=== PATIENT | male | born 1940 | race Caucasian/White ===

== ENCOUNTER 2018-04-19 17:39 | Emergency (ER) | payer BC, MEDICAID, MEDICARE | END 2018-04-19 20:10 | disposition home or self-care (01) | LOC: E/R 17:39 | DX: J95.01 Hemorrhage from tracheostomy stoma (principal) | CPT/HCPCS: 99282 ==

== ENCOUNTER 2018-04-28 21:16 | Inpatient (IN) | payer BC, MEDICAID ==
[2018-04-28 21:47] LABS: WHITE BLOOD COUNT 30.9 10^3/ul (4.8-10.8)
[2018-04-28 21:47] LABS: ABNORMAL IP MESSAGE 1; ADD MAN DIFF? YES; HEMOGLOBIN 10.7 g/dl (14.0-18.0); MEAN CORPUSCULAR HEMOGLOBIN 32.6 pg (29.0-33.0); MEAN CORPUSCULAR HGB CONC 30.6 g/dl (32.0-37.0); MEAN CORPUSCULAR VOLUME 106.7 fl (82.0-101.0); MEAN PLATELET VOLUME 11.3 fl (7.4-10.4); NUCLEATED RED BLOOD CELLS% 0.1 /100WBC (0.0-0.0); PLATELET COUNT 255 10^3/UL (140-415); POSITIVE DIFF @See below; RED BLOOD COUNT 3.28 10^6/ul (4.70-6.10); RED CELL DISTRIBUTION WIDTH 17.2 % (11.5-14.5)
[2018-04-28] MEDS: CEFEPIME 2GM/50 ML (PMX) 50 ML IVPB (22:01)
[2018-04-28] MEDS: ACETAMINOPHEN 650 MG SUPP PR (22:01)
[2018-04-28] MEDS: SOD CHLORIDE 0.9% 1,000 ML IV ×3 (22:01→23:10)
[2018-04-28 22:06] LABS: ANION GAP 22 (8-16); CARBON DIOXIDE 16 mmol/L (21-31); CHLORIDE 122 mmol/L (97-110); GLUCOSE 197 mg/dl (70-220); SODIUM 154 mmol/L (135-144)
[2018-04-28 22:07] LABS: INR 1.49; PROTIME 18.3 Sec (11.9-14.9); PT RATIO 1.4
[2018-04-28 22:08] LABS: PARTIAL THROMBOPLASTIN TIME 30.7 Sec (23.0-35.0)
[2018-04-28 22:19] LABS: LACTIC ACID 3.2 mmol/L (0.5-2.0)
[2018-04-28 22:30] LABS: POTASSIUM 6.2 mmol/L (3.5-5.1)
[2018-04-28 22:31] LABS: BLOOD UREA NITROGEN > 240 mg/dl (7-20); TROPONIN-I 0.016 ng/ml (0.000-0.120)
[2018-04-28 22:36] LABS: ANISOCYTOSIS 1+ (0-0); BAND NEUTROPHILS % (M) 13 % (0-4); EOSINOPHILS % (M) 1 % (0-7); LYMPHOCYTES #M 0.9 10^3/ul (0.8-2.9); LYMPHOCYTES % (M) 3 % (15-51); MONOCYTE #M 0.3 10^3/ul (0.3-0.9); MONOCYTES % (M) 1 % (0-11); PLATELET ESTIMATE NORMAL; SEG NEUT #M 26.6 10^3/ul (1.6-7.5); SEGMENTED NEUTROPHILS (M) % 82 % (39-77); SMUDGE%M 8 % (0-0)
[2018-04-28] MEDS: VANCOMYCIN 1 GM (PMX) 250 ML IVPB (22:49)
[2018-04-28] MEDS: SOD CHLORIDE 0.9% 150 ML IV (23:11)
[2018-04-28] MEDS: CALCIUM GLUCONATE 10% 1 GM in DEXTROSE 5% 100 ML IVPB (23:12)
[2018-04-28] MEDS: METOPROLOL 5 MG INJ IV (23:16)
[2018-04-28] MEDS ORDERED: IPRATROPIUM (HFA) 12.9 GM INHALER INH (23:30)
[2018-04-28] MEDS ORDERED: VANCOMYCIN IV PER PHARMACY XX (23:30)
[2018-04-28] MEDS ORDERED: ALBUTEROL 0.083% (NEB) 2.5 MG/3 ML AMP NEB ×2 (23:30)
[2018-04-28] MEDS: DOCUSATE SODIUM 100 MG CAP PO (23:30)
[2018-04-28] MEDS: MIDODRINE 5 MG TAB GTB (23:45)
[2018-04-29] MEDS ORDERED: DEXTROSE 50% 50 ML SYRINGE IV
[2018-04-29] MEDS: NORepinephrine 8MG/250 ML (PMX 250 ML IV (00:08)
[2018-04-29] MEDS: NA BICARBONATE 8.4% 50 ML SYG IV ×3 (00:12→07:00)
[2018-04-29 00:16] LABS: ADD UMIC YES; UR ASCORBIC ACID NEGATIVE (NEGATIVE); UR BACTERIA MODERATE /HPF (NONE SEEN); UR BILIRUBIN (Dip) NEGATIVE (NEGATIVE); UR BLOOD (Dip) 2+ mg/dL (NEGATIVE); UR CLARITY TURBID (CLEAR); UR COLOR AMBER (YELLOW); UR GLUCOSE (Dip) 1+ mg/dL (NEGATIVE); UR KETONES (Dip) TRACE mg/dL (NEGATIVE); UR LEUKOCYTE ESTERASE (Dip) 2+ Leu/ul (NEGATIVE); UR NITRITE (Dip) NEGATIVE (NEGATIVE); UR RBC 36 /HPF (0-5); UR SPECIFIC GRAVITY (Dip) 1.026 (1.003-1.030); UR TOTAL PROTEIN (Dip) 2+ mg/dl (NEGATIVE); UR UROBILINOGEN (Dip) NEGATIVE (NEGATIVE); UR WBC 87 /HPF (0-5)
[2018-04-29 00:25] LABS: AADO2 Arterial 188.9 mmHg (7.0-24.0); Arterial Base Excess -4.9 mmol/L (-3.0-3); Arterial Blood Gas Oxygen Sat 93.2 mmHG (95.0-100.0); Arterial COHb 0.3 % (0.0-3.0); Arterial Fraction of Oxyhgb 92.6 % (93.0-99.0); Arterial MetHb 0.3 % (0.0-1.5); Arterial pCO2 27.4 mmhg (35-45); MODE COOL AEROSOL; Site Right Brachial
[2018-04-29 00:30] LABS: MAGNESIUM 2.5 mg/dl (1.7-2.5)
[2018-04-29] MEDS: DEXTROSE 5% 1,000 ML IV (00:31)
[2018-04-29 00:33] LABS: ALANINE AMINOTRANSFERASE 266 IU/L (13-69); ALBUMIN/GLOBULIN RATIO 0.58; ALKALINE PHOSPHATASE 211 IU/L (42-121); ANION GAP 16 (8-16); ASPARTATE AMINO TRANSFERASE 93 IU/L (15-46); BILIRUBIN,INDIRECT 0.1 mg/dl (0-1.1); BILIRUBIN,TOTAL 0.1 mg/dl (0.2-1.3); CALCIUM 9.1 mg/dl (8.4-10.2); CARBON DIOXIDE 15 mmol/L (21-31); CHLORIDE 127 mmol/L (97-110); CREATININE 4.68 mg/dl (0.61-1.24); GLUCOSE 210 mg/dl (70-220); POTASSIUM 5.2 mmol/L (3.5-5.1); SODIUM 153 mmol/L (135-144); TOTAL PROTEIN 5.4 g/dl (6.1-8.1)
[2018-04-29 00:46] LABS: BLOOD UREA NITROGEN > 240 mg/dl (7-20)
[2018-04-29 00:50] LABS: LACTIC ACID 2.2 mmol/L (0.5-2.0)
[2018-04-29] MEDS: ACCU-CHEK XX ×23 (02:00→23:00)
[2018-04-29 02:03] LABS: HEMOGLOBIN A1C 5.4 % (0-5.9)
[2018-04-29] MEDS: PIPER-TAZO 2.25 GM (PMX) 50 ML IVPB ×3 (02:04→20:57)
[2018-04-29 02:33] LABS: SODIUM,URINE RANDOM 29 mmol/L (30-90)
[2018-04-29 02:38] LABS: CREATININE,URINE RANDOM 90.65 mg/dl (20-370)
[2018-04-29 02:42] LABS: UR AMORPHOUS CRYSTAL FEW /HPF (NONE SEEN); UR BACTERIA FEW /HPF (NONE SEEN); UR RBC 36 /HPF (0-5); UR SQUAMOUS EPITHELIAL CELL FEW /HPF (FEW); UR WBC > 182 /HPF (0-5)
[2018-04-29 02:57] LABS: PROTEIN/CREAT RATIO 2.97 RATIO
[2018-04-29] MEDS: METOPROLOL 5 MG INJ IV (03:08)
[2018-04-29] MEDS ORDERED: CARBOXYMETHYLCELLULOSE 0.5% 0.4 ML OPH BOTH EYES (03:30)
[2018-04-29] MEDS: morphine 2 MG INJ IV (04:26)
[2018-04-29] MEDS: DILTIAZEM 25 MG INJ IV ×2 (04:34→05:00)
[2018-04-29] MEDS: VANCOMYCIN 750 MG in SOD CHLORIDE 0.9% 150 ML IVPB (05:00)
[2018-04-29 05:02] LABS: LACTIC ACID 2.7 mmol/L (0.5-2.0)
[2018-04-29 05:05] LABS: AADO2 Arterial 316.8 mmHg (7.0-24.0); Allen Test ACCEPTAB; Arterial Base Excess -11.4 mmol/L (-3.0-3); Arterial COHb 0.3 % (0.0-3.0); Arterial Fraction of Oxyhgb 95.4 % (93.0-99.0); Arterial HCO3 12.6 mmol/L (22.0-26.0); Arterial MetHb 0.3 % (0.0-1.5); Arterial Total Hemglobin 11.3 g/dl (12.0-18.0); Arterial pCO2 23.9 mmhg (35-45); MODE TRACH COLLAR; Site Right Radial
[2018-04-29] MEDS: INSULIN HUMAN REGULAR 100 UNIT in SOD CHLORIDE 0.9% 99 ML IV (05:10)
[2018-04-29] MEDS: PANTOPRAZOLE 40 MG INJ IV (05:32)
[2018-04-29] MEDS: LEVOTHYROXINE 50 MCG TAB GTB (06:14)
[2018-04-29] MEDS: DILTIAZEM-D5W 125MG/125ML DRIP 125 ML IV (06:22)
[2018-04-29 06:25] LABS: OSMOLALITY,URINE 466 mOsm/kg (250-1200)
[2018-04-29 06:25] LABS: OSMOLALITY 431 mOsm/kg (280-295)
[2018-04-29 06:42] LABS: ALANINE AMINOTRANSFERASE 244 IU/L (13-69); ALBUMIN 2.2 g/dl (3.3-4.9); ALBUMIN/GLOBULIN RATIO 0.56; ALKALINE PHOSPHATASE 215 IU/L (42-121); ANION GAP 16 (8-16); ASPARTATE AMINO TRANSFERASE 89 IU/L (15-46); BILIRUBIN,INDIRECT 0.1 mg/dl (0-1.1); BILIRUBIN,TOTAL 0.1 mg/dl (0.2-1.3); CARBON DIOXIDE 16 mmol/L (21-31); CHLORIDE 127 mmol/L (97-110); CREATINE KINASE 768 IU/L (23-200); CREATININE 4.49 mg/dl (0.61-1.24); GLUCOSE 273 mg/dl (70-220); POTASSIUM 4.8 mmol/L (3.5-5.1); SODIUM 154 mmol/L (135-144); TOTAL PROTEIN 6.1 g/dl (6.1-8.1)
[2018-04-29 06:54] LABS: CK INDEX 1.2; TROPONIN-I 0.051 ng/ml (0.000-0.120)
[2018-04-29] MEDS: SOD CHLORIDE 0.45% 1,000 ML IV ×3 (07:00→20:24)
[2018-04-29] MEDS ORDERED: AMIODARONE 900 MG in DEXTROSE 5% 482 ML IV (08:00)
[2018-04-29] MEDS ORDERED: AMIODARONE 150MG/D5W BOLUS 100 ML IV (08:00)
[2018-04-29] MEDS ORDERED: AMIODARONE 150MG/D5W BOLUS 100 ML ×2 (08:18→12:22)
[2018-04-29 08:35] LABS: ALANINE AMINOTRANSFERASE 229 IU/L (13-69); ALBUMIN 2.2 g/dl (3.3-4.9); ALBUMIN/GLOBULIN RATIO 0.57; ALKALINE PHOSPHATASE 198 IU/L (42-121); ANION GAP 15 (8-16); ASPARTATE AMINO TRANSFERASE 79 IU/L (15-46); BILIRUBIN,INDIRECT 0.1 mg/dl (0-1.1); BILIRUBIN,TOTAL 0.1 mg/dl (0.2-1.3); CALCIUM 8.9 mg/dl (8.4-10.2); CARBON DIOXIDE 17 mmol/L (21-31); CHLORIDE 127 mmol/L (97-110); CREATININE 4.39 mg/dl (0.61-1.24); GLUCOSE 168 mg/dl (70-220); POTASSIUM 4.4 mmol/L (3.5-5.1); SODIUM 155 mmol/L (135-144)
[2018-04-29] MEDS ORDERED: NON-FORMULARY/PATIENT OWN MED (Protein Supplement (Promod) 30 ML) GTB (09:00)
[2018-04-29 09:10] LABS: PHOSPHORUS 3.1 mg/dl (2.5-4.9)
[2018-04-29 09:10] LABS: MAGNESIUM 2.3 mg/dl (1.7-2.5)
[2018-04-29] MEDS: ASCORBIC ACID 500 MG TAB GTB (09:54)
[2018-04-29] MEDS: FLUDROCORTISONE 0.1 MG TAB GTB (09:55)
[2018-04-29] MEDS: DOCUSATE SODIUM 100 MG CAP PO ×2 (11:30→22:59)
[2018-04-29] MEDS: AMIODARONE 150MG/D5W BOLUS 100 ML IV (12:46)
[2018-04-29] MEDS: ASPIRIN 325 MG TAB PO (13:08)
[2018-04-29] MEDS: DIGOXIN 500 MCG INJ IV ×2 (13:08→17:56)
[2018-04-29 13:14] LABS: ALANINE AMINOTRANSFERASE 219 IU/L (13-69); ALBUMIN 1.9 g/dl (3.3-4.9); ALBUMIN/GLOBULIN RATIO 0.54; ALKALINE PHOSPHATASE 200 IU/L (42-121); ANION GAP 17 (8-16); ASPARTATE AMINO TRANSFERASE 73 IU/L (15-46); BILIRUBIN,INDIRECT 0.2 mg/dl (0-1.1); BILIRUBIN,TOTAL 0.2 mg/dl (0.2-1.3); CALCIUM 8.6 mg/dl (8.4-10.2); CARBON DIOXIDE 17 mmol/L (21-31); CHLORIDE 127 mmol/L (97-110); GLUCOSE 110 mg/dl (70-220); POTASSIUM 4.7 mmol/L (3.5-5.1); SODIUM 156 mmol/L (135-144); TOTAL PROTEIN 5.4 g/dl (6.1-8.1)
[2018-04-29 13:17] LABS: CREATINE KINASE 593 IU/L (23-200)
[2018-04-29 13:25] LABS: CK INDEX 1.1; CK-MB 6.73 ng/ml (0.0-2.4); TROPONIN-I 0.055 ng/ml (0.000-0.120)
[2018-04-29] MEDS: HEPARIN 5,000 UNIT/0.5 ML VIAL SC ×2 (14:00→21:49)
[2018-04-29] MEDS: AMIODARONE 900 MG in DEXTROSE 5% 482 ML IV (14:38)
[2018-04-29] MEDS: HYDROCORTISONE 100 MG INJ IV ×2 (14:54→21:48)
[2018-04-29 15:37] LABS: ALANINE AMINOTRANSFERASE 190 IU/L (13-69); ALBUMIN 2.5 g/dl (3.3-4.9); ALBUMIN/GLOBULIN RATIO 0.71; ALKALINE PHOSPHATASE 186 IU/L (42-121); ANION GAP 13 (8-16); ASPARTATE AMINO TRANSFERASE 70 IU/L (15-46); BILIRUBIN,INDIRECT 0.1 mg/dl (0-1.1); BILIRUBIN,TOTAL 0.1 mg/dl (0.2-1.3); CALCIUM 8.6 mg/dl (8.4-10.2); CARBON DIOXIDE 17 mmol/L (21-31); CHLORIDE 128 mmol/L (97-110); CREATININE 4.26 mg/dl (0.61-1.24); GLUCOSE 116 mg/dl (70-220); POTASSIUM 4.7 mmol/L (3.5-5.1); SODIUM 153 mmol/L (135-144)
[2018-04-29 15:39] LABS: LACTIC ACID 1.4 mmol/L (0.5-2.0)
[2018-04-29] MEDS: VASOPRESSIN 60 UNIT in DEXTROSE 5% 57 ML IV (15:42)
[2018-04-29 15:46] LABS: BLOOD UREA NITROGEN 236 mg/dl (7-20)
[2018-04-29] MEDS: ATORVASTATIN 10 MG TAB GTB (20:24)
[2018-04-29 20:43] LABS: ALANINE AMINOTRANSFERASE 182 IU/L (13-69); ALBUMIN 2.2 g/dl (3.3-4.9); ALBUMIN/GLOBULIN RATIO 0.59; ALKALINE PHOSPHATASE 196 IU/L (42-121); ANION GAP 16 (8-16); ASPARTATE AMINO TRANSFERASE 61 IU/L (15-46); BILIRUBIN,INDIRECT 0.1 mg/dl (0-1.1); BILIRUBIN,TOTAL 0.1 mg/dl (0.2-1.3); CALCIUM 8.5 mg/dl (8.4-10.2); CARBON DIOXIDE 17 mmol/L (21-31); CHLORIDE 125 mmol/L (97-110); CREATININE 4.27 mg/dl (0.61-1.24); GLUCOSE 132 mg/dl (70-220); POTASSIUM 4.8 mmol/L (3.5-5.1); SODIUM 153 mmol/L (135-144); TOTAL PROTEIN 5.9 g/dl (6.1-8.1)
[2018-04-29 20:52] LABS: BLOOD UREA NITROGEN 230 mg/dl (7-20)
[2018-04-29 21:06] LABS: AADO2 Arterial 275.8 mmHg (7.0-24.0); Allen Test ACCEPTAB; Arterial Base Excess -8.3 mmol/L (-3.0-3); Arterial Blood Gas Oxygen Sat 98.3 mmHG (95.0-100.0); Arterial COHb 0.2 % (0.0-3.0); Arterial Fraction of Oxyhgb 97.7 % (93.0-99.0); Arterial HCO3 14.7 mmol/L (22.0-26.0); Arterial MetHb 0.4 % (0.0-1.5); Arterial Total Hemglobin 9.6 g/dl (12.0-18.0); Arterial pCO2 23.1 mmhg (35-45); MODE TRACH COLLAR; Site Left Radial
[2018-04-29] MEDS: ACETAMINOPHEN 650 MG SUPP PR (21:17)
[2018-04-30] MEDS: ACCU-CHEK XX ×20 (00:20→19:00)
[2018-04-30] MEDS: INSULIN HUMAN REGULAR 100 UNIT in SOD CHLORIDE 0.9% 99 ML IV (01:57)
[2018-04-30] MEDS: DEXTROSE 50% 50 ML SYRINGE IV (02:23)
[2018-04-30] MEDS: VASOPRESSIN 60 UNIT in DEXTROSE 5% 57 ML IV ×2 (03:30→06:26)
[2018-04-30] MEDS: SOD CHLORIDE 0.45% 1,000 ML IV ×3 (03:41→16:20)
[2018-04-30 05:13] LABS: ABNORMAL IP MESSAGE 1; HEMATOCRIT 26.4 % (42.0-52.0); HEMOGLOBIN 8.1 g/dl (14.0-18.0); MEAN CORPUSCULAR HEMOGLOBIN 32.9 pg (29.0-33.0); MEAN CORPUSCULAR HGB CONC 30.7 g/dl (32.0-37.0); MEAN CORPUSCULAR VOLUME 107.3 fl (82.0-101.0); MEAN PLATELET VOLUME 11.9 fl (7.4-10.4); NUCLEATED RED BLOOD CELLS% 0.1 /100WBC (0.0-0.0); PLATELET COUNT 175 10^3/UL (140-415); POSITIVE DIFF @See below; RED BLOOD COUNT 2.46 10^6/ul (4.70-6.10); RED CELL DISTRIBUTION WIDTH 17.3 % (11.5-14.5)
[2018-04-30 05:13] LABS: WHITE BLOOD COUNT 32.2 10^3/ul (4.8-10.8)
[2018-04-30 05:46] LABS: ANION GAP 18 (8-16); CALCIUM 7.9 mg/dl (8.4-10.2); CARBON DIOXIDE 15 mmol/L (21-31); CHLORIDE 122 mmol/L (97-110); CREATININE 4.06 mg/dl (0.61-1.24); GLUCOSE 154 mg/dl (70-220); MAGNESIUM 2.1 mg/dl (1.7-2.5); PHOSPHORUS 3.7 mg/dl (2.5-4.9); SODIUM 150 mmol/L (135-144)
[2018-04-30 05:48] LABS: ADD MAN DIFF? YES
[2018-04-30 05:56] LABS: BLOOD UREA NITROGEN 219 mg/dl (7-20)
[2018-04-30] MEDS: HYDROCORTISONE 100 MG INJ IV ×3 (06:11→21:10)
[2018-04-30] MEDS: PANTOPRAZOLE 40 MG INJ IV (06:11)
[2018-04-30] MEDS: LEVOTHYROXINE 100 MCG VIAL IV (06:11)
[2018-04-30] MEDS: HEPARIN 5,000 UNIT/0.5 ML VIAL SC ×3 (06:31→21:11)
[2018-04-30 06:42] LABS: ANISOCYTOSIS 1+ (0-0); BAND NEUTROPHILS #M 0.9 10^3/ul (0.0-0.6); BAND NEUTROPHILS % (M) 3 % (0-4); BURR CELLS 1+ (0-0); EOSINOPHILS % (M) 1 % (0-7); LYMPHOCYTES #M 1.6 10^3/ul (0.8-2.9); LYMPHOCYTES % (M) 5 % (15-51); PLATELET ESTIMATE NORMAL; POIKILOCYTOSIS 1+ (0-0); SEG NEUT #M 29.6 10^3/ul (1.6-7.5); SEGMENTED NEUTROPHILS (M) % 91 % (39-77); SMUDGE%M 15 % (0-0)
[2018-04-30] MEDS: FLUDROCORTISONE 0.1 MG TAB GTB (10:00)
[2018-04-30] MEDS: ASCORBIC ACID 500 MG TAB GTB (10:00)
[2018-04-30] MEDS: ASPIRIN 325 MG TAB PO (10:00)
[2018-04-30] MEDS: ACETAMINOPHEN 650 MG SUPP PR (10:01)
[2018-04-30] MEDS: PIPER-TAZO 2.25 GM (PMX) 50 ML IVPB (10:01)
[2018-04-30] MEDS: HYDROmorphONE 1 MG/ML SYG IV ×4 (11:00→21:09)
[2018-04-30] MEDS ORDERED: HYDROmorphONE 2 MG/ML SYG (11:14)
[2018-04-30] MEDS: INSULIN ASPART [NOVOLOG] 3 ML PEN SC ×3 (11:23→21:00)
[2018-04-30] MEDS: DOCUSATE SODIUM 100 MG CAP PO ×2 (11:54→22:38)
[2018-04-30 13:18] LABS: HEPATITIS B SURFACE ANTIBODY NEGATIVE (NEGATIVE)
[2018-04-30] MEDS: MUPIROCIN 2% 22 GM OINT TOP (14:00)
[2018-04-30 14:15] LABS: HEPATITIS B SURFACE ANTIGEN NEGATIVE (NEGATIVE)
[2018-04-30 14:27] LABS: ANION GAP 18 (8-16); CARBON DIOXIDE 14 mmol/L (21-31); CHLORIDE 123 mmol/L (97-110); CREATININE 4.38 mg/dl (0.61-1.24); GLUCOSE 147 mg/dl (70-220); POTASSIUM 4.9 mmol/L (3.5-5.1); SODIUM 150 mmol/L (135-144)
[2018-04-30 14:37] LABS: BLOOD UREA NITROGEN 222 mg/dl (7-20)
[2018-04-30] MEDS: MEROPENEM 500MG/50 ML (PMX) 50 ML IVPB ×2 (17:29→22:36)
[2018-04-30] MEDS: PHENYLephrine 80 MG in DEXTROSE 5% 492 ML IV (19:00)
[2018-04-30] MEDS: AMIODARONE 900 MG in DEXTROSE 5% 482 ML IV (20:17)
[2018-04-30 20:28] LABS: AADO2 Arterial 152.8 mmHg (7.0-24.0); Allen Test ACCEPTAB; Arterial Base Excess -10.4 mmol/L (-3.0-3); Arterial Blood Gas Oxygen Sat 97.4 mmHG (95.0-100.0); Arterial COHb 0.3 % (0.0-3.0); Arterial Fraction of Oxyhgb 96.7 % (93.0-99.0); Arterial HCO3 14.2 mmol/L (22.0-26.0); Arterial MetHb 0.4 % (0.0-1.5); Arterial Total Hemglobin 8.8 g/dl (12.0-18.0); Arterial pCO2 27.1 mmhg (35-45); MODE VENT - AC; Site Right Radial
[2018-04-30] MEDS: ATORVASTATIN 10 MG TAB GTB (21:10)
[2018-05-01] MEDS: SOD CHLORIDE 0.45% 1,000 ML IV (00:51)
[2018-05-01] MEDS: MUPIROCIN 2% 22 GM OINT TOP ×3 (00:52→23:27)
[2018-05-01] MEDS: PHENYLephrine 80 MG in DEXTROSE 5% 492 ML IV ×3 (03:05→22:43)
[2018-05-01] MEDS: VASOPRESSIN 60 UNIT in DEXTROSE 5% 57 ML IV ×2 (03:30→14:34)
[2018-05-01] MEDS: HYDROmorphONE 1 MG/ML SYG IV ×2 (03:45→13:29)
[2018-05-01] MEDS: COLLAGENASE 5 GM (UD JAR) TOP ×3 (03:56→08:19)
[2018-05-01] MEDS ORDERED: PENDING SANTYL ORDER FOR WOUND CARE XX (04:00)
[2018-05-01] MEDS: HYDROCORTISONE 100 MG INJ IV ×3 (05:06→22:06)
[2018-05-01] MEDS: PANTOPRAZOLE 40 MG INJ IV (05:06)
[2018-05-01] MEDS: LEVOTHYROXINE 100 MCG VIAL IV (05:06)
[2018-05-01] MEDS: HEPARIN 5,000 UNIT/0.5 ML VIAL SC ×3 (05:14→22:12)
[2018-05-01 05:19] LABS: ADD MAN DIFF? NO
[2018-05-01 05:28] LABS: ABNORMAL IP MESSAGE 1; BASOPHIL # 0.1 10^3/ul (0.0-0.1); BASOPHILS % 0.2 % (0.0-2.0); HEMATOCRIT 25.6 % (42.0-52.0); HEMOGLOBIN 7.8 g/dl (14.0-18.0); LYMPHOCYTES # 0.9 10^3/ul (0.8-2.9); LYMPHOCYTES % 2.5 % (15.0-51.0); MEAN CORPUSCULAR HEMOGLOBIN 33.1 pg (29.0-33.0); MEAN CORPUSCULAR HGB CONC 30.5 g/dl (32.0-37.0); MEAN CORPUSCULAR VOLUME 108.5 fl (82.0-101.0); MEAN PLATELET VOLUME 11.5 fl (7.4-10.4); MONOCYTE # 0.6 10^3/ul (0.3-0.9); MONOCYTES % 1.6 % (0.0-11.0); NEUTROPHIL # 34.4 10^3/ul (1.6-7.5); NEUTROPHILS % 93.9 % (39.0-77.0); NUCLEATED RED BLOOD CELLS% 0.1 /100WBC (0.0-0.0); PLATELET COUNT 199 10^3/UL (140-415); POSITIVE DIFF @See below; RED BLOOD COUNT 2.36 10^6/ul (4.70-6.10); RED CELL DISTRIBUTION WIDTH 17.2 % (11.5-14.5)
[2018-05-01 05:28] LABS: WHITE BLOOD COUNT 36.7 10^3/ul (4.8-10.8)
[2018-05-01 05:36] LABS: VANCOMYCIN,RANDOM 11.1 ug/ml
[2018-05-01 05:46] LABS: ANION GAP 19 (8-16); CALCIUM 7.9 mg/dl (8.4-10.2); CARBON DIOXIDE 14 mmol/L (21-31); CHLORIDE 119 mmol/L (97-110); CREATININE 4.34 mg/dl (0.61-1.24); GLUCOSE 171 mg/dl (70-220); MAGNESIUM 2.2 mg/dl (1.7-2.5); PHOSPHORUS 6.6 mg/dl (2.5-4.9); POTASSIUM 4.8 mmol/L (3.5-5.1); SODIUM 147 mmol/L (135-144)
[2018-05-01 05:57] LABS: BLOOD UREA NITROGEN 217 mg/dl (7-20)
[2018-05-01] MEDS ORDERED: PHENYLephrine 20MG IN 250 ML 250 ML ×2 (07:38→10:44)
[2018-05-01] MEDS: SOD CHLORIDE 0.9% 1,000 ML IV ×2 (07:49→23:27)
[2018-05-01] MEDS: ASCORBIC ACID 500 MG TAB GTB (08:19)
[2018-05-01] MEDS: MEROPENEM 500MG/50 ML (PMX) 50 ML IVPB (08:19)
[2018-05-01] MEDS: ASPIRIN 325 MG TAB PO (08:19)
[2018-05-01] MEDS: FLUDROCORTISONE 0.1 MG TAB GTB (08:19)
[2018-05-01] MEDS: INSULIN ASPART [NOVOLOG] 3 ML PEN SC ×4 (08:52→21:00)
[2018-05-01] MEDS: DOCUSATE SODIUM 100 MG CAP PO ×2 (12:14→23:26)
[2018-05-01 16:06] LABS: MYCOPLASMA PNEUMONIAE AB (IGG) 1.43
[2018-05-01] MEDS: PIPER-TAZO 2.25 GM (PMX) 50 ML IVPB ×2 (17:43→23:32)
[2018-05-01] MEDS: AMIODARONE 200 MG TAB PO (17:44)
[2018-05-01] MEDS: VANCOMYCIN 1 GM 250 ML IVPB (17:44)
[2018-05-01] MEDS: MANNITOL 25% 50 ML INJ IV* ×2 (20:30→22:55)
[2018-05-01] MEDS ORDERED: ALBUMIN HUMAN 25% 0 ML (21:01)
[2018-05-01] MEDS: ATORVASTATIN 10 MG TAB GTB (22:06)
[2018-05-01] MEDS ORDERED: HEPARIN 1000 UNITS/ML 10 ML INJ CATHETER (22:30)
[2018-05-01] MEDS: HEPARIN 1000 UNITS/ML 10 ML INJ CATHETER (23:54)
[2018-05-02] MEDS: VASOPRESSIN 60 UNIT in DEXTROSE 5% 57 ML IV ×2 (03:30→15:30)
[2018-05-02 04:58] LABS: WHITE BLOOD COUNT 22.6 10^3/ul (4.8-10.8)
[2018-05-02 04:58] LABS: ABNORMAL IP MESSAGE 1; HEMATOCRIT 21.5 % (42.0-52.0); MEAN CORPUSCULAR HEMOGLOBIN 32.8 pg (29.0-33.0); MEAN CORPUSCULAR HGB CONC 31.2 g/dl (32.0-37.0); MEAN CORPUSCULAR VOLUME 105.4 fl (82.0-101.0); MEAN PLATELET VOLUME 11.7 fl (7.4-10.4); NUCLEATED RED BLOOD CELLS% 0.2 /100WBC (0.0-0.0); PLATELET COUNT 138 10^3/UL (140-415); POSITIVE DIFF @See below; RED BLOOD COUNT 2.04 10^6/ul (4.70-6.10); RED CELL DISTRIBUTION WIDTH 16.9 % (11.5-14.5)
[2018-05-02 05:18] LABS: ADD MAN DIFF? YES; HEMOGLOBIN 6.7 g/dl (14.0-18.0)
[2018-05-02 05:19] LABS: ANION GAP 13 (8-16); CALCIUM 7.3 mg/dl (8.4-10.2); CARBON DIOXIDE 20 mmol/L (21-31); CHLORIDE 114 mmol/L (97-110); CREATININE 2.97 mg/dl (0.61-1.24); GLUCOSE 145 mg/dl (70-220); MAGNESIUM 1.9 mg/dl (1.7-2.5); PHOSPHORUS 5.4 mg/dl (2.5-4.9); POTASSIUM 3.6 mmol/L (3.5-5.1); SODIUM 143 mmol/L (135-144)
[2018-05-02 05:32] LABS: BLOOD UREA NITROGEN 138 mg/dl (7-20)
[2018-05-02] MEDS: PANTOPRAZOLE 40 MG INJ IV (05:38)
[2018-05-02] MEDS: HYDROCORTISONE 100 MG INJ IV ×3 (05:38→21:22)
[2018-05-02] MEDS: PIPER-TAZO 2.25 GM (PMX) 50 ML IVPB ×3 (05:39→21:23)
[2018-05-02] MEDS: LEVOTHYROXINE 100 MCG VIAL IV (05:39)
[2018-05-02] MEDS: HEPARIN 5,000 UNIT/0.5 ML VIAL SC ×3 (05:41→21:24)
[2018-05-02 07:36] LABS: ANISOCYTOSIS 1+ (0-0); PLATELET ESTIMATE DECREASED; POIKILOCYTOSIS 1+ (0-0); POLYCHROMASIA 1+ (0-0); SEGMENTED NEUTROPHILS (M) % 100 % (39-77); SMUDGE%M 4 % (0-0); TOXIC GRANULATION 1+ (0-0)
[2018-05-02] MEDS: ASPIRIN 325 MG TAB PO (08:16)
[2018-05-02] MEDS: MUPIROCIN 2% 22 GM OINT TOP (08:17)
[2018-05-02] MEDS: COLLAGENASE 5 GM (UD JAR) TOP (08:17)
[2018-05-02] MEDS: SODIUM HYPOCHLORITE (1/40) 1 APPLIC BTL IRR (08:17)
[2018-05-02] MEDS: FLUDROCORTISONE 0.1 MG TAB GTB (08:17)
[2018-05-02] MEDS: ASCORBIC ACID 500 MG TAB GTB (08:17)
[2018-05-02] MEDS: AMIODARONE 200 MG TAB PO ×3 (08:18→21:22)
[2018-05-02 08:27] LABS: SODIUM,URINE RANDOM < 13 mmol/L (30-90)
[2018-05-02 08:30] LABS: ADD UMIC YES; UR ASCORBIC ACID NEGATIVE (NEGATIVE); UR BILIRUBIN (Dip) NEGATIVE (NEGATIVE); UR BLOOD (Dip) 2+ mg/dL (NEGATIVE); UR BUDDING YEAST FEW /HPF (NONE SEEN); UR CLARITY SLIGHTLY CLOUDY (CLEAR); UR COLOR YELLOW (YELLOW); UR GLUCOSE (Dip) NEGATIVE (NEGATIVE); UR KETONES (Dip) NEGATIVE (NEGATIVE); UR LEUKOCYTE ESTERASE (Dip) 3+ Leu/ul (NEGATIVE); UR NITRITE (Dip) NEGATIVE (NEGATIVE); UR RBC 2 /HPF (0-5); UR SPECIFIC GRAVITY (Dip) 1.012 (1.003-1.030); UR TOTAL PROTEIN (Dip) NEGATIVE (NEGATIVE); UR UROBILINOGEN (Dip) NEGATIVE (NEGATIVE); UR WBC 28 /HPF (0-5)
[2018-05-02] MEDS: INSULIN ASPART [NOVOLOG] 3 ML PEN SC ×4 (08:30→21:00)
[2018-05-02 11:26] LABS: IMMEDIATE SPIN CROSSMATCH 1 2
[2018-05-02] MEDS: DOCUSATE SODIUM 100 MG CAP PO ×2 (11:30→23:42)
[2018-05-02 11:52] LABS: HEMOGLOBIN 6.2 g/dl (14.0-18.0)
[2018-05-02] MEDS: SOD CHLORIDE 0.9% 1,000 ML IV ×2 (13:22→22:43)
[2018-05-02] MEDS: HYDROmorphONE 1 MG/ML SYG IV (14:30)
[2018-05-02] MEDS: MANNITOL 25% 50 ML INJ IV* (15:30)
[2018-05-02] MEDS: ONDANSETRON 4 MG INJ IV (16:02)
[2018-05-02] MEDS: NYSTATIN SUSP 5 ML CUP PO ×2 (18:40→21:21)
[2018-05-02] MEDS: HEPARIN 1000 UNITS/ML 10 ML INJ CATHETER (19:37)
[2018-05-02] MEDS: ATORVASTATIN 10 MG TAB GTB (21:22)
[2018-05-02] MEDS ORDERED: VANCOMYCIN IV PER PHARMACY XX (21:30)
[2018-05-02] MEDS: LORAZEPAM 2 MG INJ IV (23:27)
[2018-05-03] MEDS: PHENYLephrine 80 MG in DEXTROSE 5% 492 ML IV (01:38)
[2018-05-03] MEDS: MUPIROCIN 2% 22 GM OINT TOP ×3 (03:13→22:20)
[2018-05-03] MEDS: VASOPRESSIN 60 UNIT in DEXTROSE 5% 57 ML IV ×2 (03:15→15:30)
[2018-05-03] MEDS: SOD CHLORIDE 0.9% 1,000 ML IV ×2 (03:17→12:50)
[2018-05-03 04:48] LABS: ADD MAN DIFF? NO
[2018-05-03 04:49] LABS: ABNORMAL IP MESSAGE 1; BASOPHILS % 0.1 % (0.0-2.0); HEMATOCRIT 27.6 % (42.0-52.0); HEMOGLOBIN 8.9 g/dl (14.0-18.0); LYMPHOCYTES # 0.7 10^3/ul (0.8-2.9); LYMPHOCYTES % 4.5 % (15.0-51.0); MEAN CORPUSCULAR HEMOGLOBIN 31.4 pg (29.0-33.0); MEAN CORPUSCULAR HGB CONC 32.2 g/dl (32.0-37.0); MEAN CORPUSCULAR VOLUME 97.5 fl (82.0-101.0); MEAN PLATELET VOLUME 11.1 fl (7.4-10.4); MONOCYTE # 0.4 10^3/ul (0.3-0.9); MONOCYTES % 2.6 % (0.0-11.0); NEUTROPHIL # 13.2 10^3/ul (1.6-7.5); NEUTROPHILS % 91.1 % (39.0-77.0); NUCLEATED RED BLOOD CELLS% 0.1 /100WBC (0.0-0.0); PLATELET COUNT 98 10^3/UL (140-415); POSITIVE DIFF @See below; RED BLOOD COUNT 2.83 10^6/ul (4.70-6.10); RED CELL DISTRIBUTION WIDTH 18.9 % (11.5-14.5)
[2018-05-03 04:49] LABS: WHITE BLOOD COUNT 14.5 10^3/ul (4.8-10.8)
[2018-05-03 05:09] LABS: ANION GAP 10 (8-16); BLOOD UREA NITROGEN 95 mg/dl (7-20); CARBON DIOXIDE 21 mmol/L (21-31); CHLORIDE 117 mmol/L (97-110); CREATININE 2.16 mg/dl (0.61-1.24); GLUCOSE 138 mg/dl (70-220); POTASSIUM 3.9 mmol/L (3.5-5.1); SODIUM 144 mmol/L (135-144)
[2018-05-03] MEDS: PIPER-TAZO 2.25 GM (PMX) 50 ML IVPB ×3 (05:46→22:12)
[2018-05-03] MEDS: HYDROCORTISONE 100 MG INJ IV ×2 (05:46→17:53)
[2018-05-03] MEDS: LEVOTHYROXINE 100 MCG VIAL IV (05:46)
[2018-05-03] MEDS: HEPARIN 5,000 UNIT/0.5 ML VIAL SC ×2 (05:47→14:45)
[2018-05-03] MEDS: PANTOPRAZOLE 40 MG INJ IV (05:48)
[2018-05-03] MEDS: INSULIN ASPART [NOVOLOG] 3 ML PEN SC ×4 (07:35→22:12)
[2018-05-03] MEDS: ASPIRIN 325 MG TAB PO (08:42)
[2018-05-03] MEDS: ASCORBIC ACID 500 MG TAB GTB (08:42)
[2018-05-03] MEDS: AMIODARONE 200 MG TAB PO ×3 (08:42→22:09)
[2018-05-03] MEDS: NYSTATIN SUSP 5 ML CUP PO ×4 (08:42→22:09)
[2018-05-03] MEDS: COLLAGENASE 5 GM (UD JAR) TOP (08:42)
[2018-05-03] MEDS: SODIUM HYPOCHLORITE (1/40) 1 APPLIC BTL IRR (08:43)
[2018-05-03] MEDS: FLUDROCORTISONE 0.1 MG TAB GTB (09:19)
[2018-05-03] MEDS: HYDROmorphONE 1 MG/ML SYG IV ×2 (10:06→22:20)
[2018-05-03] MEDS: DOCUSATE SODIUM 100 MG CAP PO ×2 (11:30→23:51)
[2018-05-03] MEDS: LORAZEPAM 2 MG INJ IV (15:15)
[2018-05-03] MEDS: MAGNESIUM SULFATE 2 GM/50 ML 50 ML IVPB (16:12)
[2018-05-03] MEDS: ATORVASTATIN 10 MG TAB GTB (22:09)
[2018-05-04] MEDS: LORAZEPAM 2 MG INJ IV ×3 (00:17→21:46)
[2018-05-04] MEDS: ACETAMINOPHEN 650MG/20.3ML CUP GTB (00:18)
[2018-05-04] MEDS: SOD CHLORIDE 0.9% 1,000 ML IV ×3 (02:10→19:32)
[2018-05-04] MEDS: HYDROmorphONE 1 MG/ML SYG IV ×3 (03:21→19:57)
[2018-05-04] MEDS: VASOPRESSIN 60 UNIT in DEXTROSE 5% 57 ML IV ×2 (03:30→15:30)
[2018-05-04 04:55] LABS: ADD MAN DIFF? NO
[2018-05-04 05:05] LABS: ABNORMAL IP MESSAGE 1; BASOPHILS % 0.1 % (0.0-2.0); HEMATOCRIT 24.4 % (42.0-52.0); LYMPHOCYTES # 0.8 10^3/ul (0.8-2.9); LYMPHOCYTES % 5.9 % (15.0-51.0); MEAN CORPUSCULAR HEMOGLOBIN 32.3 pg (29.0-33.0); MEAN CORPUSCULAR HGB CONC 32.8 g/dl (32.0-37.0); MEAN CORPUSCULAR VOLUME 98.4 fl (82.0-101.0); MEAN PLATELET VOLUME 11.3 fl (7.4-10.4); MONOCYTE # 0.5 10^3/ul (0.3-0.9); MONOCYTES % 3.5 % (0.0-11.0); NEUTROPHIL # 12.5 10^3/ul (1.6-7.5); NEUTROPHILS % 88.3 % (39.0-77.0); PLATELET COUNT 87 10^3/UL (140-415); POSITIVE DIFF @See below; RED BLOOD COUNT 2.48 10^6/ul (4.70-6.10); RED CELL DISTRIBUTION WIDTH 18.3 % (11.5-14.5)
[2018-05-04 05:05] LABS: WHITE BLOOD COUNT 14.1 10^3/ul (4.8-10.8)
[2018-05-04 05:27] LABS: INR 1.22; PROTIME 15.6 Sec (11.9-14.9); PT RATIO 1.2
[2018-05-04 05:28] LABS: PARTIAL THROMBOPLASTIN TIME 29.4 Sec (23.0-35.0)
[2018-05-04] MEDS: HYDROCORTISONE 100 MG INJ IV ×2 (05:35→16:04)
[2018-05-04] MEDS: PANTOPRAZOLE 40 MG INJ IV (05:35)
[2018-05-04] MEDS: PIPER-TAZO 2.25 GM (PMX) 50 ML IVPB (05:35)
[2018-05-04] MEDS: LEVOTHYROXINE 100 MCG VIAL IV (05:35)
[2018-05-04 05:43] LABS: LACTIC ACID 1.7 mmol/L (0.5-2.0)
[2018-05-04 05:46] LABS: ANION GAP 11 (8-16); BLOOD UREA NITROGEN 90 mg/dl (7-20); CALCIUM 6.9 mg/dl (8.4-10.2); CARBON DIOXIDE 20 mmol/L (21-31); CHLORIDE 114 mmol/L (97-110); CREATININE 2.36 mg/dl (0.61-1.24); GLUCOSE 148 mg/dl (70-220); MAGNESIUM 2.2 mg/dl (1.7-2.5); PHOSPHORUS 5.7 mg/dl (2.5-4.9); POTASSIUM 3.3 mmol/L (3.5-5.1); SODIUM 142 mmol/L (135-144)
[2018-05-04 05:55] LABS: VANCOMYCIN,RANDOM 10.3 ug/ml
[2018-05-04 06:26] LABS: HIV 1&2 ANTIBODY NEGATIVE (NEGATIVE)
[2018-05-04 06:26] LABS: HEPATITIS C VIRAL ANTIBODY NEGATIVE (NEGATIVE)
[2018-05-04] MEDS: INSULIN ASPART [NOVOLOG] 3 ML PEN SC ×4 (07:35→21:00)
[2018-05-04 07:45] LABS: AADO2 Arterial 67.8 mmHg (7.0-24.0); Allen Test ACCEPTAB; Arterial Base Excess -6.7 mmol/L (-3.0-3); Arterial Blood Gas Oxygen Sat 97.6 mmHG (95.0-100.0); Arterial COHb 0.3 % (0.0-3.0); Arterial HCO3 17.9 mmol/L (22.0-26.0); Arterial MetHb 0.3 % (0.0-1.5); Arterial Total Hemglobin 9.9 g/dl (12.0-18.0); Arterial pCO2 32.2 mmhg (35-45); MODE VENT - AC; Site Right Radial
[2018-05-04] MEDS: MUPIROCIN 2% 22 GM OINT TOP ×2 (08:07→21:47)
[2018-05-04] MEDS: POTASSIUM CHLORIDE 20 MEQ POWDER FOR ORAL SOLN GTB (08:07)
[2018-05-04] MEDS: NYSTATIN SUSP 5 ML CUP PO ×4 (08:07→21:46)
[2018-05-04] MEDS: FLUDROCORTISONE 0.1 MG TAB GTB (08:08)
[2018-05-04] MEDS: COLLAGENASE 5 GM (UD JAR) TOP (08:08)
[2018-05-04] MEDS: ASCORBIC ACID 500 MG TAB GTB (08:08)
[2018-05-04] MEDS: DOCUSATE SODIUM 100 MG CAP PO ×2 (08:08→22:46)
[2018-05-04] MEDS: AMIODARONE 200 MG TAB PO (09:00)
[2018-05-04] MEDS: SODIUM HYPOCHLORITE (1/40) 1 APPLIC BTL IRR (09:09)
[2018-05-04] MEDS ORDERED: VANCOMYCIN 1.25 GM in SOD CHLORIDE 0.9% 250 ML IVPB (14:00)
[2018-05-04] MEDS ORDERED: CASPOFUNGIN 35 MG in SOD CHLORIDE 0.9% 250 ML IVPB (16:00)
[2018-05-04 16:11] LABS: CREATININE, RANDOM URINE 28 mg/dL (20-320); MICROALBUMIN 1.8 mg/dL; MICROALBUMIN/CREATININE RATIO 64 (<30)
[2018-05-04] MEDS: CASPOFUNGIN 70 MG in SOD CHLORIDE 0.9% 250 ML IVPB (16:54)
[2018-05-04] MEDS ORDERED: COLISTIMETHATE IVPB (17:00)
[2018-05-04] MEDS ORDERED: SOD CHLORIDE 0.9% IVPB (17:00)
[2018-05-04] MEDS: COLISTIMETHATE 100 MG in SOD CHLORIDE 0.9% 100 ML IVPB (18:00)
[2018-05-04] MEDS: ATORVASTATIN 10 MG TAB GTB (21:46)
[2018-05-04] MEDS: ZYVOX 600 MG TAB PO (21:46)
[2018-05-05] MEDS: VASOPRESSIN 60 UNIT in DEXTROSE 5% 57 ML IV ×2 (02:57→15:30)
[2018-05-05] MEDS: HYDROmorphONE 1 MG/ML SYG IV ×3 (03:41→23:15)
[2018-05-05 04:57] LABS: ADD MAN DIFF? NO
[2018-05-05 05:00] LABS: WHITE BLOOD COUNT 20.8 10^3/ul (4.8-10.8)
[2018-05-05 05:00] LABS: BASOPHILS % 0.1 % (0.0-2.0); EOSINOPHILS # 0.1 10^3/ul (0.0-0.5); EOSINOPHILS % 0.6 % (0.0-7.0); HEMATOCRIT 28.5 % (42.0-52.0); HEMOGLOBIN 9.2 g/dl (14.0-18.0); LYMPHOCYTES # 1.6 10^3/ul (0.8-2.9); LYMPHOCYTES % 7.9 % (15.0-51.0); MEAN CORPUSCULAR HEMOGLOBIN 31.5 pg (29.0-33.0); MEAN CORPUSCULAR HGB CONC 32.3 g/dl (32.0-37.0); MEAN CORPUSCULAR VOLUME 97.6 fl (82.0-101.0); MEAN PLATELET VOLUME 11.2 fl (7.4-10.4); MONOCYTE # 0.5 10^3/ul (0.3-0.9); MONOCYTES % 2.3 % (0.0-11.0); NEUTROPHIL # 17.9 10^3/ul (1.6-7.5); NEUTROPHILS % 85.8 % (39.0-77.0); NUCLEATED RED BLOOD CELLS% 0.1 /100WBC (0.0-0.0); PLATELET COUNT 121 10^3/UL (140-415); RED BLOOD COUNT 2.92 10^6/ul (4.70-6.10); RED CELL DISTRIBUTION WIDTH 17.8 % (11.5-14.5)
[2018-05-05 05:22] LABS: ANION GAP 10 (8-16); BLOOD UREA NITROGEN 86 mg/dl (7-20); CALCIUM 7.2 mg/dl (8.4-10.2); CARBON DIOXIDE 20 mmol/L (21-31); CHLORIDE 116 mmol/L (97-110); CREATININE 2.33 mg/dl (0.61-1.24); GLUCOSE 94 mg/dl (70-220); MAGNESIUM 1.9 mg/dl (1.7-2.5); PHOSPHORUS 4.7 mg/dl (2.5-4.9); SODIUM 143 mmol/L (135-144)
[2018-05-05] MEDS: HYDROCORTISONE 100 MG INJ IV ×2 (05:39→19:00)
[2018-05-05] MEDS: PANTOPRAZOLE 40 MG INJ IV (05:39)
[2018-05-05] MEDS: LEVOTHYROXINE 100 MCG VIAL IV (05:39)
[2018-05-05 05:46] LABS: POTASSIUM 2.7 mmol/L (3.5-5.1)
[2018-05-05] MEDS: PHENYLephrine 80 MG in DEXTROSE 5% 492 ML IV (06:01)
[2018-05-05] MEDS: POTASSIUM CHLORIDE 50 ML IVPB ×4 (06:29→10:00)
[2018-05-05] MEDS ORDERED: POTASSIUM CHLORIDE 50 ML IVPB (06:30)
[2018-05-05] MEDS: NYSTATIN SUSP 5 ML CUP PO ×4 (08:13→20:49)
[2018-05-05] MEDS: COLLAGENASE 5 GM (UD JAR) TOP (08:13)
[2018-05-05] MEDS: POTASSIUM CHLORIDE 20 MEQ POWDER FOR ORAL SOLN JT (08:15)
[2018-05-05] MEDS: ASCORBIC ACID 500 MG TAB GTB (08:15)
[2018-05-05] MEDS: ZYVOX 600 MG TAB PO ×2 (08:16→20:49)
[2018-05-05] MEDS: AMIODARONE 200 MG TAB PO (08:16)
[2018-05-05] MEDS: SODIUM HYPOCHLORITE (1/40) 1 APPLIC BTL IRR (09:00)
[2018-05-05] MEDS: INSULIN ASPART [NOVOLOG] 3 ML PEN SC ×4 (09:00→20:49)
[2018-05-05] MEDS: DOCUSATE SODIUM 100 MG CAP PO ×2 (11:30→23:15)
[2018-05-05] MEDS: FLUDROCORTISONE 0.1 MG TAB GTB (12:13)
[2018-05-05] MEDS: MUPIROCIN 2% 22 GM OINT TOP ×2 (12:13→20:49)
[2018-05-05 14:04] LABS: ANION GAP 11 (8-16); BLOOD UREA NITROGEN 83 mg/dl (7-20); CALCIUM 7.4 mg/dl (8.4-10.2); CARBON DIOXIDE 19 mmol/L (21-31); CHLORIDE 117 mmol/L (97-110); CREATININE 2.26 mg/dl (0.61-1.24); GLUCOSE 152 mg/dl (70-220); POTASSIUM 4.1 mmol/L (3.5-5.1); SODIUM 143 mmol/L (135-144)
[2018-05-05] MEDS: LIDOCAINE 1% (MPF) 5 ML VIAL SC ×2 (14:20→17:00)
[2018-05-05] MEDS: COLISTIMETHATE 100 MG in SOD CHLORIDE 0.9% 100 ML IVPB (19:00)
[2018-05-05] MEDS: CASPOFUNGIN 50 MG in SOD CHLORIDE 0.9% 250 ML IVPB (19:00)
[2018-05-05] MEDS: SOD CHLORIDE 0.9% 1,000 ML IV (19:06)
[2018-05-05] MEDS: ATORVASTATIN 10 MG TAB GTB (20:49)
[2018-05-06] MEDS: SOD CHLORIDE 0.9% 1,000 ML IV (01:16)
[2018-05-06] MEDS: PHENYLephrine 80 MG in DEXTROSE 5% 492 ML IV (01:18)
[2018-05-06] MEDS: VASOPRESSIN 60 UNIT in DEXTROSE 5% 57 ML IV ×2 (03:30→14:50)
[2018-05-06] MEDS: HYDROmorphONE 1 MG/ML SYG IV ×2 (03:47→11:31)
[2018-05-06 04:57] LABS: ADD MAN DIFF? NO
[2018-05-06 05:16] LABS: BASOPHILS % 0.1 % (0.0-2.0); HEMATOCRIT 24.6 % (42.0-52.0); HEMOGLOBIN 7.9 g/dl (14.0-18.0); LYMPHOCYTES # 1.3 10^3/ul (0.8-2.9); LYMPHOCYTES % 8.2 % (15.0-51.0); MEAN CORPUSCULAR HGB CONC 32.1 g/dl (32.0-37.0); MEAN CORPUSCULAR VOLUME 99.6 fl (82.0-101.0); MEAN PLATELET VOLUME 11.6 fl (7.4-10.4); MONOCYTE # 0.3 10^3/ul (0.3-0.9); MONOCYTES % 1.8 % (0.0-11.0); NEUTROPHIL # 14.1 10^3/ul (1.6-7.5); NEUTROPHILS % 86.3 % (39.0-77.0); PLATELET COUNT 102 10^3/UL (140-415); RED BLOOD COUNT 2.47 10^6/ul (4.70-6.10); RED CELL DISTRIBUTION WIDTH 17.7 % (11.5-14.5)
[2018-05-06 05:16] LABS: WHITE BLOOD COUNT 16.3 10^3/ul (4.8-10.8)
[2018-05-06] MEDS: LEVOTHYROXINE 100 MCG VIAL IV (05:30)
[2018-05-06] MEDS: HYDROCORTISONE 100 MG INJ IV ×2 (05:30→16:37)
[2018-05-06] MEDS: PANTOPRAZOLE 40 MG INJ IV (05:30)
[2018-05-06 05:41] LABS: ANION GAP 9 (8-16); BLOOD UREA NITROGEN 77 mg/dl (7-20); CALCIUM 7.5 mg/dl (8.4-10.2); CARBON DIOXIDE 19 mmol/L (21-31); CHLORIDE 118 mmol/L (97-110); CREATININE 2.19 mg/dl (0.61-1.24); GLUCOSE 128 mg/dl (70-220); MAGNESIUM 1.7 mg/dl (1.7-2.5); PHOSPHORUS 3.8 mg/dl (2.5-4.9); POTASSIUM 4.1 mmol/L (3.5-5.1); SODIUM 142 mmol/L (135-144)
[2018-05-06] MEDS: AMIODARONE 200 MG TAB PO (08:57)
[2018-05-06] MEDS: ASCORBIC ACID 500 MG TAB GTB (08:57)
[2018-05-06] MEDS: MUPIROCIN 2% 22 GM OINT TOP (08:57)
[2018-05-06] MEDS: NYSTATIN SUSP 5 ML CUP PO ×4 (08:57→21:43)
[2018-05-06] MEDS: COLLAGENASE 5 GM (UD JAR) TOP (08:57)
[2018-05-06] MEDS: ZYVOX 600 MG TAB PO ×2 (08:57→21:43)
[2018-05-06] MEDS: FLUDROCORTISONE 0.1 MG TAB GTB (08:58)
[2018-05-06] MEDS: SODIUM HYPOCHLORITE (1/40) 1 APPLIC BTL IRR (08:58)
[2018-05-06] MEDS: INSULIN ASPART [NOVOLOG] 3 ML PEN SC ×3 (09:00→16:45)
[2018-05-06] MEDS: DOCUSATE SODIUM 100 MG CAP PO ×2 (11:30→23:30)
[2018-05-06] MEDS: LORAZEPAM 2 MG INJ IV (13:01)
[2018-05-06] MEDS: MIDODRINE 5 MG TAB GTB ×2 (13:01→16:38)
[2018-05-06] MEDS: BALSAM PERU/CASTOR OIL 60 GM TUBE TOP (14:16)
[2018-05-06] MEDS: CASPOFUNGIN 50 MG in SOD CHLORIDE 0.9% 250 ML IVPB (15:56)
[2018-05-06] MEDS: COLISTIMETHATE 200 MG in SOD CHLORIDE 0.9% 100 ML IVPB (17:23)
[2018-05-06] MEDS: ATORVASTATIN 10 MG TAB GTB (21:43)
[2018-05-07] MEDS: MUPIROCIN 2% 22 GM OINT TOP ×3 (00:23→22:16)
[2018-05-07] MEDS: INSULIN ASPART [NOVOLOG] 3 ML PEN SC ×5 (00:23→22:14)
[2018-05-07] MEDS: HYDROCORTISONE 100 MG INJ IV ×2 (04:48→16:48)
[2018-05-07] MEDS: PANTOPRAZOLE 40 MG INJ IV (05:20)
[2018-05-07] MEDS: LEVOTHYROXINE 100 MCG VIAL IV (05:26)
[2018-05-07] MEDS: SOD CHLORIDE 0.9% 1,000 ML IV (05:33)
[2018-05-07 07:31] LABS: ADD MAN DIFF? NO
[2018-05-07 07:36] LABS: WHITE BLOOD COUNT 12.8 10^3/ul (4.8-10.8)
[2018-05-07 07:36] LABS: EOSINOPHILS # 0.2 10^3/ul (0.0-0.5); EOSINOPHILS % 1.4 % (0.0-7.0); HEMATOCRIT 24.1 % (42.0-52.0); HEMOGLOBIN 7.7 g/dl (14.0-18.0); LYMPHOCYTES % 7.7 % (15.0-51.0); MEAN PLATELET VOLUME 11.5 fl (7.4-10.4); MONOCYTE # 0.4 10^3/ul (0.3-0.9); MONOCYTES % 3.2 % (0.0-11.0); NEUTROPHIL # 10.8 10^3/ul (1.6-7.5); NEUTROPHILS % 84.7 % (39.0-77.0); PLATELET COUNT 111 10^3/UL (140-415); RED BLOOD COUNT 2.41 10^6/ul (4.70-6.10); RED CELL DISTRIBUTION WIDTH 17.2 % (11.5-14.5)
[2018-05-07 08:03] LABS: ANION GAP 9 (8-16); BLOOD UREA NITROGEN 70 mg/dl (7-20); CALCIUM 8.1 mg/dl (8.4-10.2); CARBON DIOXIDE 18 mmol/L (21-31); CHLORIDE 119 mmol/L (97-110); CREATININE 2.22 mg/dl (0.61-1.24); GLUCOSE 92 mg/dl (70-220); MAGNESIUM 1.5 mg/dl (1.7-2.5); PHOSPHORUS 3.7 mg/dl (2.5-4.9); POTASSIUM 3.4 mmol/L (3.5-5.1); SODIUM 143 mmol/L (135-144)
[2018-05-07] MEDS: NYSTATIN SUSP 5 ML CUP PO ×4 (09:18→22:16)
[2018-05-07] MEDS: MIDODRINE 5 MG TAB GTB ×3 (09:20→16:52)
[2018-05-07] MEDS: ASCORBIC ACID 500 MG TAB GTB (09:21)
[2018-05-07] MEDS: AMIODARONE 200 MG TAB PO (09:21)
[2018-05-07] MEDS: COLLAGENASE 5 GM (UD JAR) TOP (09:21)
[2018-05-07] MEDS: ZYVOX 600 MG TAB PO ×2 (09:21→22:16)
[2018-05-07] MEDS: SODIUM HYPOCHLORITE (1/40) 1 APPLIC BTL IRR (09:22)
[2018-05-07] MEDS: BALSAM PERU/CASTOR OIL 60 GM TUBE TOP (09:22)
[2018-05-07] MEDS: FUROSEMIDE 40 MG INJ IV (09:22)
[2018-05-07] MEDS: DOCUSATE SODIUM 100 MG CAP PO (12:33)
[2018-05-07] MEDS: POTASSIUM CHLORIDE 20 MEQ POWDER FOR ORAL SOLN GTB (16:46)
[2018-05-07] MEDS: CASPOFUNGIN 50 MG in SOD CHLORIDE 0.9% 250 ML IVPB (16:46)
[2018-05-07] MEDS: FLUDROCORTISONE 0.1 MG TAB GTB (16:46)
[2018-05-07] MEDS: MAGNESIUM SULFATE 1 GM/D5W 100 ML IVPB (18:13)
[2018-05-07] MEDS: ATORVASTATIN 10 MG TAB GTB (22:16)
[2018-05-07] MEDS ORDERED: DOCUSATE SODIUM 10 MG/ML (10ML CUP) GTB (22:30)
[2018-05-08] MEDS: HYDROCORTISONE 100 MG INJ IV ×2 (05:55→16:56)
[2018-05-08] MEDS: LEVOTHYROXINE 100 MCG VIAL IV (05:58)
[2018-05-08] MEDS: PANTOPRAZOLE 40 MG INJ IV (05:59)
[2018-05-08] MEDS: COLISTIMETHATE 100 MG in SOD CHLORIDE 0.9% 100 ML IVPB (06:55)
[2018-05-08 07:34] LABS: ADD MAN DIFF? NO
[2018-05-08 07:40] LABS: BASOPHILS % 0.1 % (0.0-2.0); EOSINOPHILS # 0.3 10^3/ul (0.0-0.5); HEMATOCRIT 22.9 % (42.0-52.0); HEMOGLOBIN 7.4 g/dl (14.0-18.0); LYMPHOCYTES % 7.9 % (15.0-51.0); MEAN CORPUSCULAR HEMOGLOBIN 32.3 pg (29.0-33.0); MEAN CORPUSCULAR HGB CONC 32.3 g/dl (32.0-37.0); MEAN PLATELET VOLUME 11.4 fl (7.4-10.4); MONOCYTE # 0.5 10^3/ul (0.3-0.9); MONOCYTES % 3.8 % (0.0-11.0); NEUTROPHIL # 10.5 10^3/ul (1.6-7.5); NEUTROPHILS % 83.9 % (39.0-77.0); PLATELET COUNT 129 10^3/UL (140-415); RED BLOOD COUNT 2.29 10^6/ul (4.70-6.10); RED CELL DISTRIBUTION WIDTH 17.5 % (11.5-14.5)
[2018-05-08 07:40] LABS: WHITE BLOOD COUNT 12.5 10^3/ul (4.8-10.8)
[2018-05-08 08:33] LABS: ANION GAP 11 (8-16); BLOOD UREA NITROGEN 66 mg/dl (7-20); CALCIUM 8.1 mg/dl (8.4-10.2); CARBON DIOXIDE 18 mmol/L (21-31); CHLORIDE 117 mmol/L (97-110); CREATININE 2.12 mg/dl (0.61-1.24); GLUCOSE 110 mg/dl (70-220); MAGNESIUM 1.6 mg/dl (1.7-2.5); POTASSIUM 3.6 mmol/L (3.5-5.1); SODIUM 142 mmol/L (135-144)
[2018-05-08] MEDS: BALSAM PERU/CASTOR OIL 60 GM TUBE TOP (09:00)
[2018-05-08] MEDS: ACETAMINOPHEN 650MG/20.3ML CUP GTB (09:56)
[2018-05-08] MEDS: COLLAGENASE 5 GM (UD JAR) TOP (09:57)
[2018-05-08] MEDS: NYSTATIN SUSP 5 ML CUP PO ×4 (09:57→21:21)
[2018-05-08] MEDS: ASCORBIC ACID 500 MG TAB GTB (09:58)
[2018-05-08] MEDS: ZYVOX 600 MG TAB PO ×2 (09:58→21:21)
[2018-05-08] MEDS: FLUDROCORTISONE 0.1 MG TAB GTB (09:58)
[2018-05-08] MEDS: FUROSEMIDE 40 MG INJ IV (09:58)
[2018-05-08] MEDS: DOCUSATE SODIUM 10 MG/ML (10ML CUP) GTB ×2 (09:58→21:21)
[2018-05-08] MEDS: SODIUM HYPOCHLORITE (1/40) 1 APPLIC BTL IRR (09:59)
[2018-05-08] MEDS: MUPIROCIN 2% 22 GM OINT TOP ×2 (09:59→21:27)
[2018-05-08] MEDS: AMIODARONE 200 MG TAB PO (09:59)
[2018-05-08] MEDS: INSULIN ASPART [NOVOLOG] 3 ML PEN SC ×4 (10:00→23:38)
[2018-05-08] MEDS: MIDODRINE 5 MG TAB GTB ×3 (10:12→17:49)
[2018-05-08] MEDS: MAGNESIUM SULFATE 1 GM/D5W 100 ML IVPB (17:49)
[2018-05-08] MEDS ORDERED: GLUCAGON 1 MG INJ IM (20:30)
[2018-05-08] MEDS ORDERED: GLUCOSE GEL 15 GRAM TUBE BUCCAL (20:30)
[2018-05-08] MEDS ORDERED: GLUCOSE GEL 15 GRAM TUBE PO ×2 (20:30)
[2018-05-08] MEDS ORDERED: DEXTROSE 50% 50 ML SYRINGE IV ×2 (20:30)
[2018-05-08] MEDS: ATORVASTATIN 10 MG TAB GTB (21:21)
[2018-05-09] MEDS: PANTOPRAZOLE 40 MG INJ IV (05:45)
[2018-05-09] MEDS: LEVOTHYROXINE 100 MCG VIAL IV (05:46)
[2018-05-09] MEDS: INSULIN ASPART [NOVOLOG] 3 ML PEN SC ×3 (05:46→17:24)
[2018-05-09] MEDS: HYDROCORTISONE 100 MG INJ IV ×2 (05:46→17:25)
[2018-05-09 07:05] LABS: ADD MAN DIFF? NO
[2018-05-09 07:10] LABS: WHITE BLOOD COUNT 12.7 10^3/ul (4.8-10.8)
[2018-05-09 07:10] LABS: BASOPHILS % 0.1 % (0.0-2.0); EOSINOPHILS # 0.1 10^3/ul (0.0-0.5); EOSINOPHILS % 0.8 % (0.0-7.0); HEMATOCRIT 24.4 % (42.0-52.0); HEMOGLOBIN 7.6 g/dl (14.0-18.0); LYMPHOCYTES # 1.4 10^3/ul (0.8-2.9); LYMPHOCYTES % 10.9 % (15.0-51.0); MEAN CORPUSCULAR HEMOGLOBIN 31.8 pg (29.0-33.0); MEAN CORPUSCULAR HGB CONC 31.1 g/dl (32.0-37.0); MEAN CORPUSCULAR VOLUME 102.1 fl (82.0-101.0); MONOCYTE # 0.6 10^3/ul (0.3-0.9); MONOCYTES % 4.9 % (0.0-11.0); NEUTROPHIL # 10.4 10^3/ul (1.6-7.5); NEUTROPHILS % 81.8 % (39.0-77.0); PLATELET COUNT 131 10^3/UL (140-415); RED BLOOD COUNT 2.39 10^6/ul (4.70-6.10); RED CELL DISTRIBUTION WIDTH 17.3 % (11.5-14.5)
[2018-05-09 07:37] LABS: ANION GAP 9 (8-16); BLOOD UREA NITROGEN 61 mg/dl (7-20); CALCIUM 8.2 mg/dl (8.4-10.2); CARBON DIOXIDE 19 mmol/L (21-31); CHLORIDE 119 mmol/L (97-110); CREATININE 2.08 mg/dl (0.61-1.24); GLUCOSE 110 mg/dl (70-220); POTASSIUM 3.4 mmol/L (3.5-5.1); SODIUM 144 mmol/L (135-144)
[2018-05-09 07:40] LABS: MAGNESIUM 1.7 mg/dl (1.7-2.5)
[2018-05-09 07:40] LABS: PHOSPHORUS 4.5 mg/dl (2.5-4.9)
[2018-05-09] MEDS: FLUDROCORTISONE 0.1 MG TAB GTB (08:48)
[2018-05-09] MEDS: NYSTATIN SUSP 5 ML CUP PO ×3 (08:48→17:24)
[2018-05-09] MEDS: ZYVOX 600 MG TAB PO (08:48)
[2018-05-09] MEDS: COLLAGENASE 5 GM (UD JAR) TOP (08:48)
[2018-05-09] MEDS: DOCUSATE SODIUM 10 MG/ML (10ML CUP) GTB (08:48)
[2018-05-09] MEDS: ASCORBIC ACID 500 MG TAB GTB (08:48)
[2018-05-09] MEDS: AMIODARONE 200 MG TAB PO (08:48)
[2018-05-09] MEDS: FUROSEMIDE 40 MG INJ IV (08:49)
[2018-05-09] MEDS: SODIUM HYPOCHLORITE (1/40) 1 APPLIC BTL IRR ×2 (08:49)
[2018-05-09] MEDS: MUPIROCIN 2% 22 GM OINT TOP (08:50)
[2018-05-09] MEDS: BALSAM PERU/CASTOR OIL 60 GM TUBE TOP (08:51)
[2018-05-09] MEDS: MIDODRINE 5 MG TAB GTB ×3 (08:54→17:25)
[2018-05-09] MEDS: HYDROmorphONE 1 MG/ML SYG IV (12:31)
[2018-05-09] MEDS: ONDANSETRON 4 MG INJ IV (15:31)
[2018-05-09] MEDS: BARIUM SULF 2% 450 ML BTL (BERRY SMOOTHIE) PO (16:00)
[2018-05-09] MEDS: COLISTIMETHATE 100 MG in SOD CHLORIDE 0.9% 100 ML IVPB (17:24)
[2018-05-09] MEDS: DEXTROSE 5%-0.45% NACL 1,000 ML IV (17:25)
[2018-05-09 22:52] LABS: OCCULT BLOOD STOOL NEGATIVE (NEGATIVE)
[2018-05-10] MEDS: ATORVASTATIN 10 MG TAB GTB ×3 (00:14→20:34)
[2018-05-10] MEDS: NYSTATIN SUSP 5 ML CUP PO ×5 (00:14→20:34)
[2018-05-10] MEDS: ZYVOX 600 MG TAB PO ×4 (00:14→20:34)
[2018-05-10] MEDS: MUPIROCIN 2% 22 GM OINT TOP ×3 (00:14→20:30)
[2018-05-10] MEDS: DOCUSATE SODIUM 10 MG/ML (10ML CUP) GTB ×3 (00:24→20:34)
[2018-05-10] MEDS: LINEZOLID 600 MG/D5W (PMX) 300 ML IVPB ×3 (00:46→20:29)
[2018-05-10] MEDS: PANTOPRAZOLE 40 MG INJ IV (05:38)
[2018-05-10] MEDS: LEVOTHYROXINE 100 MCG VIAL IV (05:38)
[2018-05-10] MEDS: HYDROCORTISONE 100 MG INJ IV ×2 (05:38→17:29)
[2018-05-10] MEDS: INSULIN ASPART [NOVOLOG] 3 ML PEN SC ×4 (05:39→17:32)
[2018-05-10 06:28] LABS: ADD MAN DIFF? NO
[2018-05-10 06:39] LABS: BASOPHILS % 0.1 % (0.0-2.0); EOSINOPHILS % 0.3 % (0.0-7.0); HEMOGLOBIN 7.4 g/dl (14.0-18.0); LYMPHOCYTES # 1.3 10^3/ul (0.8-2.9); LYMPHOCYTES % 11.3 % (15.0-51.0); MEAN CORPUSCULAR HEMOGLOBIN 32.6 pg (29.0-33.0); MEAN CORPUSCULAR HGB CONC 32.2 g/dl (32.0-37.0); MEAN CORPUSCULAR VOLUME 101.3 fl (82.0-101.0); MEAN PLATELET VOLUME 10.8 fl (7.4-10.4); MONOCYTE # 0.6 10^3/ul (0.3-0.9); NEUTROPHIL # 9.4 10^3/ul (1.6-7.5); NEUTROPHILS % 81.9 % (39.0-77.0); PLATELET COUNT 134 10^3/UL (140-415); RED BLOOD COUNT 2.27 10^6/ul (4.70-6.10); RED CELL DISTRIBUTION WIDTH 17.3 % (11.5-14.5)
[2018-05-10 06:39] LABS: WHITE BLOOD COUNT 11.5 10^3/ul (4.8-10.8)
[2018-05-10 07:32] LABS: ANION GAP 10 (8-16); BLOOD UREA NITROGEN 59 mg/dl (7-20); CALCIUM 8.4 mg/dl (8.4-10.2); CARBON DIOXIDE 19 mmol/L (21-31); CHLORIDE 115 mmol/L (97-110); CREATININE 2.09 mg/dl (0.61-1.24); GLUCOSE 108 mg/dl (70-220); POTASSIUM 3.1 mmol/L (3.5-5.1); SODIUM 141 mmol/L (135-144)
[2018-05-10] MEDS: DEXTROSE 5%-0.45% NACL 1,000 ML IV ×2 (08:10→13:38)
[2018-05-10] MEDS: FUROSEMIDE 40 MG INJ IV (08:53)
[2018-05-10] MEDS: COLLAGENASE 5 GM (UD JAR) TOP (08:54)
[2018-05-10] MEDS: BALSAM PERU/CASTOR OIL 60 GM TUBE TOP (08:54)
[2018-05-10] MEDS: SODIUM HYPOCHLORITE (1/40) 1 APPLIC BTL IRR ×2 (08:54)
[2018-05-10] MEDS: MIDODRINE 5 MG TAB GTB ×3 (09:00→17:30)
[2018-05-10] MEDS: ASCORBIC ACID 500 MG TAB GTB (09:00)
[2018-05-10] MEDS: AMIODARONE 200 MG TAB PO (09:00)
[2018-05-10] MEDS: FLUDROCORTISONE 0.1 MG TAB GTB (09:00)
[2018-05-10] MEDS: POTASSIUM CHLORIDE 100 ML IVPB ×2 (12:56→14:57)
[2018-05-10 18:30] LABS: ALANINE AMINOTRANSFERASE 38 IU/L (13-69); ALBUMIN/GLOBULIN RATIO 0.64; ASPARTATE AMINO TRANSFERASE 16 IU/L (15-46); BILIRUBIN,INDIRECT 0.3 mg/dl (0-1.1); BILIRUBIN,TOTAL 0.3 mg/dl (0.2-1.3); GLUCOSE 91 mg/dl (70-220); POTASSIUM 3.6 mmol/L (3.5-5.1); TOTAL PROTEIN 5.1 g/dl (6.1-8.1)
[2018-05-10 18:51] LABS: ALKALINE PHOSPHATASE 93 IU/L (42-121); ANION GAP 13 (8-16); BLOOD UREA NITROGEN 56 mg/dl (7-20); CALCIUM 8.3 mg/dl (8.4-10.2); CARBON DIOXIDE 19 mmol/L (21-31); CHLORIDE 114 mmol/L (97-110); CREATININE 2.17 mg/dl (0.61-1.24); SODIUM 142 mmol/L (135-144)
[2018-05-10 20:50] LABS: IMMEDIATE SPIN CROSSMATCH 1 3
[2018-05-11] MEDS: HYDROCORTISONE 100 MG INJ IV ×2 (05:11→16:35)
[2018-05-11] MEDS: PANTOPRAZOLE 40 MG INJ IV (05:11)
[2018-05-11] MEDS: COLISTIMETHATE 100 MG in SOD CHLORIDE 0.9% 100 ML IVPB (05:11)
[2018-05-11] MEDS: LEVOTHYROXINE 100 MCG VIAL IV (05:11)
[2018-05-11] MEDS: INSULIN ASPART [NOVOLOG] 3 ML PEN SC ×4 (05:11→18:00)
[2018-05-11 07:26] LABS: ADD MAN DIFF? NO
[2018-05-11 07:33] LABS: WHITE BLOOD COUNT 13.6 10^3/ul (4.8-10.8)
[2018-05-11 07:33] LABS: BASOPHILS % 0.1 % (0.0-2.0); HEMATOCRIT 31.9 % (42.0-52.0); HEMOGLOBIN 10.3 g/dl (14.0-18.0); LYMPHOCYTES # 0.8 10^3/ul (0.8-2.9); LYMPHOCYTES % 5.9 % (15.0-51.0); MEAN CORPUSCULAR HEMOGLOBIN 30.9 pg (29.0-33.0); MEAN CORPUSCULAR HGB CONC 32.3 g/dl (32.0-37.0); MEAN CORPUSCULAR VOLUME 95.8 fl (82.0-101.0); MEAN PLATELET VOLUME 10.5 fl (7.4-10.4); MONOCYTE # 0.5 10^3/ul (0.3-0.9); MONOCYTES % 3.3 % (0.0-11.0); NEUTROPHIL # 12.2 10^3/ul (1.6-7.5); NEUTROPHILS % 89.5 % (39.0-77.0); PLATELET COUNT 122 10^3/UL (140-415); RED BLOOD COUNT 3.33 10^6/ul (4.70-6.10); RED CELL DISTRIBUTION WIDTH 17.4 % (11.5-14.5)
[2018-05-11 07:53] LABS: ANION GAP 9 (8-16); BLOOD UREA NITROGEN 53 mg/dl (7-20); CALCIUM 8.4 mg/dl (8.4-10.2); CARBON DIOXIDE 20 mmol/L (21-31); CHLORIDE 115 mmol/L (97-110); GLUCOSE 115 mg/dl (70-220); POTASSIUM 3.5 mmol/L (3.5-5.1); SODIUM 140 mmol/L (135-144)
[2018-05-11] MEDS: ASCORBIC ACID 500 MG TAB GTB (08:23)
[2018-05-11] MEDS: MIDODRINE 5 MG TAB GTB ×3 (08:23→16:36)
[2018-05-11] MEDS: NYSTATIN SUSP 5 ML CUP PO ×4 (08:23→21:16)
[2018-05-11] MEDS: AMIODARONE 200 MG TAB PO (08:23)
[2018-05-11] MEDS: DOCUSATE SODIUM 10 MG/ML (10ML CUP) GTB ×2 (08:23→21:16)
[2018-05-11] MEDS: FLUDROCORTISONE 0.1 MG TAB GTB (08:24)
[2018-05-11] MEDS: COLLAGENASE 5 GM (UD JAR) TOP (08:24)
[2018-05-11] MEDS: ZYVOX 600 MG TAB PO ×2 (08:24→21:16)
[2018-05-11] MEDS: LINEZOLID 600 MG/D5W (PMX) 300 ML IVPB ×2 (08:25→21:19)
[2018-05-11] MEDS: SODIUM HYPOCHLORITE (1/40) 1 APPLIC BTL IRR ×2 (08:27→08:29)
[2018-05-11] MEDS: MUPIROCIN 2% 22 GM OINT TOP ×2 (08:27→21:17)
[2018-05-11] MEDS: BALSAM PERU/CASTOR OIL 60 GM TUBE TOP (12:15)
[2018-05-11] MEDS: DEXTROSE 5%-0.45% NACL 1,000 ML IV (14:09)
[2018-05-11] MEDS: ATORVASTATIN 10 MG TAB GTB (21:16)
[2018-05-12] MEDS: INSULIN ASPART [NOVOLOG] 3 ML PEN SC ×4 (05:35→17:28)
[2018-05-12] MEDS: HYDROCORTISONE 100 MG INJ IV ×2 (05:36→17:26)
[2018-05-12] MEDS: DEXTROSE 5%-0.45% NACL 1,000 ML IV (05:36)
[2018-05-12] MEDS: PANTOPRAZOLE 40 MG INJ IV (05:36)
[2018-05-12] MEDS: LEVOTHYROXINE 100 MCG VIAL IV (05:36)
[2018-05-12 09:05] LABS: ADD MAN DIFF? NO
[2018-05-12 09:18] LABS: WHITE BLOOD COUNT 15.1 10^3/ul (4.8-10.8)
[2018-05-12 09:18] LABS: BASOPHILS % 0.1 % (0.0-2.0); EOSINOPHILS % 0.1 % (0.0-7.0); HEMOGLOBIN 10.7 g/dl (14.0-18.0); LYMPHOCYTES # 0.7 10^3/ul (0.8-2.9); LYMPHOCYTES % 4.5 % (15.0-51.0); MEAN CORPUSCULAR HEMOGLOBIN 32.3 pg (29.0-33.0); MEAN CORPUSCULAR HGB CONC 33.4 g/dl (32.0-37.0); MEAN CORPUSCULAR VOLUME 96.7 fl (82.0-101.0); MEAN PLATELET VOLUME 10.4 fl (7.4-10.4); MONOCYTE # 0.5 10^3/ul (0.3-0.9); NEUTROPHIL # 13.8 10^3/ul (1.6-7.5); NEUTROPHILS % 91.4 % (39.0-77.0); PLATELET COUNT 117 10^3/UL (140-415); RED BLOOD COUNT 3.31 10^6/ul (4.70-6.10); RED CELL DISTRIBUTION WIDTH 17.2 % (11.5-14.5)
[2018-05-12 09:56] LABS: ANION GAP 8 (8-16); BLOOD UREA NITROGEN 49 mg/dl (7-20); CALCIUM 8.1 mg/dl (8.4-10.2); CARBON DIOXIDE 20 mmol/L (21-31); CHLORIDE 112 mmol/L (97-110); CREATININE 1.98 mg/dl (0.61-1.24); GLUCOSE 155 mg/dl (70-220); MAGNESIUM 1.2 mg/dl (1.7-2.5); PHOSPHORUS 4.3 mg/dl (2.5-4.9); POTASSIUM 3.1 mmol/L (3.5-5.1); SODIUM 137 mmol/L (135-144)
[2018-05-12] MEDS: DOCUSATE SODIUM 10 MG/ML (10ML CUP) GTB ×2 (10:02→22:41)
[2018-05-12] MEDS: ASCORBIC ACID 500 MG TAB GTB (10:02)
[2018-05-12] MEDS: FLUDROCORTISONE 0.1 MG TAB GTB (10:02)
[2018-05-12] MEDS: NYSTATIN SUSP 5 ML CUP PO ×4 (10:02→21:00)
[2018-05-12] MEDS: MIDODRINE 5 MG TAB GTB ×3 (10:03→17:27)
[2018-05-12] MEDS: ZYVOX 600 MG TAB PO ×2 (10:03→22:42)
[2018-05-12] MEDS: COLLAGENASE 5 GM (UD JAR) TOP (10:03)
[2018-05-12] MEDS: AMIODARONE 200 MG TAB PO (10:03)
[2018-05-12] MEDS: SODIUM HYPOCHLORITE (1/40) 1 APPLIC BTL IRR (10:04)
[2018-05-12] MEDS: MUPIROCIN 2% 22 GM OINT TOP ×2 (10:05→22:46)
[2018-05-12] MEDS: BALSAM PERU/CASTOR OIL 60 GM TUBE TOP (10:05)
[2018-05-12] MEDS: HYDROmorphONE 1 MG/ML SYG IV (13:47)
[2018-05-12] MEDS: MAGNESIUM SULFATE 2 GM/50 ML 50 ML IVPB (15:57)
[2018-05-12] MEDS: POTASSIUM CHLORIDE 100 ML IVPB ×2 (17:25→18:58)
[2018-05-12] MEDS: COLISTIMETHATE 100 MG in SOD CHLORIDE 0.9% 100 ML IVPB (18:29)
[2018-05-12] MEDS: ATORVASTATIN 10 MG TAB GTB (22:42)
[2018-05-13] MEDS: INSULIN ASPART [NOVOLOG] 3 ML PEN SC ×4 (00:40→17:52)
[2018-05-13] MEDS: DEXTROSE 5%-0.45% NACL 1,000 ML IV (03:49)
[2018-05-13] MEDS: LEVOTHYROXINE 100 MCG VIAL IV (06:00)
[2018-05-13] MEDS: HYDROCORTISONE 100 MG INJ IV ×2 (06:01→17:00)
[2018-05-13] MEDS: PANTOPRAZOLE 40 MG INJ IV (06:06)
[2018-05-13 06:44] LABS: ADD MAN DIFF? NO
[2018-05-13 06:47] LABS: BASOPHILS % 0.1 % (0.0-2.0); EOSINOPHILS % 0.2 % (0.0-7.0); HEMATOCRIT 30.4 % (42.0-52.0); LYMPHOCYTES # 1.7 10^3/ul (0.8-2.9); LYMPHOCYTES % 12.6 % (15.0-51.0); MEAN CORPUSCULAR HEMOGLOBIN 31.8 pg (29.0-33.0); MEAN CORPUSCULAR HGB CONC 32.9 g/dl (32.0-37.0); MEAN CORPUSCULAR VOLUME 96.8 fl (82.0-101.0); MEAN PLATELET VOLUME 10.3 fl (7.4-10.4); MONOCYTE # 0.7 10^3/ul (0.3-0.9); MONOCYTES % 5.5 % (0.0-11.0); NEUTROPHIL # 10.7 10^3/ul (1.6-7.5); NEUTROPHILS % 80.9 % (39.0-77.0); PLATELET COUNT 105 10^3/UL (140-415); RED BLOOD COUNT 3.14 10^6/ul (4.70-6.10); RED CELL DISTRIBUTION WIDTH 17.2 % (11.5-14.5)
[2018-05-13 06:47] LABS: WHITE BLOOD COUNT 13.2 10^3/ul (4.8-10.8)
[2018-05-13 07:34] LABS: ANION GAP 10 (8-16); BLOOD UREA NITROGEN 47 mg/dl (7-20); CALCIUM 8.1 mg/dl (8.4-10.2); CARBON DIOXIDE 19 mmol/L (21-31); CHLORIDE 114 mmol/L (97-110); GLUCOSE 112 mg/dl (70-220); MAGNESIUM 1.6 mg/dl (1.7-2.5); POTASSIUM 3.5 mmol/L (3.5-5.1); SODIUM 139 mmol/L (135-144)
[2018-05-13] MEDS: DOCUSATE SODIUM 10 MG/ML (10ML CUP) GTB ×2 (09:27→20:26)
[2018-05-13] MEDS: NYSTATIN SUSP 5 ML CUP PO ×4 (09:27→20:26)
[2018-05-13] MEDS: ZYVOX 600 MG TAB PO ×2 (09:29→20:26)
[2018-05-13] MEDS: COLLAGENASE 5 GM (UD JAR) TOP (09:29)
[2018-05-13] MEDS: FLUDROCORTISONE 0.1 MG TAB GTB (09:29)
[2018-05-13] MEDS: AMIODARONE 200 MG TAB PO (09:29)
[2018-05-13] MEDS: ASCORBIC ACID 500 MG TAB GTB (09:30)
[2018-05-13] MEDS: MAGNESIUM SULFATE 2 GM/50 ML 50 ML IVPB (09:31)
[2018-05-13] MEDS: SODIUM HYPOCHLORITE (1/40) 1 APPLIC BTL IRR (09:31)
[2018-05-13] MEDS: MUPIROCIN 2% 22 GM OINT TOP ×2 (09:32→20:26)
[2018-05-13] MEDS: MIDODRINE 5 MG TAB GTB ×3 (09:54→17:00)
[2018-05-13] MEDS: BALSAM PERU/CASTOR OIL 60 GM TUBE TOP (09:54)
[2018-05-13] MEDS: ATORVASTATIN 10 MG TAB GTB (20:26)
[2018-05-14] MEDS: LEVOTHYROXINE 100 MCG VIAL IV (05:09)
[2018-05-14] MEDS: COLISTIMETHATE 100 MG in SOD CHLORIDE 0.9% 100 ML IVPB (05:09)
[2018-05-14] MEDS: PANTOPRAZOLE 40 MG INJ IV (05:09)
[2018-05-14] MEDS: HYDROCORTISONE 100 MG INJ IV ×2 (05:12→16:12)
[2018-05-14] MEDS: INSULIN ASPART [NOVOLOG] 3 ML PEN SC ×4 (05:19→18:00)
[2018-05-14 07:25] LABS: ADD MAN DIFF? NO
[2018-05-14 07:29] LABS: WHITE BLOOD COUNT 14.3 10^3/ul (4.8-10.8)
[2018-05-14 07:29] LABS: ABNORMAL IP MESSAGE 1; EOSINOPHILS # 0.1 10^3/ul (0.0-0.5); EOSINOPHILS % 0.9 % (0.0-7.0); HEMATOCRIT 29.7 % (42.0-52.0); HEMOGLOBIN 9.8 g/dl (14.0-18.0); LYMPHOCYTES # 1.1 10^3/ul (0.8-2.9); LYMPHOCYTES % 7.7 % (15.0-51.0); MEAN CORPUSCULAR VOLUME 97.1 fl (82.0-101.0); MEAN PLATELET VOLUME 10.2 fl (7.4-10.4); MONOCYTE # 0.5 10^3/ul (0.3-0.9); MONOCYTES % 3.4 % (0.0-11.0); NEUTROPHIL # 12.5 10^3/ul (1.6-7.5); PLATELET COUNT 90 10^3/UL (140-415); POSITIVE DIFF @See below; RED BLOOD COUNT 3.06 10^6/ul (4.70-6.10); RED CELL DISTRIBUTION WIDTH 17.1 % (11.5-14.5)
[2018-05-14 07:55] LABS: ANION GAP 9 (5-13); BLOOD UREA NITROGEN 46 mg/dl (7-20); CALCIUM 8.3 mg/dl (8.4-10.2); CARBON DIOXIDE 18 mmol/L (21-31); CHLORIDE 111 mmol/L (97-110); GLUCOSE 105 mg/dl (70-220); MAGNESIUM 1.9 mg/dl (1.7-2.5); PHOSPHORUS 3.6 mg/dl (2.5-4.9); POTASSIUM 3.4 mmol/L (3.5-5.1); SODIUM 138 mmol/L (135-144)
[2018-05-14] MEDS: NYSTATIN SUSP 5 ML CUP PO ×4 (09:00→20:45)
[2018-05-14] MEDS: DOCUSATE SODIUM 10 MG/ML (10ML CUP) GTB ×2 (09:18→20:45)
[2018-05-14] MEDS: ASCORBIC ACID 500 MG TAB GTB (09:18)
[2018-05-14] MEDS: COLLAGENASE 5 GM (UD JAR) TOP (09:18)
[2018-05-14] MEDS: FLUDROCORTISONE 0.1 MG TAB GTB (09:18)
[2018-05-14] MEDS: AMIODARONE 200 MG TAB PO (09:18)
[2018-05-14] MEDS: MIDODRINE 5 MG TAB GTB ×3 (09:19→16:13)
[2018-05-14] MEDS: MUPIROCIN 2% 22 GM OINT TOP ×2 (09:19→20:46)
[2018-05-14] MEDS: SODIUM HYPOCHLORITE (1/40) 1 APPLIC BTL IRR (09:19)
[2018-05-14] MEDS: ZYVOX 600 MG TAB PO ×2 (09:19→20:45)
[2018-05-14] MEDS: BALSAM PERU/CASTOR OIL 60 GM TUBE TOP (09:20)
[2018-05-14] MEDS ORDERED: HEPARIN 5,000 UNIT/0.5 ML VIAL ×2 (12:39→20:36)
[2018-05-14] MEDS: HEPARIN SODIUM 5,000 UNIT/ML VIAL SC ×3 (12:46→20:58)
[2018-05-14] MEDS: LEVALBUTEROL (NEB) 1.25 MG/0.5 ML AMP HHN (15:09)
[2018-05-14] MEDS: POTASSIUM CHLORIDE 100 ML IVPB (16:12)
[2018-05-14] MEDS: ATORVASTATIN 10 MG TAB GTB (20:45)
[2018-05-15] MEDS ORDERED: HEPARIN 5,000 UNIT/0.5 ML VIAL ×3 (03:23→21:12)
[2018-05-15] MEDS: HYDROCORTISONE 100 MG INJ IV ×2 (04:09→17:16)
[2018-05-15] MEDS: PANTOPRAZOLE 40 MG INJ IV (05:02)
[2018-05-15] MEDS: LEVOTHYROXINE 100 MCG VIAL IV (05:03)
[2018-05-15] MEDS: HEPARIN SODIUM 5,000 UNIT/ML VIAL SC ×3 (05:06→21:46)
[2018-05-15] MEDS: INSULIN ASPART [NOVOLOG] 3 ML PEN SC ×4 (05:10→18:00)
[2018-05-15 06:42] LABS: ADD MAN DIFF? NO
[2018-05-15 06:51] LABS: WHITE BLOOD COUNT 13.2 10^3/ul (4.8-10.8)
[2018-05-15 06:51] LABS: ABNORMAL IP MESSAGE 1; BASOPHILS % 0.1 % (0.0-2.0); EOSINOPHILS # 0.1 10^3/ul (0.0-0.5); EOSINOPHILS % 0.5 % (0.0-7.0); HEMATOCRIT 28.8 % (42.0-52.0); HEMOGLOBIN 9.5 g/dl (14.0-18.0); LYMPHOCYTES # 0.8 10^3/ul (0.8-2.9); LYMPHOCYTES % 5.8 % (15.0-51.0); MEAN CORPUSCULAR HEMOGLOBIN 32.1 pg (29.0-33.0); MEAN CORPUSCULAR VOLUME 97.3 fl (82.0-101.0); MEAN PLATELET VOLUME 9.9 fl (7.4-10.4); MONOCYTE # 0.4 10^3/ul (0.3-0.9); MONOCYTES % 2.9 % (0.0-11.0); NEUTROPHIL # 11.9 10^3/ul (1.6-7.5); NEUTROPHILS % 89.7 % (39.0-77.0); PLATELET COUNT 73 10^3/UL (140-415); POSITIVE DIFF @See below; RED BLOOD COUNT 2.96 10^6/ul (4.70-6.10); RED CELL DISTRIBUTION WIDTH 16.8 % (11.5-14.5)
[2018-05-15 07:24] LABS: ANION GAP 8 (5-13); BLOOD UREA NITROGEN 47 mg/dl (7-20); CALCIUM 8.8 mg/dl (8.4-10.2); CARBON DIOXIDE 19 mmol/L (21-31); CHLORIDE 108 mmol/L (97-110); CREATININE 1.77 mg/dl (0.61-1.24); GLUCOSE 122 mg/dl (70-220); POTASSIUM 3.8 mmol/L (3.5-5.1); SODIUM 135 mmol/L (135-144)
[2018-05-15] MEDS: FLUDROCORTISONE 0.1 MG TAB GTB (09:12)
[2018-05-15] MEDS: ZYVOX 600 MG TAB PO ×2 (09:12→21:21)
[2018-05-15] MEDS: MIDODRINE 5 MG TAB GTB ×3 (09:13→17:13)
[2018-05-15] MEDS: ASCORBIC ACID 500 MG TAB GTB (09:13)
[2018-05-15] MEDS: DOCUSATE SODIUM 10 MG/ML (10ML CUP) GTB ×2 (09:13→21:21)
[2018-05-15] MEDS: AMIODARONE 200 MG TAB PO (09:13)
[2018-05-15] MEDS: NYSTATIN SUSP 5 ML CUP PO ×4 (09:13→21:21)
[2018-05-15] MEDS: BALSAM PERU/CASTOR OIL 60 GM TUBE TOP (09:14)
[2018-05-15] MEDS: COLLAGENASE 5 GM (UD JAR) TOP (09:14)
[2018-05-15] MEDS: MUPIROCIN 2% 22 GM OINT TOP ×2 (09:14→21:22)
[2018-05-15] MEDS: SODIUM HYPOCHLORITE (1/40) 1 APPLIC BTL IRR (09:47)
[2018-05-15] MEDS: ACETAMINOPHEN 650MG/20.3ML CUP GTB (17:12)
[2018-05-15] MEDS: COLISTIMETHATE 100 MG in SOD CHLORIDE 0.9% 100 ML IVPB (17:12)
[2018-05-15] MEDS: ATORVASTATIN 10 MG TAB GTB (21:21)
[2018-05-16] MEDS ORDERED: HEPARIN 5,000 UNIT/0.5 ML VIAL ×2 (03:51→14:13)
[2018-05-16] MEDS: HYDROCORTISONE 100 MG INJ IV ×2 (04:03→17:17)
[2018-05-16] MEDS: PANTOPRAZOLE 40 MG INJ IV (05:26)
[2018-05-16] MEDS: LEVOTHYROXINE 100 MCG VIAL IV (05:26)
[2018-05-16] MEDS: HEPARIN SODIUM 5,000 UNIT/ML VIAL SC ×2 (05:29→14:39)
[2018-05-16] MEDS: INSULIN ASPART [NOVOLOG] 3 ML PEN SC ×5 (05:39→23:54)
[2018-05-16 07:59] LABS: ADD MAN DIFF? NO
[2018-05-16 08:02] LABS: ABNORMAL IP MESSAGE 1; BASOPHILS % 0.1 % (0.0-2.0); EOSINOPHILS % 0.3 % (0.0-7.0); HEMATOCRIT 26.9 % (42.0-52.0); HEMOGLOBIN 8.9 g/dl (14.0-18.0); LYMPHOCYTES # 0.9 10^3/ul (0.8-2.9); LYMPHOCYTES % 7.3 % (15.0-51.0); MEAN CORPUSCULAR HEMOGLOBIN 32.5 pg (29.0-33.0); MEAN CORPUSCULAR HGB CONC 33.1 g/dl (32.0-37.0); MEAN CORPUSCULAR VOLUME 98.2 fl (82.0-101.0); MEAN PLATELET VOLUME 10.7 fl (7.4-10.4); MONOCYTE # 0.3 10^3/ul (0.3-0.9); MONOCYTES % 2.3 % (0.0-11.0); PLATELET COUNT 68 10^3/UL (140-415); POSITIVE DIFF @See below; RED BLOOD COUNT 2.74 10^6/ul (4.70-6.10); RED CELL DISTRIBUTION WIDTH 16.6 % (11.5-14.5)
[2018-05-16 08:02] LABS: WHITE BLOOD COUNT 12.3 10^3/ul (4.8-10.8)
[2018-05-16] MEDS: DOCUSATE SODIUM 10 MG/ML (10ML CUP) GTB ×2 (08:15→21:30)
[2018-05-16] MEDS: MIDODRINE 5 MG TAB GTB ×3 (08:15→17:17)
[2018-05-16] MEDS: AMIODARONE 200 MG TAB PO (08:16)
[2018-05-16] MEDS: ASCORBIC ACID 500 MG TAB GTB (08:16)
[2018-05-16] MEDS: FLUDROCORTISONE 0.1 MG TAB GTB (08:17)
[2018-05-16] MEDS: FUROSEMIDE 20 MG TAB GTB (08:17)
[2018-05-16] MEDS: NYSTATIN SUSP 5 ML CUP PO ×4 (08:17→21:30)
[2018-05-16] MEDS: MUPIROCIN 2% 22 GM OINT TOP ×2 (08:19→21:31)
[2018-05-16 08:23] LABS: ANION GAP 5 (5-13); BLOOD UREA NITROGEN 50 mg/dl (7-20); CALCIUM 8.8 mg/dl (8.4-10.2); CARBON DIOXIDE 22 mmol/L (21-31); CHLORIDE 107 mmol/L (97-110); CREATININE 1.68 mg/dl (0.61-1.24); GLUCOSE 113 mg/dl (70-220); POTASSIUM 3.9 mmol/L (3.5-5.1); SODIUM 134 mmol/L (135-144)
[2018-05-16] MEDS: SODIUM HYPOCHLORITE (1/40) 1 APPLIC BTL IRR (08:32)
[2018-05-16] MEDS: BALSAM PERU/CASTOR OIL 60 GM TUBE TOP (08:33)
[2018-05-16] MEDS: COLLAGENASE 5 GM (UD JAR) TOP (08:34)
[2018-05-16] MEDS: ZYVOX 600 MG TAB PO (09:04)
[2018-05-16] MEDS: DAPTOMYCIN IVPB (12:03)
[2018-05-16] MEDS: SOD CHLORIDE 0.9% IVPB (12:03)
[2018-05-16] MEDS: ACETAMINOPHEN 650MG/20.3ML CUP GTB ×2 (12:28→21:29)
[2018-05-16] MEDS: ATORVASTATIN 10 MG TAB GTB (21:30)
[2018-05-17] MEDS: PANTOPRAZOLE 40 MG INJ IV (05:30)
[2018-05-17] MEDS: LEVOTHYROXINE 100 MCG VIAL IV (05:34)
[2018-05-17] MEDS: HYDROCORTISONE 100 MG INJ IV ×2 (05:34→17:54)
[2018-05-17] MEDS: INSULIN ASPART [NOVOLOG] 3 ML PEN SC ×4 (05:40→23:32)
[2018-05-17] MEDS: COLISTIMETHATE 100 MG in SOD CHLORIDE 0.9% 100 ML IVPB (05:40)
[2018-05-17 05:55] LABS: ADD MAN DIFF? NO
[2018-05-17 05:56] LABS: ABNORMAL IP MESSAGE 1; BASOPHILS % 0.1 % (0.0-2.0); EOSINOPHILS # 0.1 10^3/ul (0.0-0.5); EOSINOPHILS % 0.9 % (0.0-7.0); HEMATOCRIT 26.3 % (42.0-52.0); HEMOGLOBIN 8.6 g/dl (14.0-18.0); LYMPHOCYTES # 1.4 10^3/ul (0.8-2.9); LYMPHOCYTES % 18.6 % (15.0-51.0); MEAN CORPUSCULAR HGB CONC 32.7 g/dl (32.0-37.0); MEAN CORPUSCULAR VOLUME 97.8 fl (82.0-101.0); MEAN PLATELET VOLUME 9.9 fl (7.4-10.4); MONOCYTE # 0.4 10^3/ul (0.3-0.9); MONOCYTES % 4.9 % (0.0-11.0); NEUTROPHIL # 5.6 10^3/ul (1.6-7.5); PLATELET COUNT 64 10^3/UL (140-415); POSITIVE DIFF @See below; RED BLOOD COUNT 2.69 10^6/ul (4.70-6.10); RED CELL DISTRIBUTION WIDTH 16.5 % (11.5-14.5)
[2018-05-17 05:56] LABS: WHITE BLOOD COUNT 7.5 10^3/ul (4.8-10.8)
[2018-05-17 06:44] LABS: ANION GAP 9 (5-13); BLOOD UREA NITROGEN 50 mg/dl (7-20); CALCIUM 8.7 mg/dl (8.4-10.2); CARBON DIOXIDE 18 mmol/L (21-31); CHLORIDE 109 mmol/L (97-110); CREATININE 1.59 mg/dl (0.61-1.24); GLUCOSE 82 mg/dl (70-220); MAGNESIUM 1.3 mg/dl (1.7-2.5); PHOSPHORUS 3.4 mg/dl (2.5-4.9); POTASSIUM 3.4 mmol/L (3.5-5.1); SODIUM 136 mmol/L (135-144)
[2018-05-17 07:21] LABS: CREATINE KINASE < 20 IU/L (23-200)
[2018-05-17] MEDS: DOCUSATE SODIUM 10 MG/ML (10ML CUP) GTB ×2 (08:15→20:45)
[2018-05-17] MEDS: NYSTATIN SUSP 5 ML CUP PO ×4 (08:15→20:47)
[2018-05-17] MEDS: MUPIROCIN 2% 22 GM OINT TOP ×2 (08:15→20:47)
[2018-05-17] MEDS: MAGNESIUM SULFATE 2 GM/50 ML 50 ML IVPB (08:15)
[2018-05-17] MEDS: POTASSIUM CHLORIDE 20 MEQ POWDER FOR ORAL SOLN GTB (08:16)
[2018-05-17] MEDS: ASCORBIC ACID 500 MG TAB GTB (08:17)
[2018-05-17] MEDS: FUROSEMIDE 20 MG TAB GTB (08:17)
[2018-05-17] MEDS: MIDODRINE 5 MG TAB GTB ×3 (08:18→17:55)
[2018-05-17] MEDS: AMIODARONE 200 MG TAB PO (08:18)
[2018-05-17] MEDS: SODIUM HYPOCHLORITE (1/40) 1 APPLIC BTL IRR (08:19)
[2018-05-17] MEDS: COLLAGENASE 5 GM (UD JAR) TOP (08:19)
[2018-05-17] MEDS: BALSAM PERU/CASTOR OIL 60 GM TUBE TOP (08:19)
[2018-05-17] MEDS: DAPTOMYCIN IVPB (11:02)
[2018-05-17] MEDS: SOD CHLORIDE 0.9% IVPB (11:02)
[2018-05-17] MEDS: LEVALBUTEROL (NEB) 1.25 MG/0.5 ML AMP HHN (12:59)
[2018-05-17] MEDS: ATORVASTATIN 10 MG TAB GTB (20:46)
[2018-05-18] MEDS: PANTOPRAZOLE 40 MG INJ IV (05:32)
[2018-05-18] MEDS: LEVOTHYROXINE 100 MCG VIAL IV (05:35)
[2018-05-18] MEDS: INSULIN ASPART [NOVOLOG] 3 ML PEN SC ×3 (05:35→17:54)
[2018-05-18] MEDS: HYDROCORTISONE 100 MG INJ IV ×2 (05:36→17:08)
[2018-05-18 06:18] LABS: ANION GAP 8 (5-13); BLOOD UREA NITROGEN 50 mg/dl (7-20); CALCIUM 8.7 mg/dl (8.4-10.2); CARBON DIOXIDE 19 mmol/L (21-31); CHLORIDE 108 mmol/L (97-110); CREATININE 1.63 mg/dl (0.61-1.24); GLUCOSE 97 mg/dl (70-220); MAGNESIUM 1.4 mg/dl (1.7-2.5); PHOSPHORUS 3.4 mg/dl (2.5-4.9); POTASSIUM 3.8 mmol/L (3.5-5.1); SODIUM 135 mmol/L (135-144)
[2018-05-18] MEDS: MUPIROCIN 2% 22 GM OINT TOP ×2 (09:00→22:11)
[2018-05-18] MEDS: BALSAM PERU/CASTOR OIL 60 GM TUBE TOP (09:00)
[2018-05-18] MEDS: DOCUSATE SODIUM 10 MG/ML (10ML CUP) GTB ×2 (10:34→22:09)
[2018-05-18] MEDS: COLLAGENASE 5 GM (UD JAR) TOP ×2 (10:34→22:08)
[2018-05-18] MEDS: MIDODRINE 5 MG TAB GTB ×3 (10:34→17:08)
[2018-05-18] MEDS: NYSTATIN SUSP 5 ML CUP PO ×4 (10:34→22:10)
[2018-05-18] MEDS: ASCORBIC ACID 500 MG TAB GTB (10:35)
[2018-05-18] MEDS: AMIODARONE 200 MG TAB PO (10:35)
[2018-05-18] MEDS: FUROSEMIDE 20 MG TAB GTB (10:35)
[2018-05-18] MEDS: SODIUM HYPOCHLORITE (1/40) 1 APPLIC BTL IRR (10:35)
[2018-05-18] MEDS: MAGNESIUM SULFATE 2 GM/50 ML 50 ML IVPB (10:59)
[2018-05-18] MEDS: SOD CHLORIDE 0.9% IVPB (12:54)
[2018-05-18] MEDS: DAPTOMYCIN IVPB (12:54)
[2018-05-18] MEDS: COLISTIMETHATE 100 MG in SOD CHLORIDE 0.9% 100 ML IVPB (17:09)
[2018-05-18] MEDS: ATORVASTATIN 10 MG TAB GTB (22:09)
[2018-05-19] MEDS: HYDROCORTISONE 100 MG INJ IV ×2 (05:29→17:21)
[2018-05-19] MEDS: PANTOPRAZOLE 40 MG INJ IV (05:29)
[2018-05-19] MEDS: INSULIN ASPART [NOVOLOG] 3 ML PEN SC ×4 (06:00→17:29)
[2018-05-19] MEDS: LEVOTHYROXINE 200 MCG VIAL IV (06:14)
[2018-05-19 07:23] LABS: ANION GAP 8 (5-13); BLOOD UREA NITROGEN 45 mg/dl (7-20); CALCIUM 8.8 mg/dl (8.4-10.2); CARBON DIOXIDE 20 mmol/L (21-31); CHLORIDE 107 mmol/L (97-110); CREATININE 1.72 mg/dl (0.61-1.24); GLUCOSE 113 mg/dl (70-220); MAGNESIUM 1.8 mg/dl (1.7-2.5); PHOSPHORUS 3.2 mg/dl (2.5-4.9); POTASSIUM 3.9 mmol/L (3.5-5.1); SODIUM 135 mmol/L (135-144)
[2018-05-19] MEDS: NYSTATIN SUSP 5 ML CUP PO ×4 (08:16→21:51)
[2018-05-19] MEDS: DOCUSATE SODIUM 10 MG/ML (10ML CUP) GTB ×2 (08:16→21:50)
[2018-05-19] MEDS: AMIODARONE 200 MG TAB PO (08:21)
[2018-05-19] MEDS: MIDODRINE 5 MG TAB GTB ×3 (08:22→17:22)
[2018-05-19] MEDS: ASCORBIC ACID 500 MG TAB GTB (08:25)
[2018-05-19] MEDS: SODIUM HYPOCHLORITE (1/40) 1 APPLIC BTL IRR (08:25)
[2018-05-19] MEDS: MUPIROCIN 2% 22 GM OINT TOP ×2 (08:26→21:51)
[2018-05-19] MEDS: COLLAGENASE 5 GM (UD JAR) TOP (08:26)
[2018-05-19] MEDS: BALSAM PERU/CASTOR OIL 60 GM TUBE TOP (08:27)
[2018-05-19] MEDS: FUROSEMIDE 20 MG TAB GTB ×2 (08:29→12:33)
[2018-05-19] MEDS: DAPTOMYCIN 500 MG in SOD CHLORIDE 0.9% 100 ML IVPB (12:33)
[2018-05-19] MEDS: ATORVASTATIN 10 MG TAB GTB (21:51)
[2018-05-20] MEDS: INSULIN ASPART [NOVOLOG] 3 ML PEN SC ×4 (00:50→17:33)
[2018-05-20] MEDS: DEXTROSE 5%-0.45% NACL 1,000 ML IV (02:24)
[2018-05-20] MEDS: COLISTIMETHATE 100 MG in SOD CHLORIDE 0.9% 100 ML IVPB (05:28)
[2018-05-20] MEDS: PANTOPRAZOLE 40 MG INJ IV (05:28)
[2018-05-20] MEDS: LEVOTHYROXINE 100 MCG VIAL IV (05:30)
[2018-05-20 05:52] LABS: ADD MAN DIFF? NO
[2018-05-20] MEDS ORDERED: LEVOTHYROXINE 200 MCG VIAL IV (06:00)
[2018-05-20 06:01] LABS: WHITE BLOOD COUNT 7.8 10^3/ul (4.8-10.8)
[2018-05-20 06:01] LABS: ABNORMAL IP MESSAGE 1; BASOPHILS % 0.1 % (0.0-2.0); EOSINOPHILS # 0.1 10^3/ul (0.0-0.5); EOSINOPHILS % 1.5 % (0.0-7.0); HEMATOCRIT 22.8 % (42.0-52.0); HEMOGLOBIN 7.5 g/dl (14.0-18.0); LYMPHOCYTES # 1.9 10^3/ul (0.8-2.9); LYMPHOCYTES % 23.9 % (15.0-51.0); MEAN CORPUSCULAR HEMOGLOBIN 31.9 pg (29.0-33.0); MEAN CORPUSCULAR HGB CONC 32.9 g/dl (32.0-37.0); MEAN PLATELET VOLUME 10.4 fl (7.4-10.4); MONOCYTE # 0.6 10^3/ul (0.3-0.9); MONOCYTES % 7.9 % (0.0-11.0); NEUTROPHIL # 5.1 10^3/ul (1.6-7.5); NEUTROPHILS % 65.7 % (39.0-77.0); PLATELET COUNT 56 10^3/UL (140-415); POSITIVE DIFF @See below; RED BLOOD COUNT 2.35 10^6/ul (4.70-6.10); RED CELL DISTRIBUTION WIDTH 16.1 % (11.5-14.5)
[2018-05-20 06:28] LABS: ANION GAP 8 (5-13); BLOOD UREA NITROGEN 40 mg/dl (7-20); CALCIUM 8.6 mg/dl (8.4-10.2); CARBON DIOXIDE 20 mmol/L (21-31); CHLORIDE 107 mmol/L (97-110); CREATININE 1.72 mg/dl (0.61-1.24); GLUCOSE 93 mg/dl (70-220); MAGNESIUM 1.5 mg/dl (1.7-2.5); PHOSPHORUS 3.3 mg/dl (2.5-4.9); POTASSIUM 3.7 mmol/L (3.5-5.1); SODIUM 135 mmol/L (135-144)
[2018-05-20] MEDS ORDERED: LIDOCAINE 2% (SDV) 5 ML INJ (07:00)
[2018-05-20] MEDS ORDERED: PROPOFOL 200 MG INJ (07:00)
[2018-05-20] MEDS: DOCUSATE SODIUM 10 MG/ML (10ML CUP) GTB ×2 (09:14→20:30)
[2018-05-20] MEDS: ASCORBIC ACID 500 MG TAB GTB (09:14)
[2018-05-20] MEDS: AMIODARONE 200 MG TAB PO (09:15)
[2018-05-20] MEDS: FUROSEMIDE 20 MG TAB GTB (09:15)
[2018-05-20] MEDS: MAGNESIUM SULFATE 2 GM/50 ML 50 ML IVPB (09:15)
[2018-05-20] MEDS: HYDROCORTISONE 100 MG INJ IV (09:16)
[2018-05-20] MEDS: SODIUM HYPOCHLORITE (1/40) 1 APPLIC BTL IRR (09:16)
[2018-05-20] MEDS: BALSAM PERU/CASTOR OIL 60 GM TUBE TOP (09:16)
[2018-05-20] MEDS: NYSTATIN SUSP 5 ML CUP PO ×4 (09:16→20:30)
[2018-05-20] MEDS: MUPIROCIN 2% 22 GM OINT TOP ×2 (09:16→20:31)
[2018-05-20] MEDS: COLLAGENASE 5 GM (UD JAR) TOP (09:16)
[2018-05-20] MEDS: MIDODRINE 5 MG TAB GTB ×3 (09:24→17:33)
[2018-05-20] MEDS: EPOETIN 10000 UNITS/1 ML INJ (ESRD) SC (09:25)
[2018-05-20 10:15] LABS: IRON 44 ug/dl (35-150)
[2018-05-20 10:24] LABS: % IRON SATURATION 24 % SAT (22-52); TOTAL IRON BINDING CAPACITY 186 ug/dl (241-421)
[2018-05-20] MEDS: DAPTOMYCIN 500 MG in SOD CHLORIDE 0.9% 100 ML IVPB (12:04)
[2018-05-20 13:47] LABS: HEPARIN INDUCED PLATELET AB NEGATIVE (NEGATIVE)
[2018-05-20] MEDS ORDERED: PHENYLephrine (100 MCG/ML) 5ML SYG ×2 (15:35→15:57)
[2018-05-20] MEDS ORDERED: BUPIVACAINE 0.25%/EPI (SDV) 30 ML INJ (15:54)
[2018-05-20] MEDS: BUPIVACAINE 0.25% (MPF) 30 ML INJ INJ (16:15)
[2018-05-20] MEDS: LIDOCAINE 1%/EPI 30 ML INJ (16:27)
[2018-05-20] MEDS: ACETAMINOPHEN 650MG/20.3ML CUP GTB (19:05)
[2018-05-20] MEDS: ATORVASTATIN 10 MG TAB GTB (20:31)
[2018-05-21] MEDS: INSULIN ASPART [NOVOLOG] 3 ML PEN SC ×4 (06:00→17:38)
[2018-05-21] MEDS ORDERED: HEPARIN 5,000 UNIT/0.5 ML VIAL ×3 (06:16→21:26)
[2018-05-21 06:17] LABS: ADD MAN DIFF? NO
[2018-05-21] MEDS: LEVOTHYROXINE 100 MCG VIAL IV (06:23)
[2018-05-21] MEDS: PANTOPRAZOLE 40 MG INJ IV (06:24)
[2018-05-21 06:29] LABS: ABNORMAL IP MESSAGE 1; BASOPHILS % 0.1 % (0.0-2.0); EOSINOPHILS # 0.1 10^3/ul (0.0-0.5); EOSINOPHILS % 1.3 % (0.0-7.0); HEMATOCRIT 22.4 % (42.0-52.0); HEMOGLOBIN 7.3 g/dl (14.0-18.0); LYMPHOCYTES # 1.4 10^3/ul (0.8-2.9); LYMPHOCYTES % 15.4 % (15.0-51.0); MEAN CORPUSCULAR HEMOGLOBIN 31.7 pg (29.0-33.0); MEAN CORPUSCULAR HGB CONC 32.6 g/dl (32.0-37.0); MEAN CORPUSCULAR VOLUME 97.4 fl (82.0-101.0); MEAN PLATELET VOLUME 10.3 fl (7.4-10.4); MONOCYTE # 0.6 10^3/ul (0.3-0.9); NEUTROPHIL # 6.7 10^3/ul (1.6-7.5); NEUTROPHILS % 74.7 % (39.0-77.0); PLATELET COUNT 65 10^3/UL (140-415); POSITIVE DIFF @See below; RED CELL DISTRIBUTION WIDTH 16.4 % (11.5-14.5)
[2018-05-21] MEDS: HEPARIN SODIUM 5,000 UNIT/ML VIAL SC ×2 (06:43→13:42)
[2018-05-21 06:52] LABS: ANION GAP 8 (5-13); BLOOD UREA NITROGEN 36 mg/dl (7-20); CALCIUM 8.5 mg/dl (8.4-10.2); CARBON DIOXIDE 21 mmol/L (21-31); CHLORIDE 107 mmol/L (97-110); CREATININE 1.82 mg/dl (0.61-1.24); GLUCOSE 107 mg/dl (70-220); MAGNESIUM 1.8 mg/dl (1.7-2.5); PHOSPHORUS 3.8 mg/dl (2.5-4.9); POTASSIUM 3.4 mmol/L (3.5-5.1); SODIUM 136 mmol/L (135-144)
[2018-05-21] MEDS: DOCUSATE SODIUM 10 MG/ML (10ML CUP) GTB ×2 (09:08→21:32)
[2018-05-21] MEDS: HYDROCORTISONE 100 MG INJ IV (09:09)
[2018-05-21] MEDS: ASPIRIN 325 MG TAB PO (09:09)
[2018-05-21] MEDS: NYSTATIN SUSP 5 ML CUP PO ×4 (09:09→21:32)
[2018-05-21] MEDS: POTASSIUM CHLORIDE 20 MEQ POWDER FOR ORAL SOLN GTB (09:09)
[2018-05-21] MEDS: MUPIROCIN 2% 22 GM OINT TOP ×2 (09:09→21:33)
[2018-05-21] MEDS: MIDODRINE 5 MG TAB GTB ×3 (09:10→16:54)
[2018-05-21] MEDS: AMIODARONE 200 MG TAB PO (09:10)
[2018-05-21] MEDS: FUROSEMIDE 20 MG TAB GTB (09:11)
[2018-05-21] MEDS: ASCORBIC ACID 500 MG TAB GTB (09:11)
[2018-05-21] MEDS: BALSAM PERU/CASTOR OIL 60 GM TUBE TOP (09:12)
[2018-05-21] MEDS: SODIUM HYPOCHLORITE (1/40) 1 APPLIC BTL IRR (09:12)
[2018-05-21] MEDS: COLLAGENASE 5 GM (UD JAR) TOP (09:12)
[2018-05-21] MEDS: ACETAMINOPHEN 650MG/20.3ML CUP GTB (09:40)
[2018-05-21] MEDS: HYDROmorphONE 1 MG/ML SYG IV (10:31)
[2018-05-21] MEDS: DAPTOMYCIN 500 MG in SOD CHLORIDE 0.9% 100 ML IVPB (10:35)
[2018-05-21] MEDS: SOD CHLORIDE 0.9% 250 ML IV (15:03)
[2018-05-21] MEDS: SOD CHLORIDE 0.9% 500 ML IV (16:54)
[2018-05-21] MEDS: COLISTIMETHATE 100 MG in SOD CHLORIDE 0.9% 100 ML IVPB (18:02)
[2018-05-21] MEDS: ATORVASTATIN 10 MG TAB GTB (21:32)
[2018-05-22] MEDS: HEPARIN SODIUM 5,000 UNIT/ML VIAL SC ×4 (02:17→21:13)
[2018-05-22] MEDS ORDERED: HEPARIN 5,000 UNIT/0.5 ML VIAL ×3 (05:26→20:56)
[2018-05-22] MEDS: PANTOPRAZOLE 40 MG INJ IV (05:55)
[2018-05-22] MEDS: LEVOTHYROXINE 100 MCG VIAL IV (05:55)
[2018-05-22] MEDS: INSULIN ASPART [NOVOLOG] 3 ML PEN SC ×4 (06:00→18:00)
[2018-05-22 06:29] LABS: ADD MAN DIFF? NO
[2018-05-22 06:30] LABS: ABNORMAL IP MESSAGE 1; BASOPHILS % 0.1 % (0.0-2.0); EOSINOPHILS # 0.1 10^3/ul (0.0-0.5); EOSINOPHILS % 1.8 % (0.0-7.0); HEMATOCRIT 21.7 % (42.0-52.0); HEMOGLOBIN 7.1 g/dl (14.0-18.0); LYMPHOCYTES # 1.5 10^3/ul (0.8-2.9); MEAN CORPUSCULAR HEMOGLOBIN 32.3 pg (29.0-33.0); MEAN CORPUSCULAR HGB CONC 32.7 g/dl (32.0-37.0); MEAN CORPUSCULAR VOLUME 98.6 fl (82.0-101.0); MEAN PLATELET VOLUME 9.9 fl (7.4-10.4); MONOCYTE # 0.5 10^3/ul (0.3-0.9); MONOCYTES % 6.3 % (0.0-11.0); NEUTROPHIL # 5.6 10^3/ul (1.6-7.5); NEUTROPHILS % 70.8 % (39.0-77.0); PLATELET COUNT 81 10^3/UL (140-415); POSITIVE DIFF @See below; RED CELL DISTRIBUTION WIDTH 16.6 % (11.5-14.5)
[2018-05-22 06:30] LABS: WHITE BLOOD COUNT 7.9 10^3/ul (4.8-10.8)
[2018-05-22 06:57] LABS: ANION GAP 8 (5-13); BLOOD UREA NITROGEN 31 mg/dl (7-20); CALCIUM 8.8 mg/dl (8.4-10.2); CARBON DIOXIDE 20 mmol/L (21-31); CHLORIDE 109 mmol/L (97-110); CREATININE 1.89 mg/dl (0.61-1.24); GLUCOSE 85 mg/dl (70-220); MAGNESIUM 1.6 mg/dl (1.7-2.5); PHOSPHORUS 3.9 mg/dl (2.5-4.9); POTASSIUM 3.9 mmol/L (3.5-5.1); SODIUM 137 mmol/L (135-144)
[2018-05-22] MEDS: HYDROCORTISONE 100 MG INJ IV (08:31)
[2018-05-22] MEDS: COLLAGENASE 5 GM (UD JAR) TOP (08:31)
[2018-05-22] MEDS: NYSTATIN SUSP 5 ML CUP PO ×4 (08:31→21:01)
[2018-05-22] MEDS: BALSAM PERU/CASTOR OIL 60 GM TUBE TOP (08:32)
[2018-05-22] MEDS: MUPIROCIN 2% 22 GM OINT TOP ×2 (08:33→21:01)
[2018-05-22] MEDS: AMIODARONE 200 MG TAB PO (08:33)
[2018-05-22] MEDS: ASPIRIN 325 MG TAB PO (08:34)
[2018-05-22] MEDS: ASCORBIC ACID 500 MG TAB GTB (08:34)
[2018-05-22] MEDS: DOCUSATE SODIUM 10 MG/ML (10ML CUP) GTB ×2 (08:34→20:59)
[2018-05-22] MEDS: MIDODRINE 5 MG TAB GTB ×3 (08:39→18:29)
[2018-05-22] MEDS: MAGNESIUM SULFATE 2 GM/50 ML 50 ML IVPB (09:59)
[2018-05-22] MEDS: SODIUM HYPOCHLORITE (1/40) 1 APPLIC BTL IRR (12:58)
[2018-05-22] MEDS: DAPTOMYCIN 500 MG in SOD CHLORIDE 0.9% 100 ML IVPB (12:59)
[2018-05-22] MEDS: ATORVASTATIN 10 MG TAB GTB (20:59)
[2018-05-22] MEDS: SOD CHLORIDE 0.9% 250 ML IV* (23:15)
[2018-05-23] MEDS ORDERED: HEPARIN 5,000 UNIT/0.5 ML VIAL ×3 (04:15→21:00)
[2018-05-23] MEDS: PANTOPRAZOLE 40 MG INJ IV (05:00)
[2018-05-23] MEDS: LEVOTHYROXINE 100 MCG VIAL IV (05:01)
[2018-05-23] MEDS: COLISTIMETHATE 100 MG in SOD CHLORIDE 0.9% 100 ML IVPB (05:02)
[2018-05-23] MEDS: HEPARIN SODIUM 5,000 UNIT/ML VIAL SC ×3 (05:22→21:26)
[2018-05-23] MEDS: INSULIN ASPART [NOVOLOG] 3 ML PEN SC ×4 (05:23→17:38)
[2018-05-23 06:41] LABS: ADD MAN DIFF? NO
[2018-05-23 06:45] LABS: ABNORMAL IP MESSAGE 1; BASOPHILS % 0.3 % (0.0-2.0); EOSINOPHILS # 0.1 10^3/ul (0.0-0.5); EOSINOPHILS % 1.4 % (0.0-7.0); HEMATOCRIT 24.6 % (42.0-52.0); LYMPHOCYTES # 1.3 10^3/ul (0.8-2.9); LYMPHOCYTES % 13.8 % (15.0-51.0); MEAN CORPUSCULAR HEMOGLOBIN 31.4 pg (29.0-33.0); MEAN CORPUSCULAR HGB CONC 32.5 g/dl (32.0-37.0); MEAN CORPUSCULAR VOLUME 96.5 fl (82.0-101.0); MEAN PLATELET VOLUME 9.6 fl (7.4-10.4); MONOCYTE # 0.5 10^3/ul (0.3-0.9); MONOCYTES % 4.8 % (0.0-11.0); NEUTROPHIL # 7.4 10^3/ul (1.6-7.5); PLATELET COUNT 98 10^3/UL (140-415); POSITIVE DIFF @See below; RED BLOOD COUNT 2.55 10^6/ul (4.70-6.10); RED CELL DISTRIBUTION WIDTH 16.9 % (11.5-14.5)
[2018-05-23 06:45] LABS: WHITE BLOOD COUNT 9.4 10^3/ul (4.8-10.8)
[2018-05-23 07:11] LABS: ANION GAP 6 (5-13); BLOOD UREA NITROGEN 28 mg/dl (7-20); CALCIUM 8.7 mg/dl (8.4-10.2); CARBON DIOXIDE 20 mmol/L (21-31); CHLORIDE 110 mmol/L (97-110); CREATININE 1.93 mg/dl (0.61-1.24); GLUCOSE 111 mg/dl (70-220); MAGNESIUM 1.9 mg/dl (1.7-2.5); PHOSPHORUS 3.6 mg/dl (2.5-4.9); POTASSIUM 3.9 mmol/L (3.5-5.1); SODIUM 136 mmol/L (135-144)
[2018-05-23] MEDS: HYDROCORTISONE 100 MG INJ IV (08:45)
[2018-05-23] MEDS: ASPIRIN 325 MG TAB PO (08:45)
[2018-05-23] MEDS: ASCORBIC ACID 500 MG TAB GTB (08:45)
[2018-05-23] MEDS: SODIUM HYPOCHLORITE (1/40) 1 APPLIC BTL IRR (08:46)
[2018-05-23] MEDS: DOCUSATE SODIUM 10 MG/ML (10ML CUP) GTB ×2 (08:46→21:05)
[2018-05-23] MEDS: NYSTATIN SUSP 5 ML CUP PO ×4 (08:46→21:05)
[2018-05-23] MEDS: AMIODARONE 200 MG TAB PO (08:47)
[2018-05-23] MEDS: COLLAGENASE 5 GM (UD JAR) TOP (08:47)
[2018-05-23] MEDS: BALSAM PERU/CASTOR OIL 60 GM TUBE TOP (08:47)
[2018-05-23] MEDS: MUPIROCIN 2% 22 GM OINT TOP ×2 (08:47→21:06)
[2018-05-23] MEDS: MIDODRINE 5 MG TAB GTB ×3 (08:58→17:38)
[2018-05-23] MEDS: DAPTOMYCIN 500 MG in SOD CHLORIDE 0.9% 100 ML IVPB (10:55)
[2018-05-23] MEDS: ATORVASTATIN 10 MG TAB GTB (21:05)
[2018-05-24] MEDS ORDERED: HEPARIN 5,000 UNIT/0.5 ML VIAL ×3 (05:42→20:34)
[2018-05-24] MEDS: PANTOPRAZOLE 40 MG INJ IV (05:51)
[2018-05-24] MEDS: LEVOTHYROXINE 100 MCG VIAL IV (05:51)
[2018-05-24] MEDS: HEPARIN SODIUM 5,000 UNIT/ML VIAL SC ×3 (05:53→21:28)
[2018-05-24] MEDS: INSULIN ASPART [NOVOLOG] 3 ML PEN SC ×5 (05:54→23:51)
[2018-05-24 06:19] LABS: ADD MAN DIFF? NO
[2018-05-24 06:38] LABS: WHITE BLOOD COUNT 8.1 10^3/ul (4.8-10.8)
[2018-05-24 06:38] LABS: BASOPHILS % 0.2 % (0.0-2.0); EOSINOPHILS # 0.2 10^3/ul (0.0-0.5); HEMATOCRIT 23.7 % (42.0-52.0); HEMOGLOBIN 7.7 g/dl (14.0-18.0); LYMPHOCYTES # 1.3 10^3/ul (0.8-2.9); LYMPHOCYTES % 16.5 % (15.0-51.0); MEAN CORPUSCULAR HEMOGLOBIN 31.6 pg (29.0-33.0); MEAN CORPUSCULAR HGB CONC 32.5 g/dl (32.0-37.0); MEAN CORPUSCULAR VOLUME 97.1 fl (82.0-101.0); MEAN PLATELET VOLUME 10.1 fl (7.4-10.4); MONOCYTE # 0.4 10^3/ul (0.3-0.9); MONOCYTES % 4.9 % (0.0-11.0); NEUTROPHIL # 6.1 10^3/ul (1.6-7.5); NEUTROPHILS % 74.7 % (39.0-77.0); PLATELET COUNT 107 10^3/UL (140-415); RED BLOOD COUNT 2.44 10^6/ul (4.70-6.10)
[2018-05-24 07:00] LABS: CREATINE KINASE 231 IU/L (23-200)
[2018-05-24 07:17] LABS: ANION GAP 9 (5-13)
[2018-05-24 07:22] LABS: BLOOD UREA NITROGEN 29 mg/dl (7-20); CALCIUM 8.6 mg/dl (8.4-10.2); CARBON DIOXIDE 19 mmol/L (21-31); CHLORIDE 109 mmol/L (97-110); CREATININE 1.92 mg/dl (0.61-1.24); GLUCOSE 97 mg/dl (70-220); POTASSIUM 4.2 mmol/L (3.5-5.1); SODIUM 137 mmol/L (135-144)
[2018-05-24] MEDS: DOCUSATE SODIUM 10 MG/ML (10ML CUP) GTB ×2 (09:31→20:00)
[2018-05-24] MEDS: ASCORBIC ACID 500 MG TAB GTB (09:31)
[2018-05-24] MEDS: HYDROCORTISONE 100 MG INJ IV (09:32)
[2018-05-24] MEDS: MUPIROCIN 2% 22 GM OINT TOP ×2 (09:32→21:25)
[2018-05-24] MEDS: NYSTATIN SUSP 5 ML CUP PO ×4 (09:32→21:24)
[2018-05-24] MEDS: AMIODARONE 200 MG TAB PO (09:32)
[2018-05-24] MEDS: COLLAGENASE 5 GM (UD JAR) TOP (09:32)
[2018-05-24] MEDS: BALSAM PERU/CASTOR OIL 60 GM TUBE TOP (09:34)
[2018-05-24] MEDS: ASPIRIN 325 MG TAB PO (09:34)
[2018-05-24] MEDS: SODIUM HYPOCHLORITE (1/40) 1 APPLIC BTL IRR (09:34)
[2018-05-24] MEDS: MIDODRINE 5 MG TAB GTB ×3 (09:42→18:15)
[2018-05-24] MEDS: DAPTOMYCIN 500 MG in SOD CHLORIDE 0.9% 100 ML IVPB (12:06)
[2018-05-24] MEDS: COLISTIMETHATE 100 MG in SOD CHLORIDE 0.9% 100 ML IVPB (18:28)
[2018-05-25] MEDS ORDERED: HEPARIN 5,000 UNIT/0.5 ML VIAL ×3 (05:59→22:33)
[2018-05-25] MEDS: INSULIN ASPART [NOVOLOG] 3 ML PEN SC ×3 (06:00→18:50)
[2018-05-25] MEDS: PANTOPRAZOLE 40 MG INJ IV (06:05)
[2018-05-25] MEDS: LEVOTHYROXINE 100 MCG VIAL IV (06:06)
[2018-05-25] MEDS: HEPARIN SODIUM 5,000 UNIT/ML VIAL SC ×3 (06:11→22:46)
[2018-05-25 07:25] LABS: ADD MAN DIFF? NO
[2018-05-25 07:29] LABS: BASOPHILS % 0.1 % (0.0-2.0); EOSINOPHILS # 0.2 10^3/ul (0.0-0.5); EOSINOPHILS % 2.3 % (0.0-7.0); HEMATOCRIT 23.6 % (42.0-52.0); HEMOGLOBIN 7.6 g/dl (14.0-18.0); LYMPHOCYTES # 1.4 10^3/ul (0.8-2.9); LYMPHOCYTES % 17.6 % (15.0-51.0); MEAN CORPUSCULAR HEMOGLOBIN 31.7 pg (29.0-33.0); MEAN CORPUSCULAR HGB CONC 32.2 g/dl (32.0-37.0); MEAN CORPUSCULAR VOLUME 98.3 fl (82.0-101.0); MEAN PLATELET VOLUME 9.6 fl (7.4-10.4); MONOCYTE # 0.4 10^3/ul (0.3-0.9); MONOCYTES % 4.4 % (0.0-11.0); NEUTROPHIL # 5.8 10^3/ul (1.6-7.5); NEUTROPHILS % 73.7 % (39.0-77.0); PLATELET COUNT 119 10^3/UL (140-415); RED CELL DISTRIBUTION WIDTH 16.8 % (11.5-14.5)
[2018-05-25 07:29] LABS: WHITE BLOOD COUNT 7.9 10^3/ul (4.8-10.8)
[2018-05-25 07:54] LABS: ANION GAP 8 (5-13); BLOOD UREA NITROGEN 30 mg/dl (7-20); CALCIUM 8.8 mg/dl (8.4-10.2); CARBON DIOXIDE 19 mmol/L (21-31); CHLORIDE 110 mmol/L (97-110); CREATININE 2.03 mg/dl (0.61-1.24); GLUCOSE 116 mg/dl (70-220); POTASSIUM 4.1 mmol/L (3.5-5.1); SODIUM 137 mmol/L (135-144)
[2018-05-25] MEDS: HYDROCORTISONE 100 MG INJ IV (09:33)
[2018-05-25] MEDS: NYSTATIN SUSP 5 ML CUP PO ×4 (09:33→21:00)
[2018-05-25] MEDS: DOCUSATE SODIUM 10 MG/ML (10ML CUP) GTB ×2 (09:33→21:00)
[2018-05-25] MEDS: ASCORBIC ACID 500 MG TAB GTB (09:34)
[2018-05-25] MEDS: AMIODARONE 200 MG TAB PO (09:35)
[2018-05-25] MEDS: ASPIRIN 325 MG TAB PO (09:35)
[2018-05-25] MEDS: MUPIROCIN 2% 22 GM OINT TOP ×2 (09:36→22:47)
[2018-05-25] MEDS: SODIUM HYPOCHLORITE (1/40) 1 APPLIC BTL IRR (09:36)
[2018-05-25] MEDS: BALSAM PERU/CASTOR OIL 60 GM TUBE TOP (09:36)
[2018-05-25] MEDS: COLLAGENASE 5 GM (UD JAR) TOP (09:36)
[2018-05-25] MEDS: MIDODRINE 5 MG TAB GTB ×3 (09:42→18:33)
[2018-05-25 11:06] LABS: IRON 48 ug/dl (35-150)
[2018-05-25 11:15] LABS: % IRON SATURATION 25 % SAT (22-52); TOTAL IRON BINDING CAPACITY 192 ug/dl (241-421)
[2018-05-25 11:18] LABS: FERRITIN > 1000.0 ng/ml (11.1-264.0)
[2018-05-25] MEDS: DAPTOMYCIN 500 MG in SOD CHLORIDE 0.9% 100 ML IVPB (12:39)
[2018-05-25 16:37] LABS: IMMEDIATE SPIN CROSSMATCH 1 2
[2018-05-25] MEDS: SOD CHLORIDE 0.9% 250 ML IV* (16:40)
[2018-05-25] MEDS: EPOETIN ALFA (NESRD) 3,000 UNITS/ML VIAL SC (18:00)
== END 2018-05-26 00:56 | DRG 853 ==
LOC: ICU 23:13 → E/R 21:16 → TEL 05-06 20:14
PROC: 0QBS0ZZ Excision of Coccyx, Open Approach (ICD-10-PCS; 2018-05-20 15:00)
PROC: 0H90XZZ Drainage of Scalp Skin, External Approach (ICD-10-PCS; 2018-05-20 15:00)
PROC: 0H90XZX Drainage of Scalp Skin, External Approach, Diagnostic (ICD-10-PCS; 2018-05-20 15:00)
PROC: 02HV33Z Insertion of Infusion Device into Superior Vena Cava, Percutaneous Approach (ICD-10-PCS; principal; 2018-05-20 15:25)
PROC: 06HY33Z Insertion of Infusion Device into Lower Vein, Percutaneous Approach (ICD-10-PCS; 2018-05-20 15:25)
PROC: 06HY33Z Insertion of Infusion Device into Lower Vein, Percutaneous Approach (ICD-10-PCS; 2018-05-20 15:25)
PROC: 5A1D70Z Performance of Urinary Filtration, Intermittent, Less than 6 Hours Per Day (ICD-10-PCS; 2018-05-20 15:25)
PROC: 30233N1 Transfusion of Nonautologous Red Blood Cells into Peripheral Vein, Percutaneous Approach (ICD-10-PCS; 2018-05-20 15:25)
PROC: 5A1955Z Respiratory Ventilation, Greater than 96 Consecutive Hours (ICD-10-PCS; 2018-05-20 15:25)
DX: A41.9 Sepsis, unspecified organism (principal); R65.21 Severe sepsis with septic shock; L89.814 Pressure ulcer of head, stage 4; L89.154 Pressure ulcer of sacral region, stage 4; J18.1 Lobar pneumonia, unspecified organism; G92 Toxic encephalopathy; J96.21 Acute and chronic respiratory failure with hypoxia; N17.0 Acute kidney failure with tubular necrosis; N39.0 Urinary tract infection, site not specified; E87.0 Hyperosmolality and hypernatremia; E87.2 Acidosis; D68.9 Coagulation defect, unspecified; K56.7 Ileus, unspecified; L02.811 Cutaneous abscess of head [any part, except face]; G82.20 Paraplegia, unspecified; R78.81 Bacteremia; I12.9 Hypertensive chronic kidney disease with stage 1 through stage 4 chronic kidney disease, or unspecified chronic kidney disease; E11.22 Type 2 diabetes mellitus with diabetic chronic kidney disease; N18.9 Chronic kidney disease, unspecified; I48.91 Unspecified atrial fibrillation; E87.5 Hyperkalemia; E03.9 Hypothyroidism, unspecified; E78.5 Hyperlipidemia, unspecified; E66.9 Obesity, unspecified; E87.70 Fluid overload, unspecified; E87.6 Hypokalemia; D69.6 Thrombocytopenia, unspecified; D63.1 Anemia in chronic kidney disease; E11.65 Type 2 diabetes mellitus with hyperglycemia; Z68.28 Body mass index [BMI] 28.0-28.9, adult; B96.4 Proteus (mirabilis) (morganii) as the cause of diseases classified elsewhere; E83.42 Hypomagnesemia; Z93.3 Colostomy status; Z22.322 Carrier or suspected carrier of Methicillin resistant Staphylococcus aureus; Z93.1 Gastrostomy status; Z93.0 Tracheostomy status
CPT/HCPCS: 36415; 36430; 36569; 36600; 71045; 74176; 76700; 76937; 80048; 80053; 80202; 81001; 81003; 82043; 82270; 82533; 82550; 82553; 82570; 82728; 82803; 82962; 83036; 83540; 83605; 83735; 83930; 83935; 84100; 84155; 84300; 84484; 85018; 85025; 85384; 85610; 85730; 86022; 86403; 86703; 86706; 86738; 86803; 86850; 86900; 86901; 86920; 87040; 87045; 87070; 87075; 87081; 87086; 87275; 87276; 87279; 87280; 87340; 88304; 89220; 90935; 93005; 93306; 93970; 94002; 94003; 94640; 96365; 96367; 96375; 99291-25

== ENCOUNTER 2018-05-29 17:24 | Inpatient (IN) | payer BC, MEDICAID ==
[2018-05-29] MEDS ORDERED: NORepinephrine 8MG/250 ML (PMX 250 ML (17:49)
[2018-05-29] MEDS: NORepinephrine 8MG/250 ML (PMX 250 ML IV (17:55)
[2018-05-29] MEDS ORDERED: ACETAMINOPHEN 650 MG SUPP PR ×2 (18:00→19:30)
[2018-05-29] MEDS ORDERED: CARBOXYMETHYLCELLULOSE 0.5% 0.4 ML OPH BOTH EYES (18:00)
[2018-05-29] MEDS ORDERED: LORAZEPAM 2 MG INJ IV (18:30)
[2018-05-29] MEDS ORDERED: ONDANSETRON 4 MG INJ IV ×2 (18:30→19:30)
[2018-05-29] MEDS ORDERED: NACL 0.9% 3 ML SYG IV (19:30)
[2018-05-29] MEDS ORDERED: ALBUTEROL/IPRATROPIUM (NEB) 3 ML AMP NEB (19:30)
[2018-05-29 20:00] LABS: MAGNESIUM 2.1 mg/dl (1.7-2.5)
[2018-05-29 20:00] LABS: PHOSPHORUS 6.3 mg/dl (2.5-4.9)
[2018-05-29] MEDS ORDERED: HEPARIN 5,000 UNIT/0.5 ML VIAL (20:13)
[2018-05-29] MEDS: NYSTATIN SUSP 5 ML CUP PO (20:23)
[2018-05-29] MEDS: DEXTROSE 5%-0.9% NACL 1,000 ML IV (20:23)
[2018-05-29] MEDS: ATORVASTATIN 10 MG TAB GTB (20:24)
[2018-05-29] MEDS: SOD CHLORIDE 0.9% 1,000 ML IV (20:24)
[2018-05-29] MEDS: HEPARIN 5,000 UNIT/1 ML VIAL SC (20:26)
[2018-05-30 01:33] LABS: CREATINE KINASE 515 IU/L (23-200)
[2018-05-30 01:46] LABS: CK INDEX 3.2; TROPONIN-I 0.022 ng/ml (0.000-0.120)
[2018-05-30] MEDS: DEXTROSE 5%-0.9% NACL 1,000 ML IV ×3 (03:58→22:08)
[2018-05-30] MEDS: LEVOTHYROXINE 75 MCG TAB GTB (06:00)
[2018-05-30] MEDS: PANTOPRAZOLE 40 MG INJ IV (06:44)
[2018-05-30 08:13] LABS: ADD MAN DIFF? NO
[2018-05-30 08:19] LABS: WHITE BLOOD COUNT 10.4 10^3/ul (4.8-10.8)
[2018-05-30 08:19] LABS: BASOPHILS % 0.1 % (0.0-2.0); EOSINOPHILS # 0.1 10^3/ul (0.0-0.5); EOSINOPHILS % 0.8 % (0.0-7.0); HEMATOCRIT 28.5 % (42.0-52.0); HEMOGLOBIN 9.2 g/dl (14.0-18.0); LYMPHOCYTES # 0.8 10^3/ul (0.8-2.9); LYMPHOCYTES % 7.7 % (15.0-51.0); MEAN CORPUSCULAR HEMOGLOBIN 32.1 pg (29.0-33.0); MEAN CORPUSCULAR HGB CONC 32.3 g/dl (32.0-37.0); MEAN CORPUSCULAR VOLUME 99.3 fl (82.0-101.0); MEAN PLATELET VOLUME 9.8 fl (7.4-10.4); MONOCYTE # 0.2 10^3/ul (0.3-0.9); MONOCYTES % 1.9 % (0.0-11.0); NEUTROPHIL # 9.1 10^3/ul (1.6-7.5); NEUTROPHILS % 87.4 % (39.0-77.0); PLATELET COUNT 265 10^3/UL (140-415); POSITIVE DIFF @See below; RED BLOOD COUNT 2.87 10^6/ul (4.70-6.10); RED CELL DISTRIBUTION WIDTH 17.4 % (11.5-14.5)
[2018-05-30 08:42] LABS: ANION GAP 12 (5-13); BLOOD UREA NITROGEN 71 mg/dl (7-20); CARBON DIOXIDE 13 mmol/L (21-31); CHLORIDE 114 mmol/L (97-110); CREATININE 3.58 mg/dl (0.61-1.24); GLUCOSE 105 mg/dl (70-220); POTASSIUM 4.7 mmol/L (3.5-5.1); SODIUM 139 mmol/L (135-144)
[2018-05-30 08:43] LABS: CREATINE KINASE 479 IU/L (23-200)
[2018-05-30] MEDS ORDERED: HEPARIN 5,000 UNIT/0.5 ML VIAL ×2 (08:50→22:09)
[2018-05-30 08:53] LABS: CK INDEX 3.3
[2018-05-30] MEDS: ASCORBIC ACID 500 MG TAB GTB (08:58)
[2018-05-30] MEDS: HEPARIN 5,000 UNIT/1 ML VIAL SC ×2 (08:58→22:00)
[2018-05-30] MEDS: NYSTATIN SUSP 5 ML CUP PO ×4 (08:58→21:00)
[2018-05-30] MEDS: AMIODARONE 200 MG TAB GTB (08:59)
[2018-05-30 09:01] LABS: TROPONIN-I 0.017 ng/ml (0.000-0.120)
[2018-05-30] MEDS: SODIUM HYPOCHLORITE (1/40) 1 APPLIC BTL IRR (09:02)
[2018-05-30] MEDS: BALSAM PERU/CASTOR OIL 60 GM TUBE TOP (09:02)
[2018-05-30] MEDS: ASPIRIN 325 MG TAB GTB (09:03)
[2018-05-30 10:27] LABS: ADD UMIC YES; UR ASCORBIC ACID 40 mg/dL (NEGATIVE); UR BACTERIA MODERATE /HPF (NONE SEEN); UR BILIRUBIN (Dip) NEGATIVE (NEGATIVE); UR BLOOD (Dip) 3+ mg/dL (NEGATIVE); UR CLARITY CLOUDY (CLEAR); UR COLOR YELLOW (YELLOW); UR GLUCOSE (Dip) NEGATIVE (NEGATIVE); UR KETONES (Dip) NEGATIVE (NEGATIVE); UR LEUKOCYTE ESTERASE (Dip) 3+ Leu/ul (NEGATIVE); UR MUCUS FEW /HPF (NONE SEEN); UR NITRITE (Dip) NEGATIVE (NEGATIVE); UR RBC 8 /HPF (0-5); UR SPECIFIC GRAVITY (Dip) 1.012 (1.003-1.030); UR SQUAMOUS EPITHELIAL CELL FEW /HPF (FEW); UR TOTAL PROTEIN (Dip) 1+ mg/dl (NEGATIVE); UR UROBILINOGEN (Dip) NEGATIVE (NEGATIVE); UR WBC > 182 /HPF (0-5)
[2018-05-30 10:36] LABS: CREATININE,URINE RANDOM 55.13 mg/dl (20-370)
[2018-05-30 10:36] LABS: SODIUM,URINE RANDOM 24 mmol/L (30-90)
[2018-05-30 10:56] LABS: ANISOCYTOSIS 1+ (0-0); BAND NEUTROPHILS #M 4.1 10^3/ul (0.0-0.6); BAND NEUTROPHILS % (M) 40 % (0-4); BURR CELLS 2+ (0-0); EOSINOPHILS % (M) 2 % (0-7); LYMPHOCYTES #M 0.7 10^3/ul (0.8-2.9); LYMPHOCYTES % (M) 7 % (15-51); MONOCYTE #M 0.3 10^3/ul (0.3-0.9); MONOCYTES % (M) 3 % (0-11); MYELOCYTES #M 0.1 10^3/ul (0.0-0.0); MYELOCYTES % (M) 1 % (0-0); PLATELET ESTIMATE NORMAL; POIKILOCYTOSIS 2+ (0-0); POLYCHROMASIA 1+ (0-0); SEG NEUT #M 5.3 10^3/ul (1.6-7.5); SEGMENTED NEUTROPHILS (M) % 47 % (39-77); SMUDGE%M 43 % (0-0)
[2018-05-30 12:26] LABS: TROPONIN-I < 0.012 ng/ml (0.000-0.120)
[2018-05-30 12:29] LABS: CK INDEX 3.4
[2018-05-30 12:37] LABS: CREATINE KINASE 453 IU/L (23-200)
[2018-05-30] MEDS: CEFEPIME 1GM/50 ML (PMX) 50 ML IVPB (16:38)
[2018-05-30] MEDS: DAPTOMYCIN 340 MG in SOD CHLORIDE 0.9% 100 ML IVPB (20:30)
[2018-05-30] MEDS: ATORVASTATIN 10 MG TAB GTB (21:00)
[2018-05-31] MEDS: ACETAMINOPHEN 650MG/20.3ML CUP GTB (04:18)
[2018-05-31 04:52] LABS: ADD MAN DIFF? NO
[2018-05-31 04:57] LABS: BASOPHILS % 0.2 % (0.0-2.0); EOSINOPHILS # 0.1 10^3/ul (0.0-0.5); EOSINOPHILS % 1.1 % (0.0-7.0); HEMATOCRIT 28.7 % (42.0-52.0); LYMPHOCYTES # 0.8 10^3/ul (0.8-2.9); LYMPHOCYTES % 7.6 % (15.0-51.0); MEAN CORPUSCULAR HEMOGLOBIN 31.6 pg (29.0-33.0); MEAN CORPUSCULAR HGB CONC 31.4 g/dl (32.0-37.0); MEAN CORPUSCULAR VOLUME 100.7 fl (82.0-101.0); MEAN PLATELET VOLUME 10.1 fl (7.4-10.4); MONOCYTE # 0.2 10^3/ul (0.3-0.9); MONOCYTES % 1.7 % (0.0-11.0); NEUTROPHIL # 9.5 10^3/ul (1.6-7.5); NEUTROPHILS % 86.8 % (39.0-77.0); NUCLEATED RED BLOOD CELLS% 0.2 /100WBC (0.0-0.0); PLATELET COUNT 264 10^3/UL (140-415); POSITIVE DIFF @See below; RED BLOOD COUNT 2.85 10^6/ul (4.70-6.10); RED CELL DISTRIBUTION WIDTH 17.8 % (11.5-14.5)
[2018-05-31 05:20] LABS: ANION GAP 8 (5-13); BLOOD UREA NITROGEN 67 mg/dl (7-20); CALCIUM 8.9 mg/dl (8.4-10.2); CARBON DIOXIDE 13 mmol/L (21-31); CHLORIDE 120 mmol/L (97-110); CREATININE 3.37 mg/dl (0.61-1.24); GLUCOSE 82 mg/dl (70-220); POTASSIUM 4.1 mmol/L (3.5-5.1); SODIUM 141 mmol/L (135-144)
[2018-05-31] MEDS: PANTOPRAZOLE 40 MG INJ IV (06:38)
[2018-05-31] MEDS: LEVOTHYROXINE 75 MCG TAB GTB (06:38)
[2018-05-31] MEDS ORDERED: HEPARIN 5,000 UNIT/0.5 ML VIAL ×2 (08:04→21:29)
[2018-05-31] MEDS: DEXTROSE 5%-0.9% NACL 1,000 ML IV (08:08)
[2018-05-31] MEDS: ASCORBIC ACID 500 MG TAB GTB (08:09)
[2018-05-31] MEDS: ASPIRIN 325 MG TAB GTB (08:09)
[2018-05-31] MEDS: AMIODARONE 200 MG TAB GTB (08:09)
[2018-05-31] MEDS: NYSTATIN SUSP 5 ML CUP PO ×4 (08:09→21:45)
[2018-05-31] MEDS: SODIUM HYPOCHLORITE (1/40) 1 APPLIC BTL IRR (08:10)
[2018-05-31] MEDS: HEPARIN 5,000 UNIT/1 ML VIAL SC ×2 (08:13→22:00)
[2018-05-31] MEDS: BALSAM PERU/CASTOR OIL 60 GM TUBE TOP (08:17)
[2018-05-31 08:50] LABS: AADO2 Arterial 55.2 mmHg (7.0-24.0); Allen Test ACCEPTAB; Arterial Base Excess -13.9 mmol/L (-3.0-3); Arterial Blood Gas Oxygen Sat 98.1 mmHG (95.0-100.0); Arterial COHb 0.3 % (0.0-3.0); Arterial Fraction of Oxyhgb 97.4 % (93.0-99.0); Arterial HCO3 11.5 mmol/L (22.0-26.0); Arterial MetHb 0.4 % (0.0-1.5); Arterial pCO2 25.6 mmhg (35-45); MODE VENT - AC; Site Right Brachial
[2018-05-31] MEDS: SODIUM BICARBONATE (IV ADD) 75 MEQ in DEXTROSE 5%-0.45% NACL 925 ML IV (11:07)
[2018-05-31] MEDS: INFLUENZA VIRUS VACCINE 0.5 ML (DISPENSING) IM* (11:10)
[2018-05-31] MEDS: ACCU-CHEK XX ×3 (12:41→21:00)
[2018-05-31] MEDS: CEFEPIME 1GM/50 ML (PMX) 50 ML IVPB (16:15)
[2018-06-01] MEDS: ACCU-CHEK XX ×6 (01:00→21:00)
[2018-06-01] MEDS: SODIUM BICARBONATE (IV ADD) 75 MEQ in DEXTROSE 5%-0.45% NACL 925 ML IV ×2 (02:24→13:40)
[2018-06-01] MEDS: LEVOTHYROXINE 75 MCG TAB GTB (05:13)
[2018-06-01] MEDS: PANTOPRAZOLE 40 MG INJ IV ×2 (05:13→17:29)
[2018-06-01 06:17] LABS: ADD MAN DIFF? NO
[2018-06-01 06:30] LABS: ABNORMAL IP MESSAGE 1; BASOPHILS % 0.3 % (0.0-2.0); EOSINOPHILS # 0.1 10^3/ul (0.0-0.5); EOSINOPHILS % 1.2 % (0.0-7.0); HEMATOCRIT 27.5 % (42.0-52.0); HEMOGLOBIN 8.6 g/dl (14.0-18.0); LYMPHOCYTES # 0.9 10^3/ul (0.8-2.9); MEAN CORPUSCULAR HEMOGLOBIN 31.5 pg (29.0-33.0); MEAN CORPUSCULAR HGB CONC 31.3 g/dl (32.0-37.0); MEAN CORPUSCULAR VOLUME 100.7 fl (82.0-101.0); MEAN PLATELET VOLUME 9.9 fl (7.4-10.4); MONOCYTE # 0.3 10^3/ul (0.3-0.9); MONOCYTES % 2.3 % (0.0-11.0); NEUTROPHILS % 81.5 % (39.0-77.0); NUCLEATED RED BLOOD CELLS% 0.3 /100WBC (0.0-0.0); PLATELET COUNT 244 10^3/UL (140-415); POSITIVE DIFF @See below; RED BLOOD COUNT 2.73 10^6/ul (4.70-6.10); RED CELL DISTRIBUTION WIDTH 18.6 % (11.5-14.5)
[2018-06-01 06:50] LABS: PHOSPHORUS 4.5 mg/dl (2.5-4.9)
[2018-06-01 06:50] LABS: MAGNESIUM 1.7 mg/dl (1.7-2.5)
[2018-06-01 06:53] LABS: ANION GAP 9 (5-13); BLOOD UREA NITROGEN 64 mg/dl (7-20); CALCIUM 9.1 mg/dl (8.4-10.2); CARBON DIOXIDE 13 mmol/L (21-31); CHLORIDE 122 mmol/L (97-110); CREATININE 3.23 mg/dl (0.61-1.24); GLUCOSE 78 mg/dl (70-220); POTASSIUM 3.7 mmol/L (3.5-5.1); SODIUM 144 mmol/L (135-144)
[2018-06-01 07:14] LABS: AADO2 Arterial 55.4 mmHg (7.0-24.0); Allen Test ACCEPTAB; Arterial Base Excess -12.8 mmol/L (-3.0-3); Arterial Blood Gas Oxygen Sat 97.9 mmHG (95.0-100.0); Arterial COHb 0.3 % (0.0-3.0); Arterial Fraction of Oxyhgb 97.1 % (93.0-99.0); Arterial HCO3 13.1 mmol/L (22.0-26.0); Arterial MetHb 0.5 % (0.0-1.5); Arterial Total Hemglobin 9.9 g/dl (12.0-18.0); MODE VENT - AC; Site Right Radial
[2018-06-01 07:29] LABS: ANISOCYTOSIS 1+ (0-0); BAND NEUTROPHILS #M 2.7 10^3/ul (0.0-0.6); BAND NEUTROPHILS % (M) 25 % (0-4); BURR CELLS 1+ (0-0); EOSINOPHILS % (M) 1 % (0-7); LYMPHOCYTES #M 0.4 10^3/ul (0.8-2.9); LYMPHOCYTES % (M) 4 % (15-51); METAMYELOCYTES #M 0.1 10^3/ul (0.0-0.0); METAMYELOCYTES %M 1 % (0-0); MONOCYTE #M 0.2 10^3/ul (0.3-0.9); MONOCYTES % (M) 2 % (0-11); PLATELET ESTIMATE NORMAL; POLYCHROMASIA 1+ (0-0); PROMYELOCYTES #M 0.1 10^3/ul (0-0); PROMYELOCYTES % (M) 1 % (0-0); SEG NEUT #M 7.6 10^3/ul (1.6-7.5); SEGMENTED NEUTROPHILS (M) % 66 % (39-77); SMUDGE%M 47 % (0-0); TOXIC GRANULATION 2+ (0-0)
[2018-06-01] MEDS ORDERED: HEPARIN 5,000 UNIT/0.5 ML VIAL ×2 (08:44→20:51)
[2018-06-01] MEDS: ASPIRIN 325 MG TAB GTB (09:02)
[2018-06-01] MEDS: NYSTATIN SUSP 5 ML CUP PO ×4 (09:03→21:04)
[2018-06-01] MEDS: AMIODARONE 200 MG TAB GTB (09:03)
[2018-06-01] MEDS: SODIUM HYPOCHLORITE (1/40) 1 APPLIC BTL IRR (09:03)
[2018-06-01] MEDS: ASCORBIC ACID 500 MG TAB GTB (09:03)
[2018-06-01] MEDS: BALSAM PERU/CASTOR OIL 60 GM TUBE TOP (09:04)
[2018-06-01] MEDS: HEPARIN 5,000 UNIT/1 ML VIAL SC ×2 (09:18→21:07)
[2018-06-01] MEDS ORDERED: PENDING SANTYL ORDER FOR WOUND CARE XX (13:30)
[2018-06-01 14:15] LABS: HEMATOCRIT 28.2 % (42.0-52.0); HEMOGLOBIN 8.9 g/dl (14.0-18.0)
[2018-06-01] MEDS: CEFEPIME 1GM/50 ML (PMX) 50 ML IVPB (15:51)
[2018-06-01 16:06] LABS: CREATININE, RANDOM URINE 55 mg/dL (20-320); MICROALBUMIN 3.8 mg/dL; MICROALBUMIN/CREATININE RATIO 69 (<30)
[2018-06-01] MEDS: COLLAGENASE 5 GM (UD JAR) TOP (17:29)
[2018-06-01 19:40] LABS: OCCULT BLOOD STOOL POSITIVE (NEGATIVE)
[2018-06-01] MEDS: ZYVOX 600 MG TAB PO (21:04)
[2018-06-01] MEDS: morphine 2 MG INJ IV (23:24)
[2018-06-02] MEDS: SODIUM BICARBONATE (IV ADD) 75 MEQ in DEXTROSE 5%-0.45% NACL 925 ML IV ×2 (00:02→03:00)
[2018-06-02] MEDS: ACCU-CHEK XX ×4 (01:23→17:37)
[2018-06-02] MEDS: BALSAM PERU/CASTOR OIL 60 GM TUBE TOP ×2 (02:09→09:24)
[2018-06-02] MEDS: COLLAGENASE 5 GM (UD JAR) TOP ×2 (02:09→09:23)
[2018-06-02] MEDS: LEVOTHYROXINE 75 MCG TAB GTB (06:05)
[2018-06-02] MEDS: PANTOPRAZOLE 40 MG INJ IV ×2 (06:05→17:43)
[2018-06-02 08:33] LABS: ADD MAN DIFF? NO
[2018-06-02 08:39] LABS: ABNORMAL IP MESSAGE 1; BASOPHIL # 0.1 10^3/ul (0.0-0.1); BASOPHILS % 0.6 % (0.0-2.0); EOSINOPHILS # 0.1 10^3/ul (0.0-0.5); EOSINOPHILS % 1.2 % (0.0-7.0); HEMATOCRIT 28.3 % (42.0-52.0); HEMOGLOBIN 8.8 g/dl (14.0-18.0); MEAN CORPUSCULAR HEMOGLOBIN 31.5 pg (29.0-33.0); MEAN CORPUSCULAR HGB CONC 31.1 g/dl (32.0-37.0); MEAN CORPUSCULAR VOLUME 101.4 fl (82.0-101.0); MEAN PLATELET VOLUME 9.6 fl (7.4-10.4); MONOCYTE # 0.3 10^3/ul (0.3-0.9); MONOCYTES % 2.6 % (0.0-11.0); NEUTROPHIL # 6.7 10^3/ul (1.6-7.5); NUCLEATED RED BLOOD CELLS% 0.3 /100WBC (0.0-0.0); PLATELET COUNT 239 10^3/UL (140-415); POSITIVE DIFF @See below; RED BLOOD COUNT 2.79 10^6/ul (4.70-6.10); RETICULOCYTE COUNT # 0.084 X10^6 (0.020-0.110); RETICULOCYTE COUNT % 3.1 % (0.5-1.5)
[2018-06-02 08:39] LABS: RETICULOCYTE RBC 2.73
[2018-06-02 08:39] LABS: WHITE BLOOD COUNT 9.5 10^3/ul (4.8-10.8)
[2018-06-02] MEDS: CITRIC ACID/NA CITRATE 30 ML CUP PO ×2 (09:00→22:22)
[2018-06-02 09:03] LABS: ANION GAP 5 (5-13); BLOOD UREA NITROGEN 62 mg/dl (7-20); CALCIUM 9.1 mg/dl (8.4-10.2); CARBON DIOXIDE 15 mmol/L (21-31); CHLORIDE 123 mmol/L (97-110); CREATININE 3.31 mg/dl (0.61-1.24); GLUCOSE 110 mg/dl (70-220); POTASSIUM 3.4 mmol/L (3.5-5.1); SODIUM 143 mmol/L (135-144)
[2018-06-02] MEDS ORDERED: HEPARIN 5,000 UNIT/0.5 ML VIAL ×2 (09:16→20:53)
[2018-06-02] MEDS: ASCORBIC ACID 500 MG TAB GTB (09:24)
[2018-06-02] MEDS: ASPIRIN 325 MG TAB GTB (09:24)
[2018-06-02] MEDS: ZYVOX 600 MG TAB PO ×2 (09:24→20:59)
[2018-06-02] MEDS: AMIODARONE 200 MG TAB GTB (09:24)
[2018-06-02] MEDS: NYSTATIN SUSP 5 ML CUP PO ×4 (09:25→20:59)
[2018-06-02] MEDS: SODIUM HYPOCHLORITE (1/40) 1 APPLIC BTL IRR (09:25)
[2018-06-02 09:27] LABS: ANISOCYTOSIS 1+ (0-0); BAND NEUTROPHILS #M 2.3 10^3/ul (0.0-0.6); BAND NEUTROPHILS % (M) 25 % (0-4); EOSINOPHILS % (M) 1 % (0-7); ERYTHROBLAST% (NRBC) (M) 1 % (0-0); LYMPHOCYTES #M 1.2 10^3/ul (0.8-2.9); LYMPHOCYTES % (M) 13 % (15-51); METAMYELOCYTES #M 0.1 10^3/ul (0.0-0.0); METAMYELOCYTES %M 2 % (0-0); MICROCYTOSIS 1+ (0-0); MONOCYTE #M 0.3 10^3/ul (0.3-0.9); MONOCYTES % (M) 4 % (0-11); MYELOCYTES #M 0.3 10^3/ul (0.0-0.0); MYELOCYTES % (M) 4 % (0-0); PLATELET ESTIMATE NORMAL; POIKILOCYTOSIS 1+ (0-0); POLYCHROMASIA 1+ (0-0); REACTIVE LYMPHOCYTES% (M) 1 % (0-0); SEGMENTED NEUTROPHILS (M) % 50 % (39-77); SMUDGE%M 7 % (0-0)
[2018-06-02] MEDS: HEPARIN 5,000 UNIT/1 ML VIAL SC ×2 (09:29→21:04)
[2018-06-02 10:08] LABS: FOLATE 18.4 ng/ml (2.8-20.0)
[2018-06-02] MEDS: morphine 2 MG INJ IV ×2 (12:21→18:20)
[2018-06-02] MEDS: POTASSIUM CHLORIDE 20 MEQ POWDER FOR ORAL SOLN GTB (14:46)
[2018-06-02] MEDS: CEFEPIME 1GM/50 ML (PMX) 50 ML IVPB (16:16)
[2018-06-03] MEDS: ACCU-CHEK XX ×5 (00:53→23:46)
[2018-06-03] MEDS: SOD CHLORIDE 0.9% 1,000 ML IV (05:14)
[2018-06-03] MEDS: MIDODRINE 5 MG TAB GTB ×3 (05:14→17:54)
[2018-06-03] MEDS: METOCLOPRAMIDE 10 MG INJ IV ×4 (05:15→23:44)
[2018-06-03] MEDS: PANTOPRAZOLE 40 MG INJ IV ×2 (05:15→17:52)
[2018-06-03] MEDS: LEVOTHYROXINE 50 MCG TAB GTB (05:47)
[2018-06-03 06:17] LABS: ADD MAN DIFF? NO
[2018-06-03 06:30] LABS: ABNORMAL IP MESSAGE 1; BASOPHIL # 0.1 10^3/ul (0.0-0.1); BASOPHILS % 0.4 % (0.0-2.0); EOSINOPHILS # 0.1 10^3/ul (0.0-0.5); EOSINOPHILS % 1.2 % (0.0-7.0); HEMATOCRIT 26.4 % (42.0-52.0); HEMOGLOBIN 8.2 g/dl (14.0-18.0); LYMPHOCYTES # 1.2 10^3/ul (0.8-2.9); MEAN CORPUSCULAR HEMOGLOBIN 31.7 pg (29.0-33.0); MEAN CORPUSCULAR HGB CONC 31.1 g/dl (32.0-37.0); MEAN CORPUSCULAR VOLUME 101.9 fl (82.0-101.0); MEAN PLATELET VOLUME 9.9 fl (7.4-10.4); MONOCYTE # 0.3 10^3/ul (0.3-0.9); MONOCYTES % 2.7 % (0.0-11.0); NEUTROPHIL # 7.5 10^3/ul (1.6-7.5); NUCLEATED RED BLOOD CELLS% 0.3 /100WBC (0.0-0.0); PLATELET COUNT 232 10^3/UL (140-415); POSITIVE DIFF @See below; RED BLOOD COUNT 2.59 10^6/ul (4.70-6.10); RED CELL DISTRIBUTION WIDTH 19.4 % (11.5-14.5)
[2018-06-03 06:30] LABS: WHITE BLOOD COUNT 11.1 10^3/ul (4.8-10.8)
[2018-06-03 06:33] LABS: PHOSPHORUS 3.3 mg/dl (2.5-4.9)
[2018-06-03 06:33] LABS: MAGNESIUM 1.9 mg/dl (1.7-2.5)
[2018-06-03 06:35] LABS: ANION GAP 6 (5-13); BLOOD UREA NITROGEN 62 mg/dl (7-20); CALCIUM 9.2 mg/dl (8.4-10.2); CARBON DIOXIDE 16 mmol/L (21-31); CHLORIDE 124 mmol/L (97-110); GLUCOSE 96 mg/dl (70-220); POTASSIUM 3.7 mmol/L (3.5-5.1); SODIUM 146 mmol/L (135-144)
[2018-06-03] MEDS: SOD CHLORIDE 0.45% 1,000 ML IV ×2 (08:01→21:54)
[2018-06-03 09:46] LABS: ANISOCYTOSIS 1+ (0-0); BAND NEUTROPHILS #M 2.8 10^3/ul (0.0-0.6); BAND NEUTROPHILS % (M) 26 % (0-4); LYMPHOCYTES #M 1.2 10^3/ul (0.8-2.9); LYMPHOCYTES % (M) 11 % (15-51); METAMYELOCYTES #M 0.2 10^3/ul (0.0-0.0); METAMYELOCYTES %M 2 % (0-0); MICROCYTOSIS 1+ (0-0); MONOCYTE #M 0.5 10^3/ul (0.3-0.9); MONOCYTES % (M) 5 % (0-11); MYELOCYTES #M 0.2 10^3/ul (0.0-0.0); MYELOCYTES % (M) 2 % (0-0); PLASMA CELLS #M 0.1 10^3/ul (0.0-0.0); PLASMAC%(M) 1 % (0); PLATELET ESTIMATE NORMAL; SEG NEUT #M 6.2 10^3/ul (1.6-7.5); SEGMENTED NEUTROPHILS (M) % 53 % (39-77); SMUDGE%M 18 % (0-0)
[2018-06-03] MEDS: CITRIC ACID/NA CITRATE 30 ML CUP PO ×2 (11:26→21:01)
[2018-06-03] MEDS: SODIUM HYPOCHLORITE (1/40) 1 APPLIC BTL IRR (11:26)
[2018-06-03] MEDS: ACETAMINOPHEN 650MG/20.3ML CUP GTB (11:26)
[2018-06-03] MEDS: NYSTATIN SUSP 5 ML CUP PO ×4 (11:26→21:01)
[2018-06-03] MEDS: ASPIRIN 325 MG TAB GTB (11:27)
[2018-06-03] MEDS: COLLAGENASE 5 GM (UD JAR) TOP (11:27)
[2018-06-03] MEDS: AMIODARONE 200 MG TAB GTB (11:27)
[2018-06-03] MEDS: ASCORBIC ACID 500 MG TAB GTB (11:27)
[2018-06-03] MEDS ORDERED: HEPARIN 5,000 UNIT/0.5 ML VIAL ×2 (11:29→20:54)
[2018-06-03] MEDS: ZYVOX 600 MG TAB PO ×2 (11:33→21:01)
[2018-06-03] MEDS: HEPARIN 5,000 UNIT/1 ML VIAL SC ×2 (11:34→21:03)
[2018-06-03] MEDS: BALSAM PERU/CASTOR OIL 60 GM TUBE TOP (11:35)
[2018-06-03] MEDS: ERYTHROMYCIN BASE (EC) 250 MG TAB PO ×2 (17:51→21:03)
[2018-06-03] MEDS: morphine 2 MG INJ IV (17:52)
[2018-06-03] MEDS: CEFEPIME 1GM/50 ML (PMX) 50 ML IVPB (17:54)
[2018-06-04] MEDS: ACCU-CHEK XX ×3 (05:28→17:30)
[2018-06-04] MEDS: LEVOTHYROXINE 50 MCG TAB GTB (05:28)
[2018-06-04] MEDS: ERYTHROMYCIN BASE (EC) 250 MG TAB PO ×3 (05:28→21:11)
[2018-06-04] MEDS: PANTOPRAZOLE 40 MG INJ IV ×2 (05:28→17:30)
[2018-06-04] MEDS: METOCLOPRAMIDE 10 MG INJ IV ×3 (05:28→17:30)
[2018-06-04 08:14] LABS: WHITE BLOOD COUNT 13.6 10^3/ul (4.8-10.8)
[2018-06-04 08:15] LABS: ABNORMAL IP MESSAGE 1; HEMATOCRIT 27.4 % (42.0-52.0); HEMOGLOBIN 8.5 g/dl (14.0-18.0); MEAN CORPUSCULAR HEMOGLOBIN 31.8 pg (29.0-33.0); MEAN CORPUSCULAR VOLUME 102.6 fl (82.0-101.0); MEAN PLATELET VOLUME 9.7 fl (7.4-10.4); NUCLEATED RED BLOOD CELLS% 0.2 /100WBC (0.0-0.0); PLATELET COUNT 233 10^3/UL (140-415); POSITIVE DIFF @See below; RED BLOOD COUNT 2.67 10^6/ul (4.70-6.10); RED CELL DISTRIBUTION WIDTH 19.8 % (11.5-14.5)
[2018-06-04 08:16] LABS: ADD MAN DIFF? YES
[2018-06-04 08:36] LABS: ANION GAP 5 (5-13); BLOOD UREA NITROGEN 58 mg/dl (7-20); CALCIUM 9.2 mg/dl (8.4-10.2); CARBON DIOXIDE 17 mmol/L (21-31); CHLORIDE 124 mmol/L (97-110); CREATININE 3.08 mg/dl (0.61-1.24); GLUCOSE 84 mg/dl (70-220); MAGNESIUM 1.8 mg/dl (1.7-2.5); PHOSPHORUS 3.5 mg/dl (2.5-4.9); POTASSIUM 3.5 mmol/L (3.5-5.1); SODIUM 146 mmol/L (135-144)
[2018-06-04 09:04] LABS: ANISOCYTOSIS 1+ (0-0); BAND NEUTROPHILS #M 0.2 10^3/ul (0.0-0.6); BAND NEUTROPHILS % (M) 2 % (0-4); BURR CELLS 2+ (0-0); LYMPHOCYTES #M 1.3 10^3/ul (0.8-2.9); LYMPHOCYTES % (M) 10 % (15-51); METAMYELOCYTES #M 0.8 10^3/ul (0.0-0.0); METAMYELOCYTES %M 6 % (0-0); MONOCYTE #M 0.2 10^3/ul (0.3-0.9); MONOCYTES % (M) 2 % (0-11); MYELOCYTES #M 0.6 10^3/ul (0.0-0.0); MYELOCYTES % (M) 5 % (0-0); PLATELET ESTIMATE NORMAL; POIKILOCYTOSIS 2+ (0-0); POLYCHROMASIA 1+ (0-0); SEG NEUT #M 10.2 10^3/ul (1.6-7.5); SEGMENTED NEUTROPHILS (M) % 75 % (39-77); SMUDGE%M 1 % (0-0)
[2018-06-04] MEDS ORDERED: HEPARIN 5,000 UNIT/0.5 ML VIAL ×2 (09:38→21:05)
[2018-06-04] MEDS: SODIUM HYPOCHLORITE (1/40) 1 APPLIC BTL IRR (09:45)
[2018-06-04] MEDS: MIDODRINE 5 MG TAB GTB ×3 (09:46→16:55)
[2018-06-04] MEDS: ASPIRIN 325 MG TAB GTB (09:46)
[2018-06-04] MEDS: AMIODARONE 200 MG TAB GTB (09:46)
[2018-06-04] MEDS: MULTIVITAMINS 30 ML CUP GTB (09:46)
[2018-06-04] MEDS: CITRIC ACID/NA CITRATE 30 ML CUP PO ×2 (09:46→21:11)
[2018-06-04] MEDS: NYSTATIN SUSP 5 ML CUP PO ×4 (09:46→21:11)
[2018-06-04] MEDS: BALSAM PERU/CASTOR OIL 60 GM TUBE TOP (09:47)
[2018-06-04] MEDS: ZYVOX 600 MG TAB PO ×2 (09:47→21:11)
[2018-06-04] MEDS: COLLAGENASE 5 GM (UD JAR) TOP (09:47)
[2018-06-04] MEDS: ASCORBIC ACID 500 MG TAB GTB (09:47)
[2018-06-04] MEDS: HEPARIN 5,000 UNIT/1 ML VIAL SC ×2 (09:56→21:27)
[2018-06-04] MEDS: SOD CHLORIDE 0.45% 1,000 ML IV (09:59)
[2018-06-04] MEDS: CEFEPIME 1GM/50 ML (PMX) 50 ML IVPB (16:55)
[2018-06-04] MEDS: morphine 2 MG INJ IV (22:09)
[2018-06-05] MEDS: METOCLOPRAMIDE 10 MG INJ IV ×4 (00:42→17:08)
[2018-06-05] MEDS: ACCU-CHEK XX ×4 (00:42→17:21)
[2018-06-05] MEDS: SOD CHLORIDE 0.45% 1,000 ML IV (00:42)
[2018-06-05] MEDS: morphine 2 MG INJ IV (04:58)
[2018-06-05] MEDS: LEVOTHYROXINE 50 MCG TAB GTB (05:34)
[2018-06-05] MEDS: PANTOPRAZOLE 40 MG INJ IV ×2 (05:34→17:07)
[2018-06-05] MEDS: ERYTHROMYCIN BASE (EC) 250 MG TAB PO ×3 (05:37→21:44)
[2018-06-05 06:40] LABS: ANION GAP 8 (5-13); BLOOD UREA NITROGEN 56 mg/dl (7-20); CALCIUM 9.3 mg/dl (8.4-10.2); CARBON DIOXIDE 17 mmol/L (21-31); CHLORIDE 121 mmol/L (97-110); GLUCOSE 92 mg/dl (70-220); MAGNESIUM 1.7 mg/dl (1.7-2.5); PHOSPHORUS 3.4 mg/dl (2.5-4.9); POTASSIUM 3.5 mmol/L (3.5-5.1); SODIUM 146 mmol/L (135-144)
[2018-06-05] MEDS ORDERED: HEPARIN 5,000 UNIT/0.5 ML VIAL ×2 (09:40→21:40)
[2018-06-05] MEDS: SODIUM HYPOCHLORITE (1/40) 1 APPLIC BTL IRR (09:51)
[2018-06-05] MEDS: BALSAM PERU/CASTOR OIL 60 GM TUBE TOP (09:51)
[2018-06-05] MEDS: ZYVOX 600 MG TAB PO ×2 (09:52→21:44)
[2018-06-05] MEDS: NYSTATIN SUSP 5 ML CUP PO ×4 (09:52→21:44)
[2018-06-05] MEDS: COLLAGENASE 5 GM (UD JAR) TOP (09:52)
[2018-06-05] MEDS: CITRIC ACID/NA CITRATE 30 ML CUP PO ×2 (09:52→21:44)
[2018-06-05] MEDS: MULTIVITAMINS 30 ML CUP GTB (09:52)
[2018-06-05] MEDS: MIDODRINE 5 MG TAB GTB ×3 (09:52→17:08)
[2018-06-05] MEDS: AMIODARONE 200 MG TAB GTB (09:54)
[2018-06-05] MEDS: HEPARIN 5,000 UNIT/1 ML VIAL SC ×2 (09:54→21:46)
[2018-06-05] MEDS: ASCORBIC ACID 500 MG TAB GTB (09:54)
[2018-06-05] MEDS: ASPIRIN 325 MG TAB GTB (09:54)
[2018-06-05] MEDS: CEFEPIME 1GM/50 ML (PMX) 50 ML IVPB (16:00)
[2018-06-06] MEDS: ACCU-CHEK XX
[2018-06-06] MEDS: METOCLOPRAMIDE 10 MG INJ IV (01:13)
== END 2018-06-06 02:00 | DRG 870 ==
LOC: TEL 05-31 11:56 → ICU 17:24
PROVIDERS: Internal Medicine
PROC: 5A1955Z Respiratory Ventilation, Greater than 96 Consecutive Hours (ICD-10-PCS; principal; 2018-05-29)
DX: A41.9 Sepsis, unspecified organism (principal); L89.154 Pressure ulcer of sacral region, stage 4; L89.814 Pressure ulcer of head, stage 4; R65.21 Severe sepsis with septic shock; J18.9 Pneumonia, unspecified organism; N17.0 Acute kidney failure with tubular necrosis; J96.10 Chronic respiratory failure, unspecified whether with hypoxia or hypercapnia; Z99.11 Dependence on respirator [ventilator] status; N39.0 Urinary tract infection, site not specified; E87.2 Acidosis; M46.28 Osteomyelitis of vertebra, sacral and sacrococcygeal region; K56.50 Intestinal adhesions [bands], unspecified as to partial versus complete obstruction; E11.22 Type 2 diabetes mellitus with diabetic chronic kidney disease; N18.9 Chronic kidney disease, unspecified; I48.0 Paroxysmal atrial fibrillation; Z93.3 Colostomy status; D63.1 Anemia in chronic kidney disease; R13.10 Dysphagia, unspecified; E03.9 Hypothyroidism, unspecified; E87.5 Hyperkalemia; Z93.1 Gastrostomy status; Z93.0 Tracheostomy status; Z22.322 Carrier or suspected carrier of Methicillin resistant Staphylococcus aureus
CPT/HCPCS: 36600; 71045; 74018; 80048; 81001; 81003; 82043; 82270; 82550; 82553; 82607; 82728; 82746; 82803; 82962; 83735; 84100; 84155; 84300; 84484; 85014; 85018; 85025; 85045; 87045; 87075; 87081; 87177; 90686; 92526; 92610; 93005; 93971; 94002; 94003

== ENCOUNTER 2018-06-12 11:01 | Day surgery (SDC) | payer OTHER ==
[~2018-06-12 11:01] MED LIST: LIDOCAINE 2% (SDV) 5 ML INJ
[2018-06-12] MEDS ORDERED: FENTAnyl 50 MCG/ML VIAL (17:54)
[2018-06-12] MEDS ORDERED: ETOMIDATE 20 MG INJ (17:54)
[2018-06-12] MEDS ORDERED: MIDAZOLAM 1 MG/ML 2 ML INJ (17:54)
[2018-06-12] MEDS ORDERED: METOCLOPRAMIDE 10 MG INJ IV (18:30)
[2018-06-13] MEDS ORDERED: PANTOPRAZOLE 40 MG INJ IV (06:00)
== END 2018-06-12 19:05 ==
LOC: SUR 11:01 → SDS 19:05
DX: K29.50 Unspecified chronic gastritis without bleeding (principal); K25.9 Gastric ulcer, unspecified as acute or chronic, without hemorrhage or perforation; E11.9 Type 2 diabetes mellitus without complications
CPT/HCPCS: 43239; 88305; 88312

== ENCOUNTER 2018-06-25 08:00 | Day surgery (SDC) | payer OTHER ==
[2018-06-25] MEDS ORDERED: LABETALOL HCL 20MG INJ IV (18:30)
[2018-06-25] MEDS ORDERED: EPHEDrine SULFATE 50 MG/5 ML SYG IV (18:30)
[2018-06-25] MEDS ORDERED: hydrALAzine 20 MG INJ IV (18:30)
[2018-06-25] MEDS ORDERED: HYDROmorphONE 1 MG/5 ML IV SYRINGE IV ×2 (18:30)
[2018-06-25] MEDS ORDERED: FENTAnyl 50 MCG/ML VIAL IV ×2 (18:30)
[2018-06-25] MEDS ORDERED: ONDANSETRON 4 MG INJ IV (18:30)
== END 2018-06-25 20:15 ==
LOC: SDS 08:00
DX: K60.3 Anal fistula (principal); K25.9 Gastric ulcer, unspecified as acute or chronic, without hemorrhage or perforation; E03.9 Hypothyroidism, unspecified; E78.5 Hyperlipidemia, unspecified; I10 Essential (primary) hypertension; I48.91 Unspecified atrial fibrillation
CPT/HCPCS: 43235

== ENCOUNTER 2018-06-25 16:50 | Day surgery (SDC) | payer OTHER ==
[~2018-06-25 16:50] MED LIST changes: +DEXAMETHASONE 4 MG/ML 1 ML INJ; +FAMOTIDINE 20 MG INJ; +FENTAnyl 50 MCG/ML VIAL; +HETASTARCH 6% NACL 500 ML BAG; -LIDOCAINE 2% (SDV) 5 ML INJ; +METOCLOPRAMIDE 10 MG INJ; +ONDANSETRON 4 MG INJ
== END 2018-06-25 20:15 ==
LOC: SUR 16:50 → SDS 16:50 → SUR 20:15
DX: K25.9 Gastric ulcer, unspecified as acute or chronic, without hemorrhage or perforation (principal); K64.9 Unspecified hemorrhoids; K60.3 Anal fistula
CPT/HCPCS: 43235

== ENCOUNTER 2018-06-29 14:30 | Inpatient (IN) | payer BC ==
[2018-06-29] MEDS ORDERED: VANCOMYCIN IV PER PHARMACY XX (16:00)
[2018-06-29] MEDS ORDERED: PENDING SANTYL ORDER FOR WOUND CARE XX (16:00)
[2018-06-29] MEDS ORDERED: LORAZEPAM 2 MG INJ IV (16:00)
[2018-06-29] MEDS ORDERED: ALBUTEROL/IPRATROPIUM (NEB) 3 ML AMP HHN (16:00)
[2018-06-29] MEDS: DEXTROSE 5%-0.9% NACL 1,000 ML IV (16:34)
[2018-06-29 17:22] LABS: INR 3.67; PROTIME 37.6 Sec (11.9-14.9); PT RATIO 2.9
[2018-06-29 17:23] LABS: PARTIAL THROMBOPLASTIN TIME 42.4 Sec (23.0-35.0)
[2018-06-29 17:24] LABS: ALANINE AMINOTRANSFERASE 26 IU/L (13-69); ALBUMIN 1.5 g/dl (3.3-4.9); ALBUMIN/GLOBULIN RATIO 0.71; ALKALINE PHOSPHATASE 82 IU/L (42-121); ANION GAP 9 (5-13); ASPARTATE AMINO TRANSFERASE 21 IU/L (15-46); BILIRUBIN,INDIRECT 0.6 mg/dl (0-1.1); BILIRUBIN,TOTAL 0.7 mg/dl (0.2-1.3); BLOOD UREA NITROGEN 32 mg/dl (7-20); CALCIUM 7.3 mg/dl (8.4-10.2); CARBON DIOXIDE 21 mmol/L (21-31); CHLORIDE 116 mmol/L (97-110); CREATININE 3.11 mg/dl (0.61-1.24); GLUCOSE 76 mg/dl (70-220); POTASSIUM 3.6 mmol/L (3.5-5.1); SODIUM 146 mmol/L (135-144); TOTAL PROTEIN 3.6 g/dl (6.1-8.1)
[2018-06-29 17:33] LABS: LACTIC ACID 4.4 mmol/L (0.5-2.0)
[2018-06-29 19:52] LABS: WHITE BLOOD COUNT 16.8 10^3/ul (4.8-10.8)
[2018-06-29 19:52] LABS: ABNORMAL IP MESSAGE 1; HEMATOCRIT 28.1 % (42.0-52.0); HEMOGLOBIN 9.1 g/dl (14.0-18.0); MEAN CORPUSCULAR HEMOGLOBIN 31.4 pg (29.0-33.0); MEAN CORPUSCULAR HGB CONC 32.4 g/dl (32.0-37.0); MEAN CORPUSCULAR VOLUME 96.9 fl (82.0-101.0); NUCLEATED RED BLOOD CELLS% 1.4 /100WBC (0.0-0.0); POSITIVE DIFF @See below; RED CELL DISTRIBUTION WIDTH 21.7 % (11.5-14.5)
[2018-06-29 19:59] LABS: MEAN PLATELET VOLUME 13.1 fl (7.4-10.4)
[2018-06-29] MEDS ORDERED: AMIKACIN IV PER PHARMACY XX (20:00)
[2018-06-29 20:01] LABS: ADD MAN DIFF? YES; PLATELET COUNT 30 10^3/UL (140-415)
[2018-06-29] MEDS: EPOETIN 3000 UNITS/1 ML INJ (ESRD) SC (20:08)
[2018-06-29] MEDS: PANTOPRAZOLE 40 MG INJ IV (20:08)
[2018-06-29] MEDS: EPOETIN 2000 UNITS/1 ML INJ (ESRD) SC (20:08)
[2018-06-29] MEDS: CASPOFUNGIN 70 MG in NS 250 ML IVPB (20:08)
[2018-06-29] MEDS: SOD CHLORIDE 0.9% 250 ML IV* (20:11)
[2018-06-29] MEDS: ALBUTEROL/IPRATROPIUM (NEB) 3 ML AMP HHN (20:24)
[2018-06-29 20:46] LABS: ANISOCYTOSIS 1+ (0-0); BAND NEUTROPHILS #M 1.5 10^3/ul (0.0-0.6); BAND NEUTROPHILS % (M) 9 % (0-4); BURR CELLS 2+ (0-0); EOSINOPHILS % (M) 1 % (0-7); ERYTHROBLAST% (NRBC) (M) 1 % (0-0); GIANT THROMBO% (M) 3 % (0-0); LYMPHOCYTES #M 0.3 10^3/ul (0.8-2.9); LYMPHOCYTES % (M) 2 % (15-51); MONOCYTE #M 0.5 10^3/ul (0.3-0.9); MONOCYTES % (M) 3 % (0-11); PLATELET ESTIMATE SIG DECREASED; POIKILOCYTOSIS 2+ (0-0); POLYCHROMASIA 1+ (0-0); SEG NEUT #M 14.5 10^3/ul (1.6-7.5); SEGMENTED NEUTROPHILS (M) % 85 % (39-77); SMUDGE%M 15 % (0-0)
[2018-06-29] MEDS ORDERED: CEFEPIME 1GM/50 ML (PMX) 50 ML IVPB (21:00)
[2018-06-29] MEDS: VANCOMYCIN 2 GM in SOD CHLORIDE 0.9% 500 ML IVPB (21:59)
[2018-06-29 22:54] LABS: IMMEDIATE SPIN CROSSMATCH 1 1
[2018-06-29 23:34] LABS: LACTIC ACID 4.7 mmol/L (0.5-2.0)
[2018-06-30 01:17] LABS: ADD MAN DIFF? NO
[2018-06-30 01:19] LABS: WHITE BLOOD COUNT 18.6 10^3/ul (4.8-10.8)
[2018-06-30 01:19] LABS: ABNORMAL IP MESSAGE 1; BASOPHILS % 0.1 % (0.0-2.0); EOSINOPHILS % 0.2 % (0.0-7.0); HEMATOCRIT 24.6 % (42.0-52.0); HEMOGLOBIN 7.9 g/dl (14.0-18.0); LYMPHOCYTES # 0.8 10^3/ul (0.8-2.9); LYMPHOCYTES % 4.5 % (15.0-51.0); MEAN CORPUSCULAR HEMOGLOBIN 31.5 pg (29.0-33.0); MEAN CORPUSCULAR HGB CONC 32.1 g/dl (32.0-37.0); MEAN PLATELET VOLUME 13.6 fl (7.4-10.4); MONOCYTE # 0.7 10^3/ul (0.3-0.9); NEUTROPHIL # 16.7 10^3/ul (1.6-7.5); NEUTROPHILS % 89.7 % (39.0-77.0); NUCLEATED RED BLOOD CELLS # 0.2 10^3/ul (0.0-0.0); NUCLEATED RED BLOOD CELLS% 1.1 /100WBC (0.0-0.0); POSITIVE DIFF @See below; RED BLOOD COUNT 2.51 10^6/ul (4.70-6.10); RED CELL DISTRIBUTION WIDTH 21.3 % (11.5-14.5)
[2018-06-30 01:36] LABS: PLATELET COUNT 29 10^3/UL (140-415)
[2018-06-30 05:40] LABS: ADD MAN DIFF? NO
[2018-06-30 05:42] LABS: WHITE BLOOD COUNT 17.3 10^3/ul (4.8-10.8)
[2018-06-30 05:42] LABS: ABNORMAL IP MESSAGE 1; BASOPHILS % 0.1 % (0.0-2.0); EOSINOPHILS % 0.2 % (0.0-7.0); HEMATOCRIT 24.3 % (42.0-52.0); HEMOGLOBIN 7.9 g/dl (14.0-18.0); LYMPHOCYTES # 0.9 10^3/ul (0.8-2.9); LYMPHOCYTES % 5.4 % (15.0-51.0); MEAN CORPUSCULAR HEMOGLOBIN 31.9 pg (29.0-33.0); MEAN CORPUSCULAR HGB CONC 32.5 g/dl (32.0-37.0); MEAN PLATELET VOLUME 14.3 fl (7.4-10.4); MONOCYTE # 0.6 10^3/ul (0.3-0.9); MONOCYTES % 3.6 % (0.0-11.0); NEUTROPHIL # 15.4 10^3/ul (1.6-7.5); NEUTROPHILS % 89.1 % (39.0-77.0); NUCLEATED RED BLOOD CELLS # 0.2 10^3/ul (0.0-0.0); NUCLEATED RED BLOOD CELLS% 1.4 /100WBC (0.0-0.0); POSITIVE DIFF @See below; RED BLOOD COUNT 2.48 10^6/ul (4.70-6.10); RED CELL DISTRIBUTION WIDTH 21.8 % (11.5-14.5)
[2018-06-30] MEDS: LEVOTHYROXINE 100 MCG VIAL IV (05:49)
[2018-06-30] MEDS: PANTOPRAZOLE 40 MG INJ IV ×2 (05:49→18:31)
[2018-06-30] MEDS ORDERED: LEVOTHYROXINE 50 MCG TAB NGT (06:00)
[2018-06-30] MEDS ORDERED: AMIKACIN 400 MG in DEXTROSE 5% 100 ML IVPB (06:00)
[2018-06-30 06:04] LABS: PLATELET COUNT 28 10^3/UL (140-415)
[2018-06-30 06:05] LABS: PLATELET COUNT 28 10^3/UL (140-415)
[2018-06-30 06:08] LABS: INR 2.64; PROTIME 28.9 Sec (11.9-14.9); PT RATIO 2.3
[2018-06-30 06:09] LABS: PARTIAL THROMBOPLASTIN TIME 41.7 Sec (23.0-35.0)
[2018-06-30 06:11] LABS: D-DIMER 1048.17 ng/ml (<460)
[2018-06-30 06:18] LABS: ALANINE AMINOTRANSFERASE 31 IU/L (13-69); ALBUMIN 1.6 g/dl (3.3-4.9); ALBUMIN/GLOBULIN RATIO 0.88; ALKALINE PHOSPHATASE 88 IU/L (42-121); ANION GAP 9 (5-13); ASPARTATE AMINO TRANSFERASE 20 IU/L (15-46); BILIRUBIN,INDIRECT 0.4 mg/dl (0-1.1); BILIRUBIN,TOTAL 0.4 mg/dl (0.2-1.3); BLOOD UREA NITROGEN 31 mg/dl (7-20); CALCIUM 7.1 mg/dl (8.4-10.2); CARBON DIOXIDE 23 mmol/L (21-31); CHLORIDE 115 mmol/L (97-110); CREATININE 3.39 mg/dl (0.61-1.24); GLUCOSE 68 mg/dl (70-220); POTASSIUM 3.3 mmol/L (3.5-5.1); SODIUM 147 mmol/L (135-144); TOTAL PROTEIN 3.4 g/dl (6.1-8.1)
[2018-06-30] MEDS: ALBUTEROL/IPRATROPIUM (NEB) 3 ML AMP HHN ×3 (08:00→20:00)
[2018-06-30 08:08] LABS: FIBRIN SPLIT PRODUCT <10 ug/ml (<10)
[2018-06-30] MEDS: POTASSIUM CHLORIDE 100 ML IVPB (09:02)
[2018-06-30] MEDS: SOD CHLORIDE 0.9% 500 ML IV (09:02)
[2018-06-30] MEDS: CEFEPIME 1GM/50 ML (PMX) 50 ML IVPB (11:00)
[2018-06-30 11:37] LABS: IMMEDIATE SPIN CROSSMATCH 1
[2018-06-30] MEDS: SODIUM HYPOCHLORITE (1/40) 1 APPLIC BTL IRR ×2 (12:30→21:53)
[2018-06-30] MEDS: DEXTROSE 5%-0.9% NACL 1,000 ML IV (12:58)
[2018-06-30 13:43] LABS: WHITE BLOOD COUNT 17.5 10^3/ul (4.8-10.8)
[2018-06-30 13:43] LABS: ABNORMAL IP MESSAGE 1; BASOPHILS % 0.1 % (0.0-2.0); EOSINOPHILS % 0.1 % (0.0-7.0); HEMATOCRIT 29.4 % (42.0-52.0); HEMOGLOBIN 9.7 g/dl (14.0-18.0); LYMPHOCYTES # 0.9 10^3/ul (0.8-2.9); LYMPHOCYTES % 5.1 % (15.0-51.0); MEAN CORPUSCULAR HEMOGLOBIN 31.5 pg (29.0-33.0); MEAN CORPUSCULAR VOLUME 95.5 fl (82.0-101.0); MEAN PLATELET VOLUME 14.3 fl (7.4-10.4); MONOCYTE # 0.6 10^3/ul (0.3-0.9); MONOCYTES % 3.5 % (0.0-11.0); NEUTROPHIL # 15.7 10^3/ul (1.6-7.5); NEUTROPHILS % 90.1 % (39.0-77.0); NUCLEATED RED BLOOD CELLS # 0.3 10^3/ul (0.0-0.0); NUCLEATED RED BLOOD CELLS% 1.6 /100WBC (0.0-0.0); POSITIVE DIFF @See below; RED BLOOD COUNT 3.08 10^6/ul (4.70-6.10); RED CELL DISTRIBUTION WIDTH 20.6 % (11.5-14.5)
[2018-06-30 13:44] LABS: ADD MAN DIFF? NO
[2018-06-30 13:47] LABS: PLATELET COUNT 37 10^3/UL (140-415)
[2018-06-30] MEDS: morphine 2 MG INJ IV (14:54)
[2018-06-30 15:59] LABS: HEPATITIS B SURFACE ANTIGEN NEGATIVE (NEGATIVE)
[2018-06-30] MEDS: CASPOFUNGIN 50 MG in SOD CHLORIDE 0.9% 250 ML IVPB (18:31)
[2018-07-01 05:15] LABS: ADD MAN DIFF? NO
[2018-07-01 05:22] LABS: ABNORMAL IP MESSAGE 1; BASOPHILS % 0.1 % (0.0-2.0); EOSINOPHILS % 0.2 % (0.0-7.0); HEMATOCRIT 29.9 % (42.0-52.0); HEMOGLOBIN 9.6 g/dl (14.0-18.0); LYMPHOCYTES # 1.4 10^3/ul (0.8-2.9); LYMPHOCYTES % 8.2 % (15.0-51.0); MEAN CORPUSCULAR HEMOGLOBIN 31.1 pg (29.0-33.0); MEAN CORPUSCULAR HGB CONC 32.1 g/dl (32.0-37.0); MEAN CORPUSCULAR VOLUME 96.8 fl (82.0-101.0); MEAN PLATELET VOLUME 14.5 fl (7.4-10.4); MONOCYTE # 0.6 10^3/ul (0.3-0.9); MONOCYTES % 3.5 % (0.0-11.0); NEUTROPHIL # 14.4 10^3/ul (1.6-7.5); NEUTROPHILS % 86.7 % (39.0-77.0); NUCLEATED RED BLOOD CELLS # 0.3 10^3/ul (0.0-0.0); NUCLEATED RED BLOOD CELLS% 1.5 /100WBC (0.0-0.0); PLATELET COUNT 34 10^3/UL (140-415); POSITIVE DIFF @See below; RED BLOOD COUNT 3.09 10^6/ul (4.70-6.10); RED CELL DISTRIBUTION WIDTH 21.7 % (11.5-14.5)
[2018-07-01 05:22] LABS: WHITE BLOOD COUNT 16.6 10^3/ul (4.8-10.8)
[2018-07-01] MEDS: LEVOTHYROXINE 100 MCG VIAL IV (05:30)
[2018-07-01] MEDS: PANTOPRAZOLE 40 MG INJ IV ×2 (05:30→17:46)
[2018-07-01 05:55] LABS: ANION GAP 11 (5-13); BLOOD UREA NITROGEN 34 mg/dl (7-20); CALCIUM 7.3 mg/dl (8.4-10.2); CARBON DIOXIDE 20 mmol/L (21-31); CHLORIDE 116 mmol/L (97-110); CREATININE 3.67 mg/dl (0.61-1.24); GLUCOSE 127 mg/dl (70-220); MAGNESIUM 1.6 mg/dl (1.7-2.5); PHOSPHORUS 2.5 mg/dl (2.5-4.9); POTASSIUM 3.9 mmol/L (3.5-5.1); SODIUM 147 mmol/L (135-144)
[2018-07-01 06:03] LABS: VANCOMYCIN,RANDOM 13.2 ug/ml
[2018-07-01] MEDS: DEXTROSE 5%-0.9% NACL 1,000 ML IV (08:50)
[2018-07-01] MEDS: SODIUM HYPOCHLORITE (1/40) 1 APPLIC BTL IRR ×2 (08:50→21:47)
[2018-07-01] MEDS: CEFEPIME 1GM/50 ML (PMX) 50 ML IVPB (08:54)
[2018-07-01] MEDS: ALBUMIN HUMAN 25% 100 ML IV ×2 (09:15→10:40)
[2018-07-01] MEDS: VANCOMYCIN 1 GM 250 ML IVPB ×2 (09:57→13:43)
[2018-07-01] MEDS ORDERED: PHENYLephrine 160 MG in DEXTROSE 5% 484 ML IV (12:00)
[2018-07-01] MEDS: MAGNESIUM SULFATE 2 GM/50 ML 50 ML IVPB (12:18)
[2018-07-01 13:19] LABS: CREATINE KINASE 31 IU/L (23-200)
[2018-07-01 13:32] LABS: CK INDEX 7.6; CK-MB 2.36 ng/ml (0.0-2.4); TROPONIN-I < 0.012 ng/ml (0.000-0.120)
[2018-07-01] MEDS: MEROPENEM 500MG/50 ML (PMX) 50 ML IVPB ×2 (14:36→21:46)
[2018-07-01] MEDS: CASPOFUNGIN 50 MG in SOD CHLORIDE 0.9% 250 ML IVPB (17:28)
[2018-07-01] MEDS: PHENYLephrine 160 MG in DEXTROSE 5% 484 ML IV (17:36)
[2018-07-01] MEDS: EPOETIN 2000 UNITS/1 ML INJ (ESRD) SC (17:44)
[2018-07-01] MEDS: EPOETIN 3000 UNITS/1 ML INJ (ESRD) SC (17:45)
[2018-07-01 19:04] LABS: CREATINE KINASE 48 IU/L (23-200)
[2018-07-01 19:17] LABS: CK INDEX 6.5; TROPONIN-I < 0.012 ng/ml (0.000-0.120)
[2018-07-01 19:20] LABS: CK-MB 3.13 ng/ml (0.0-2.4)
[2018-07-01] MEDS: BALSAM PERU/CASTOR OIL 60 GM TUBE TOP (21:47)
[2018-07-02 01:15] LABS: CREATINE KINASE 58 IU/L (23-200)
[2018-07-02 01:28] LABS: CK INDEX 6.5; TROPONIN-I < 0.012 ng/ml (0.000-0.120)
[2018-07-02 01:34] LABS: CK-MB 3.79 ng/ml (0.0-2.4)
[2018-07-02] MEDS: PHENYLephrine 160 MG in DEXTROSE 5% 484 ML IV ×3 (02:24→19:37)
[2018-07-02 05:23] LABS: ABNORMAL IP MESSAGE 1; HEMATOCRIT 29.2 % (42.0-52.0); HEMOGLOBIN 9.2 g/dl (14.0-18.0); MEAN CORPUSCULAR HEMOGLOBIN 30.4 pg (29.0-33.0); MEAN CORPUSCULAR HGB CONC 31.5 g/dl (32.0-37.0); MEAN CORPUSCULAR VOLUME 96.4 fl (82.0-101.0); NUCLEATED RED BLOOD CELLS% 1.6 /100WBC (0.0-0.0); POSITIVE DIFF @See below; RED BLOOD COUNT 3.03 10^6/ul (4.70-6.10); RED CELL DISTRIBUTION WIDTH 21.7 % (11.5-14.5)
[2018-07-02 05:23] LABS: WHITE BLOOD COUNT 13.9 10^3/ul (4.8-10.8)
[2018-07-02 05:43] LABS: ANION GAP 16 (5-13); BLOOD UREA NITROGEN 19 mg/dl (7-20); CALCIUM 7.8 mg/dl (8.4-10.2); CARBON DIOXIDE 18 mmol/L (21-31); CHLORIDE 108 mmol/L (97-110); CREATININE 2.48 mg/dl (0.61-1.24); GLUCOSE 107 mg/dl (70-220); PHOSPHORUS 1.8 mg/dl (2.5-4.9); POTASSIUM 3.7 mmol/L (3.5-5.1); SODIUM 142 mmol/L (135-144)
[2018-07-02] MEDS: PANTOPRAZOLE 40 MG INJ IV ×2 (05:51→17:43)
[2018-07-02] MEDS: LEVOTHYROXINE 100 MCG VIAL IV (05:52)
[2018-07-02 05:55] LABS: PLATELET COUNT 23 10^3/UL (140-415)
[2018-07-02 05:56] LABS: ADD MAN DIFF? YES
[2018-07-02] MEDS: DEXTROSE 5%-0.9% NACL 1,000 ML IV (06:12)
[2018-07-02 07:27] LABS: ANISOCYTOSIS 1+ (0-0); BAND NEUTROPHILS #M 2.7 10^3/ul (0.0-0.6); BAND NEUTROPHILS % (M) 20 % (0-4); BURR CELLS 1+ (0-0); ERYTHROBLAST% (NRBC) (M) 7 % (0-0); LYMPHOCYTES #M 0.1 10^3/ul (0.8-2.9); LYMPHOCYTES % (M) 1 % (15-51); MONOCYTE #M 0.6 10^3/ul (0.3-0.9); MONOCYTES % (M) 5 % (0-11); PLATELET ESTIMATE SIG DECREASED; POIKILOCYTOSIS 2+ (0-0); SEG NEUT #M 10.7 10^3/ul (1.6-7.5); SEGMENTED NEUTROPHILS (M) % 74 % (39-77); SMUDGE%M 4 % (0-0)
[2018-07-02 07:34] LABS: AADO2 Arterial 112.4 mmHg (7.0-24.0); Allen Test ACCEPTAB; Arterial Base Excess -9.1 mmol/L (-3.0-3); Arterial Blood Gas Oxygen Sat 91.7 mmHG (95.0-100.0); Arterial COHb 0.2 % (0.0-3.0); Arterial Fraction of Oxyhgb 91.4 % (93.0-99.0); Arterial HCO3 13.6 mmol/L (22.0-26.0); Arterial MetHb 0.1 % (0.0-1.5); Arterial Total Hemglobin 10.8 g/dl (12.0-18.0); Arterial pCO2 21.3 mmhg (35-45); MODE TRACH COLLAR; Site Right Radial
[2018-07-02] MEDS: MAGNESIUM SULFATE 2 GM/50 ML 50 ML IVPB (08:39)
[2018-07-02] MEDS: MEROPENEM 500MG/50 ML (PMX) 50 ML IVPB ×2 (09:07→20:57)
[2018-07-02] MEDS: SODIUM HYPOCHLORITE (1/40) 1 APPLIC BTL IRR ×2 (09:07→21:00)
[2018-07-02] MEDS: BALSAM PERU/CASTOR OIL 60 GM TUBE TOP ×2 (09:07→21:00)
[2018-07-02] MEDS: VASOPRESSIN 60 UNIT in DEXTROSE 5% 57 ML IV ×2 (12:05→17:58)
[2018-07-02] MEDS: COLISTIMETHATE 100 MG in SOD CHLORIDE 0.9% 100 ML IVPB (16:21)
[2018-07-02] MEDS: CASPOFUNGIN 50 MG in SOD CHLORIDE 0.9% 250 ML IVPB (17:43)
[2018-07-03] MEDS: DEXTROSE 5%-0.9% NACL 1,000 ML IV
[2018-07-03] MEDS: PHENYLephrine 160 MG in DEXTROSE 5% 484 ML IV (03:23)
== END 2018-07-03 10:32 | disposition expired | DRG 871 ==
LOC: ICU 14:30
PROC: 06HN33Z Insertion of Infusion Device into Left Femoral Vein, Percutaneous Approach (ICD-10-PCS; 2018-06-29)
PROC: 30233K1 Transfusion of Nonautologous Frozen Plasma into Peripheral Vein, Percutaneous Approach (ICD-10-PCS; 2018-06-29)
PROC: 30233N1 Transfusion of Nonautologous Red Blood Cells into Peripheral Vein, Percutaneous Approach (ICD-10-PCS; 2018-06-30)
PROC: 5A1D70Z Performance of Urinary Filtration, Intermittent, Less than 6 Hours Per Day (ICD-10-PCS; principal; 2018-07-01)
DX: A41.9 Sepsis, unspecified organism (principal); L89.154 Pressure ulcer of sacral region, stage 4; L89.894 Pressure ulcer of other site, stage 4; R65.21 Severe sepsis with septic shock; N18.6 End stage renal disease; D65 Disseminated intravascular coagulation [defibrination syndrome]; N17.9 Acute kidney failure, unspecified; E87.0 Hyperosmolality and hypernatremia; I13.2 Hypertensive heart and chronic kidney disease with heart failure and with stage 5 chronic kidney disease, or end stage renal disease; I50.32 Chronic diastolic (congestive) heart failure; G93.49 Other encephalopathy; K56.699 Other intestinal obstruction unspecified as to partial versus complete obstruction; J96.10 Chronic respiratory failure, unspecified whether with hypoxia or hypercapnia; D63.1 Anemia in chronic kidney disease; E11.22 Type 2 diabetes mellitus with diabetic chronic kidney disease; E87.6 Hypokalemia; E03.9 Hypothyroidism, unspecified; I48.0 Paroxysmal atrial fibrillation; I46.8 Cardiac arrest due to other underlying condition; K27.9 Peptic ulcer, site unspecified, unspecified as acute or chronic, without hemorrhage or perforation; K60.3 Anal fistula; R13.10 Dysphagia, unspecified; Z66 Do not resuscitate; Z99.2 Dependence on renal dialysis; Z93.0 Tracheostomy status; Z93.2 Ileostomy status; Z79.4 Long term (current) use of insulin; Z99.81 Dependence on supplemental oxygen
CPT/HCPCS: 36430; 36600; 71045; 80048; 80053; 80202; 82550; 82553; 82803; 83605; 83735; 84100; 84484; 85025; 85049; 85362; 85378; 85384; 85610; 85670; 85730; 86850; 86900; 86901; 86920; 87040; 87081; 87340; 90935; 93970; 94664